=== PATIENT | female | born 1965 | race Caucasian/White ===

== ENCOUNTER 2016-08-08 10:08 | Inpatient (IN) | payer OTHER ==
[~2016-08-08] VITALS: Ht 175.2 cm; Wt 88.7 kg
[2016-08-08] VITALS (8 sets, daily range): BP systolic 122–153; BP diastolic 62–73
--- NOTE | ~2016-08-08 | CON ---
[place], [place] REPORT OF CONSULTATION NAME: GUILLERMO BURGOS UNIT #: [id number] ROOM: 526 DOCTOR: KIAH MCINTOSH MD BIRTHDATE: [birth year] DOS: 08/08/2016 HISTORY OF PRESENT ILLNESS: This is a 50-year-old -[place] woman with a history of coronary artery disease. She had coronary stents deployed in 2006 and 2007, Dr. Lobo did the procedure. First procedure was done following an acute coronary event. She has essential hypertension, hyperlipidemia, type 2 diabetes mellitus, chronic kidney disease stage 3, peripheral arterial disease and peripheral neuropathy, fibromyalgia, GERD and osteoarthritis. She has had gynecological procedures done, lithotripsy. She has never smoked cigarettes, does not use alcoholic beverages. Lives at home. She was feeling fine yesterday. In the middle of the night, she did not feel quite right. She had some pressure-like feeling. She woke around 5:30 this morning and by 8:00, she still had this heavy feeling in the chest with some sharp stabbing feeling as well. Deep breaths did not make any difference to this feeling, it did not radiate to the neck, arm or into the back. She was mildly short of breath. She did have mild diaphoresis and some palpitations. She did not pass out. She took a couple of nitroglycerins with no relief and came to the Emergency Department and was admitted for further workup. Previously, she has not had any PND, orthopnea, or swelling of the legs. Her legs do not hurt when she walks. There has not been any exertional shortness of breath or chest pain recently. HOME MEDICATIONS: Include aspirin, atenolol, furosemide, gabapentin, Imdur 60 mg b.i.d., metformin 1 gram in the morning and 500 in the evening, sublingual nitroglycerin, ranitidine, and tramadol. PHYSICAL EXAMINATION: GENERAL: This reveals the patient who is slightly overweight, very pleasant, alert. She is very comfortable. There is no anemia, thyromegaly, finger clubbing. She is not jaundiced. VITAL SIGNS: Pulse is irregular at 64, blood pressure 125/62. NECK: Normal JVP. AJR is negative. There is no carotid bruit. HEART: There is no cardiomegaly. Cardiac auscultation reveals no murmurs or rubs. Good pedal pulses and no edema in lower extremities. RESPIRATORY: Clear to percussion and auscultation. There is no chest wall tenderness. ABDOMEN: Supple, nontender, no obvious organomegaly. LABORATORY DATA: An ECG showed normal sinus rhythm with a normal pattern. Troponin I level several hours after onset of symptom was also negative. IMPRESSION: This patient with known coronary artery disease and many risk factors for atherosclerosis had chest symptoms, chest pain along with little diaphoresis and shortness of breath and palpitations. These symptoms are of some concern; however, she is absolutely asymptomatic at this time. RECOMMENDATIONS: I have asked the patient to walk briskly in the hallway a few [place], [place] REPORT OF CONSULTATION NAME: GUILLERMO BURGOS UNIT #: [id number] ROOM: 526 DOCTOR: KIAH MCINTOSH MD BIRTHDATE: [birth year] times. If she rules out for an acute myocardial infarction and has no symptoms with moderate activity, I think it would be safe for her to be discharged and can follow up with Dr. Lobo within the next week or two. I thank you on behalf of Dr. Lobo. KIAH MCINTOSH MD CM:CONSTR:REPORT OF CONSULTATION 1916 08/09/16 0547 interface
[~2016-08-08 10:08] MED LIST: APAP/OXYCODONE1 TA2 PO; ASPIRIN81 M1 PO; ATENOLOL25 MG; ATIVAN1 MG PO; BACITRACIN500 U/G1 TP; BACTRIM DS 8001 TAB PO; CETIRIZINE10 MG PO; CIPRO500 MG PO; CIPROFLOXACIN500 MG PO; CLARITIN10 MG PO; CLEOCIN HCL300 MG PO; CLINDAMYCIN HC300 MG PO; CLINDAMYCIN300 MG PO; CUBICIN500 MG IV; Carafate1 GM PO; Carafate1 GM/10 ML PO; DARVOCET N 1001 TAB PO; DAYPRO600 M1 PO; DIABETA5 MG; DIFLUCAN100 MG PO; FISH OIL500 MG; FLEXERIL5 MG PO; GLIPIZIDE5 MG PO; GLUCOPHAGE1000 MG PO; GLUCOPHAGE500 M1 PO; GLUCOPHAGE500 MG; GOOD NEIGHBOR150 MG PO; HUMALOG100 U/ML SC; HYDROCODONE BIT1 T11 PO; IMDUR SA60 MG PO; LANTUS100 U/ML SC; LASIX20 MG PO; LIPITOR40 MG PO; LISINOPRIL2.5 MG PO; MEDROL DOSEPAK4 MG PO; METFORMIN500 MG PO; MOTRIN600 MG PO; MOTRIN800 MG PO; NAPROSYN500 MG PO; NEURONTIN100 MG; NEURONTIN100 MG PO; NEURONTIN300 MG PO; NEURONTIN600 MG PO; NEXIUM40 MG PO; NITROGLYCERIN0.4 MG SL; NORCO 325 MG-51 TAB PO; NYAMYC100000 U/G T; OMEPRAZOLE D/R20 MG PO; PREDNICOT10 MG PO; PREDNISONE20 MG PO; PREVACID SOLUTA30 MG PO; PRILOSEC40 M1 PO; PROVENTIL0.09 MG/A1 INH; ROBAXIN750 MG PO; SEPTRA DS 800 M1 TAB PO; SIMVASTATIN20 MG PO; SIMVASTATIN5 MG PO; TENORMIN25 M1 PO; TRAMADOL HCL50 MG PO; ULTRAM50 MG; VALIUM10 MG PO; VANCOCIN1000 MG/25 IV; VICO10300 PO; VICODIN 5-3001 EACH PO; VICODIN 5/500 505 MG PO; VICODIN 500 MG-1 TAB PO; VICODIN ES 7501 TAB PO; ZANTAC150 MG PO; ZITHROMAX Z PA250 MG PO; ZOCOR40 MG PO; ZOFRAN4 MG PO; ZOVIRAX800 MG PO; ZYVOX600 MG PO
[2016-08-08 10:42] LABS: BASO % 0.6 % (0.0-1.0); EOS # 0.1 10*3/uL (0.0-0.4); EOS % 2.6 % (1.0-4.0); HEMATOCRIT 34.3 % (37.0-47.0); HEMOGLOBIN 11.1 g/dl (12.0-16.0); LYMPH # 1.7 10*3/uL (1.3-4.4); LYMPH % 31.8 % (27.0-41.0); MEAN CELL VOLUME 95.5 fl (81.0-99.0); MEAN CORPUSCULAR HGB 30.9 pg (27.0-31.0); MEAN CORPUSCULAR HGB CONC 32.4 g/dl (33.0-37.0); MEAN PLATELET VOLUME 10.3 fl (9.6-12.3); MONO # 0.2 10*3/uL (0.1-1.0); MONO % 4.1 % (3.0-9.0); NEUT # 3.3 10*3/uL (2.3-7.9); NEUT % 60.7 % (47.0-73.0); PLATELET COUNT AUTOMATED 169 10*3/uL (130-400); RED BLOOD COUNT 3.59 10*6/uL (4.10-5.10); RED CELL DISTRI WIDTH 13.8 % (0-14.5); WHITE BLOOD COUNT 5.4 10*3/uL (4.8-10.8)
[2016-08-08 10:50] LABS: PROTHROMBIN TIME 10.3 SECONDS (9.0-12.4)
[2016-08-08 10:58] LABS: ALKALINE PHOSPHATASE 73 U/L (45-117); BILIRUBIN, TOTAL 0.4 mg/dl (0.2-1.0); BUN 12 mg/dl (7-24); CARBON DIOXIDE 26 mmol/L (21-32); CHLORIDE 108 mmol/L (98-107); EST GLOM FILT AFRICAN AMERICAN > 60 ml/min; GLUCOSE 122 mg/dL (65-99); MAGNESIUM 1.9 mg/dL (1.5-2.1); SGOT/AST 23 IU/L (3-35); SGPT/ALT 41 U/L (12-78); SODIUM 142 mmol/L (136-145); TOTAL PROTEIN 7.9 gm/dL (6.4-8.2); TROPONIN I < 0.015 ng/ml (<0.045)
[2016-08-08] MEDS ORDERED: ZANTAC 150150 MG PO (13:42)
[2016-08-08 18:14] LABS: CKMB 1.8 ng/ml (0.5-3.6); CPK 94 U/L (26-192)
[2016-08-08 18:15] LABS: TROPONIN I < 0.015 ng/ml (<0.045)
[2016-08-09] VITALS: BP 110/62
[2016-08-09 00:44] LABS: CKMB 1.8 ng/ml (0.5-3.6); CPK 91 U/L (26-192)
[2016-08-09 00:45] LABS: TROPONIN I < 0.015 ng/ml (<0.045)
[2016-08-09 05:52] LABS: CKMB 1.7 ng/ml (0.5-3.6); CPK 89 U/L (26-192); TROPONIN I < 0.015 ng/ml (<0.045)
[2016-08-09 05:57] LABS: BASO % 0.5 % (0.0-1.0); EOS # 0.2 10*3/uL (0.0-0.4); EOS % 3.4 % (1.0-4.0); HEMATOCRIT 31.7 % (37.0-47.0); HEMOGLOBIN 10.3 g/dl (12.0-16.0); LYMPH # 2.4 10*3/uL (1.3-4.4); LYMPH % 42.8 % (27.0-41.0); MEAN CELL VOLUME 95.5 fl (81.0-99.0); MEAN CORPUSCULAR HGB CONC 32.5 g/dl (33.0-37.0); MEAN PLATELET VOLUME 10.1 fl (9.6-12.3); MONO # 0.3 10*3/uL (0.1-1.0); MONO % 5.1 % (3.0-9.0); NEUT # 2.6 10*3/uL (2.3-7.9); PLATELET COUNT AUTOMATED 179 10*3/uL (130-400); RED BLOOD COUNT 3.32 10*6/uL (4.10-5.10); RED CELL DISTRI WIDTH 13.7 % (0-14.5); WHITE BLOOD COUNT 5.5 10*3/uL (4.8-10.8)
[2016-08-09 06:04] LABS: HEMOGLOBIN A1c 6.3 % (4.8-5.6)
[2016-08-09 06:15] LABS: PROTHROMBIN TIME 10.6 SECONDS (9.0-12.4)
[2016-08-09 06:28] LABS: CHLORIDE 108 mmol/L (98-107); POTASSIUM 3.9 mmol/L (3.5-5.1); SODIUM 143 mmol/L (136-145)
[2016-08-09 06:38] LABS: ALBUMIN 3.7 gm/dl (3.1-4.5); ALKALINE PHOSPHATASE 57 U/L (45-117); BILIRUBIN, TOTAL 0.4 mg/dl (0.2-1.0); BUN 15 mg/dl (7-24); CARBON DIOXIDE 26 mmol/L (21-32); CHOLESTEROL 159 mg/dL (<200); EST GLOM FILT AFRICAN AMERICAN > 60 ml/min; GLUCOSE 74 mg/dL (65-99); HDL CHOLESTEROL 63 mg/dl (40-60); LDL CHOLESTEROL 66 mg/dL (9-159); MAGNESIUM 2.2 mg/dL (1.5-2.1); PHOSPHOROUS 3.4 mg/dL (2.5-4.9); SGOT/AST 15 IU/L (3-35); SGPT/ALT 36 U/L (12-78); THYROID STIM HORMONE (HS) 0.925 uIU/ml (0.358-4.75); TOTAL PROTEIN 7.5 gm/dL (6.4-8.2); TRIGLYCERIDES 149 mg/dl (<150); VLDL CHOLESTEROL 30 mg/dL (6-40)
[2016-08-09 06:54] LABS: FOLIC ACID 12.91 ng/mL (>5.38); VITAMIN D, 25-HYDROXY 10.3 ng/mL (30-100)
[2016-08-09 08:00] VITALS: BP 98/66
== END 2016-08-09 11:21 | disposition home or self-care (01) | DRG 206 ==
LOC: ED 10:08 → EDHOLD 11:51 → 5E 11:51 → EDHOLD 12:31 → 5E 13:17
PROVIDERS: Emergency Medicine; Internal Medicine
DX: M94.0 Chondrocostal junction syndrome [Tietze] (principal); E11.22 Type 2 diabetes mellitus with diabetic chronic kidney disease; E11.42 Type 2 diabetes mellitus with diabetic polyneuropathy; E11.65 Type 2 diabetes mellitus with hyperglycemia; N18.3 Chronic kidney disease, stage 3 (moderate); K21.9 Gastro-esophageal reflux disease without esophagitis; I25.119 Atherosclerotic heart disease of native coronary artery with unspecified angina pectoris; E11.51 Type 2 diabetes mellitus with diabetic peripheral angiopathy without gangrene; I12.9 Hypertensive chronic kidney disease with stage 1 through stage 4 chronic kidney disease, or unspecified chronic kidney disease; M79.7 Fibromyalgia; Z95.5 Presence of coronary angioplasty implant and graft; Z88.1 Allergy status to other antibiotic agents; Z88.0 Allergy status to penicillin; Z88.8 Allergy status to other drugs, medicaments and biological substances; Z79.899 Other long term (current) drug therapy; Z98.51 Tubal ligation status; Z82.49 Family history of ischemic heart disease and other diseases of the circulatory system; Z80.8 Family history of malignant neoplasm of other organs or systems; Z79.82 Long term (current) use of aspirin; Z79.84 Long term (current) use of oral hypoglycemic drugs

== ENCOUNTER 2016-10-05 05:32 | Emergency (ER) | payer OTHER ==
[~2016-10-05] VITALS: Ht 175.2 cm; Wt 88.5 kg
--- NOTE | ~2016-10-05 | EKG ---
[place], [place] ELECTROCARDIOGRAM REPORT NAME: GUILLERMO BURGOS UNIT #: [id number] ROOM: DOCTOR: KIRT DONAHUE MD BIRTHDATE: [birth year] DOS: 10/05/2016 TIME: 5:40:09 Normal sinus rhythm with PACs, normal intervals, nonspecific ST-T changes. KIRT DONAHUE MD CM:EKGRPT:ELECTROCARDIOGRAM REPORT [id number] 1631 KIRT DONAHUE MD
[~2016-10-05 05:32] MED LIST changes: +ZANTAC 150150 MG PO
[2016-10-05] MEDS ORDERED: BACTROBAN OINT0.9 GM T (05:44)
[2016-10-05] MEDS ORDERED: SEPTRA DS 800 M1 TAB PO (05:44)
[2016-10-05 05:50] LABS: BASO % 0.4 % (0.0-1.0); EOS # 0.2 10*3/uL (0.0-0.4); EOS % 2.2 % (1.0-4.0); HEMATOCRIT 33.2 % (37.0-47.0); HEMOGLOBIN 10.5 g/dl (12.0-16.0); LYMPH # 1.7 10*3/uL (1.3-4.4); LYMPH % 24.3 % (27.0-41.0); MEAN CELL VOLUME 96.5 fl (81.0-99.0); MEAN CORPUSCULAR HGB 30.5 pg (27.0-31.0); MEAN CORPUSCULAR HGB CONC 31.6 g/dl (33.0-37.0); MEAN PLATELET VOLUME 10.2 fl (9.6-12.3); MONO # 0.3 10*3/uL (0.1-1.0); MONO % 3.9 % (3.0-9.0); NEUT # 4.8 10*3/uL (2.3-7.9); NEUT % 69.1 % (47.0-73.0); PLATELET COUNT AUTOMATED 204 10*3/uL (130-400); RED BLOOD COUNT 3.44 10*6/uL (4.10-5.10); RED CELL DISTRI WIDTH 13.2 % (0-14.5); WHITE BLOOD COUNT 6.9 10*3/uL (4.8-10.8)
[2016-10-05 06:04] LABS: PROTHROMBIN TIME 10.6 SECONDS (9.0-12.4)
[2016-10-05 06:08] LABS: ALBUMIN 3.9 gm/dl (3.1-4.5); ALKALINE PHOSPHATASE 81 U/L (45-117); BILIRUBIN, TOTAL 0.2 mg/dl (0.2-1.0); BUN 15 mg/dl (7-24); CARBON DIOXIDE 26 mmol/L (21-32); CHLORIDE 107 mmol/L (98-107); EST GLOM FILT AFRICAN AMERICAN 48 ml/min; GLUCOSE 157 mg/dL (65-99); SGOT/AST 28 IU/L (3-35); SGPT/ALT 34 U/L (12-78); SODIUM 141 mmol/L (136-145); TOTAL PROTEIN 8.3 gm/dL (6.4-8.2)
[2016-10-05 06:11] LABS: TROPONIN I < 0.015 ng/ml (<0.045)
[2016-10-05 06:45] VITALS: BP 109/53
== END 2016-10-05 08:13 | disposition short-term general hospital (02) ==
LOC: ED 05:32
PROVIDERS: Emergency Medicine
DX: R07.89 Other chest pain (principal); R51 Headache; R11.0 Nausea; R06.02 Shortness of breath; I25.10 Atherosclerotic heart disease of native coronary artery without angina pectoris; I12.9 Hypertensive chronic kidney disease with stage 1 through stage 4 chronic kidney disease, or unspecified chronic kidney disease; N18.3 Chronic kidney disease, stage 3 (moderate); K21.9 Gastro-esophageal reflux disease without esophagitis; M19.90 Unspecified osteoarthritis, unspecified site; G62.9 Polyneuropathy, unspecified; E11.9 Type 2 diabetes mellitus without complications; M86.8X7 Other osteomyelitis, ankle and foot; Z79.4 Long term (current) use of insulin; Z88.1 Allergy status to other antibiotic agents; Z88.0 Allergy status to penicillin; Z88.8 Allergy status to other drugs, medicaments and biological substances; Z79.899 Other long term (current) drug therapy; Z79.82 Long term (current) use of aspirin

== ENCOUNTER 2017-02-16 04:48 | Inpatient (IN) | payer OTHER ==
[~2017-02-16] VITALS: Ht 175.3 cm; Wt 85.8 kg
[2017-02-16] VITALS (42 sets, daily range): BP systolic 96–159; BP diastolic 49–91
--- NOTE | ~2017-02-16 | CON ---
[place], [place] REPORT OF CONSULTATION NAME: GUILLERMO BURGOS UNIT #: [id number] ROOM: [place] [address] DOCTOR: KIRT DONAHUE MD BIRTHDATE: [birth year] DOS: 02/16/2017 HISTORY OF PRESENT ILLNESS: The patient is very well known to me with a known history of significant coronary artery disease. The patient has a catheterization in October showed 100% blockage of the posterior descending branch of the RCA, anterior descending artery about 50% stenosis. The patient had 2 stents in 2006 and 2007, came in with severe chest discomfort started on a nitro drip and ruled out for myocardial infarction. No acute EKG change suggestion of myocardial ischemia. The patient insisted to have chest discomfort, and today, she feels somewhat better. I was called to see the patient yesterday had discussed with Dr. Wilson because of her persistent pain already moans severe coronary artery disease. The patient has intermittent pain radiating to the left arm, suggestion of unstable angina, resting angina. We will set her up for heart catheterization. The patient is already on maximum medication. She does have some shortness of breath, was diaphoretic. As mentioned, no acute EKG changes, myocardial injury or infarction. PAST MEDICAL HISTORY: Coronary artery disease, hypertension, hyperlipidemia, known coronary artery disease, peripheral arterial disease, neuropathy. PAST SURGICAL HISTORY: D and C, coronary artery disease, stent placement, lithotripsy cystectomy, tubal ligation. SOCIAL HISTORY: Consumes alcohol occasionally. Denies any drug abuse or tobacco abuse. FAMILY HISTORY: Positive for coronary artery disease. ALLERGIES: BACTRIM, VANCOMYCIN, IODINE, OLMESARTAN AND PENICILLIN. HOME MEDICATIONS: Aspirin, carvedilol, Lasix, isosorbide, insulin, metformin, nitroglycerin, and ranitidine. REVIEW OF SYSTEMS: CONSTITUTIONAL: ____. HEENT: Unremarkable. CARDIOVASCULAR: As reported in HPI. GASTROINTESTINAL: No nausea, no vomiting. GENITOURINARY: No dysuria, hematuria. NEUROLOGIC: No syncope. PHYSICAL EXAMINATION: VITAL SIGNS: Blood pressure is 120/60. HEENT: Unremarkable. NECK: Supple, no JVD. LUNGS: Clear. HEART: Sounds are regular. ABDOMEN: Soft, nontender. NEUROLOGICAL: Stable. [place], [place] REPORT OF CONSULTATION NAME: GUILLERMO BURGOS UNIT #: [id number] ROOM: [place] [address] DOCTOR: ROWAN ALEMAN,KIRT BIRTHDATE: [birth year] LABORATORY DATA: Electrolytes are normal. Liver functions normal. Hemoglobin and hematocrit within normal limits. Cardiac enzymes have been negative. EKG sinus rhythm. No acute ST elevation or depression. IMPRESSION: The patient with known severe coronary artery disease, stent placement placed by me in 2006 and also in 2007, repeat heart catheterization in October showed 100% occluded posterior descending branch of the right coronary artery and moderate disease of the left anterior descending artery with recurrent resting angina, already on maximize medical therapy, class 3 to class 4 angina intermittently because of known recently, continue the beta-blockers, TERENCE inhibitors, lipid-lowering agents, aspirin and we will schedule her for heart catheterization in the morning. Discussed with the patient in detail. The patient does understand the risks and the benefits. She does not want to go anywhere except go to at [place] and I will set it up ____. KIRT DONAHUE MD CM:CONSTR:REPORT OF CONSULTATION 0746 02/18/17 0252 interface
--- NOTE | ~2017-02-16 | CON ---
[place], [place] REPORT OF CONSULTATION NAME: GUILLERMO BURGOS UNIT #: [id number] ROOM: [place] [address] DOCTOR: AKIL QIU MD BIRTHDATE: [birth year] DOS: 02/16/2017 REASON FOR CONSULTATION: Chest pain. HISTORY OF PRESENT ILLNESS: The patient is a 51-year-old woman who has had coronary artery disease documented since her mid 40s. She is typically followed by Dr. Lobo who has done several catheterizations on her in the past. She had angioplasties done in 2006, at which time a stent was placed in her circumflex. She also reportedly had a stent placed in 2007, but the location is not currently available. Her most recent catheterization on 10/08/2069 showed a 50% in-stent stenosis in the circumflex. The LAD and left main were patent. There was a total chronic occlusion of the right coronary artery with distal collateral fill. The patient was managed medically. Ejection fraction at the time of that catheterization was normal at 55%. The patient was well until this morning. Around 4:00 a.m., she was awake when she began to notice a new pain in her shoulders and back. She states that the pain was associated with diaphoresis and nausea. She also notes that she has been quite fatigued lately. She became concerned about this constellation of symptoms and therefore came to the Emergency Room. Carvedilol and nitroglycerin did not seem to give her any relief. Her electrocardiogram did not show any acute ST-T changes. In the hospital, she has been given narcotic pain medications along with intravenous nitroglycerin and her symptoms have improved, but have persisted. At this time, her symptoms have been present for about 12 hours. Her troponin levels have all been normal. PAST MEDICAL HISTORY: Includes the followin. Essential hypertension. 2. Hyperlipidemia. 3. Type 2 diabetes mellitus. 4. Chronic renal insufficiency, graded at stage III. 5. Peripheral arterial disease. 6. Gastroesophageal reflux disease. 7. Degenerative joint disease. 8. Fibromyalgia. 9. Peripheral neuropathy. 10. History of coronary artery disease, status post stents to the circumflex in 2006 and repeat stent placement in 2007 (vessel unknown). 11. Catheterization on 10/08/2016 showed a 50% left circumflex in-stent stenosis with good flow. The left main and LAD were patent. The right coronary artery had a total chronic occlusion with collateral fill. It was felt that she should be treated medically. MEDICATIONS: At the time of admission included aspirin 81 mg daily, carvedilol 3.125 mg b.i.d., the patient takes a half tablet b.i.d., furosemide 20 mg daily as needed, gabapentin 600 mg t.i.d., isosorbide 60 mg b.i.d., lorazepam 0.5 mg daily p.r.n., metformin 500 mg daily at 4:00 p.m. with 1000 mg daily in the morning, ranitidine 150 mg b.i.d., tramadol 50 mg t.i.d., Lantus insulin 45 units at bedtime, nitroglycerin sublingually p.r.n., and Bactroban ointment applied to the right third toe twice a day. [place], [place] REPORT OF CONSULTATION NAME: GUILLERMO BURGOS UNIT #: [id number] ROOM: [place] [address] DOCTOR: AKIL QIU MD BIRTHDATE: [birth year] ALLERGIES: She lists allergies to IODINE including CONTRAST AGENTS, SULFA DRUGS, TRIMETHOPRIM, VANCOMYCIN, TAPE, OLMESARTAN and PENICILLIN. REVIEW OF SYSTEMS: The patient denies diplopia or loss of vision. She denies focal weakness. She denies lightheadedness or syncope. She has felt hot and breathless. She has been diaphoretic. She has been nauseous. She denies vomiting, hemoptysis or hematemesis. She denies any obvious skin rashes. She denies any bleeding from her bowels or bladder. She denies hot or cold intolerance and denies polydipsia or polyuria. She denies any peripheral edema. Remainder of the review of systems is negative except as noted above. FAMILY HISTORY: Negative for early coronary artery disease. SOCIAL HISTORY: The patient does not smoke or consume significant amounts of alcohol. PHYSICAL EXAMINATION: GENERAL: The patient is a well-nourished white female who is awake, alert and oriented. VITAL SIGNS: Pulse is 66 and regular, blood pressure is 130/70 in both arms. She is afebrile. She weighs 85.8 kg and has a body mass index of 27.9. HEENT: Normocephalic, atraumatic. Extraocular muscles are intact. Sclerae are clear. Pupils equal, round and react to light. The oral mucosa is moist. Tongue is midline. NECK: Supple. She has no jugular distention. Carotids are full. I heard no bruits. She had no neck or supraclavicular masses. No thyromegaly. LUNGS: Respirations are unlabored. CHEST: Clear to auscultation and percussion. She has no presacral edema or chest wall tenderness. HEART: Has a regular rhythm. She has a fourth heart sound, but no third heart sound or murmur. The PMI is not displaced. There is no precordial heave, lift or thrill. ABDOMEN: Soft and normally active without masses, organomegaly or bruits. EXTREMITIES: Showed no clubbing, cyanosis or edema. Peripheral pulses are easily palpated in the feet bilaterally. LABORATORY DATA: I reviewed her electrocardiograms and did show sinus rhythm with nonspecific lateral ST segment changes, but no definite ST elevation or depression. Serial troponin levels have been normal x 3. Hemoglobin is 10.7, white count 6300 and platelet count 175,000. Sodium 136, potassium 3.9, BUN 13, creatinine 1.42 with estimated GFR 39. Hemoglobin A1c is 7.3. IMPRESSION: Atypical chest pain. The patient has several risk factors for coronary artery disease and does have a history of coronary artery disease; however, despite prolonged pain, she does not have any objective findings to suggest unstable angina or an acute coronary syndrome. PLAN: For now I think that we should continue to observe her and follow serial cardiac biomarkers. We will also follow serial EKGs. If she does develop acute [place], [place] REPORT OF CONSULTATION NAME: GUILLERMO BURGOS UNIT #: [id number] ROOM: [place] [address] DOCTOR: AKIL QIU MD BIRTHDATE: [birth year] changes or an elevation in troponin, she probably should be transferred to a tertiary center for repeat catheterization. Given her DYE allergy, she will need to be pretreated to prevent anaphylaxis. We will follow her until such time that Dr. Mann can resume his care of the patient. AKIL QIU MD CM:CONSTR:REPORT OF CONSULTATION 1723 02/16/17 1758 interface
[~2017-02-16 04:48] MED LIST changes: +BACTROBAN OINT0.9 GM T
[2017-02-16 05:10] LABS: BASO % 0.6 % (0.0-1.0); EOS # 0.2 10*3/uL (0.0-0.4); EOS % 3.3 % (1.0-4.0); HEMATOCRIT 32.5 % (37.0-47.0); HEMOGLOBIN 10.7 g/dl (12.0-16.0); LYMPH # 2.6 10*3/uL (1.3-4.4); LYMPH % 40.2 % (27.0-41.0); MEAN CELL VOLUME 94.5 fl (81.0-99.0); MEAN CORPUSCULAR HGB 31.1 pg (27.0-31.0); MEAN CORPUSCULAR HGB CONC 32.9 g/dl (33.0-37.0); MEAN PLATELET VOLUME 9.8 fl (9.6-12.3); MONO # 0.3 10*3/uL (0.1-1.0); MONO % 4.9 % (3.0-9.0); NEUT # 3.2 10*3/uL (2.3-7.9); NEUT % 50.7 % (47.0-73.0); PLATELET COUNT AUTOMATED 175 10*3/uL (130-400); RED BLOOD COUNT 3.44 10*6/uL (4.10-5.10); WHITE BLOOD COUNT 6.3 10*3/uL (4.8-10.8)
[2017-02-16 05:26] LABS: ALBUMIN 3.7 gm/dl (3.1-4.5); ALKALINE PHOSPHATASE 114 U/L (45-117); BUN 13 mg/dl (7-24); CHLORIDE 102 mmol/L (98-107); CREATININE 1.42 mg/dL (0.55-1.02); POTASSIUM 3.9 mmol/L (3.5-5.1); SGOT/AST 16 IU/L (3-35); SGPT/ALT 36 U/L (12-78); SODIUM 136 mmol/L (136-145)
[2017-02-16 05:28] LABS: TROPONIN I < 0.015 ng/ml (<0.045)
--- NOTE | 2017-02-16 06:15 | NUR ---
A 51, admitted to [facility], under the services of MCKAYLA Bowden DO with a diagnosis of CHEST PAIN WITH HIGH RISK FOR CARDIAC ETIOLOGY. Chief complaint is CHEST PAIN. Patient arrived via stretcher from ER. Monitor applied. Initial assessment completed. Vital signs taken and recorded. MCKAYLA BOWDEN DO notified of admission to the unit. Orders received. See assessment for past medical history, medications and allergies. Patient and/or family oriented to unit. [facility] visitation policy reviewed. Clothing/patient valuable form completed. YFN ASH
[2017-02-16] MEDS ORDERED: ATIVAN0.5 MG PO (06:50)
[2017-02-16] MEDS ORDERED: COREG3.125 MG PO (06:52)
--- NOTE | 2017-02-16 07:14 | NUR ---
MED REC WAS JUST COMPLETED BY ADMITTING NURSE.
--- NOTE | 2017-02-16 07:30 | NUR ---
Shift chart check completed. RESTING IN BED WITH NTG DRIP AT 10MCG VIA ASYMPTOMATIC SITE
--- NOTE | 2017-02-16 07:59 | NUR ---
SPOKE WITH DR DONAHUE - HEART CATH IN SEPTEMBER SO GET RECORDS ON CHART. DR DONAHUE SPOKE WITH DR ESPARZA
--- NOTE | 2017-02-16 10:05 | NUR ---
SLEEPING AFTER MEDICATED WITH ULTRAM THEN GI COCTAIL & EATING. NTG DRIP REMAINS AT 10mcg
--- NOTE | 2017-02-16 11:05 | NUR ---
GUILLERMO BURGOS [id number] Please refer to the physician's history and physical for past medical history, comorbid conditions, and allergies. Diagnosis: CHEST PAIN WITH HIGH RISK FOR CARIAC ETIOLOGY Jacob Score: 22,LOW OR NO RISK WOUND DESCRIPTIONS: Location of the wound: left 2 second toe Type of wound: unstagable Thickness: Full Size: 0.5cm x 0.5cm x <0.1cm Tunneling: none Undermining: none Sinus Tract: none Presence of Exudate: Amount: None Color: Brown Odor: None Periwound Skin Appearance: Wound edges: callus Pain (associated with wound): patient denied pain at time of assessment How does patient state this happened? Patient states she had been wearing boots and noticed it. Patient stated she follows the [facility] and has an appointment with them March 07. Patient states at her last appointment at the [facility] debridement was performed on this toe. PAtient stated she has been using Bacitracin to the area and covering with 2x2s, howie and wearing a post op shoe as perscribed by the wound care center in [place]. Patient would like to see podiatry while inpatient. Location of the wound: left 5th toe outer aspect Type of wound: unstagable Thickness: Full Size: 0.5cm x 0.5cm x <0.1cm Tunneling: none Undermining: none Sinus Tract: none Presence of Exudate: Amount: None Color: Brown Odor: None Periwound Skin Appearance: Wound edges: callus Pain (associated with wound): patient denied at time of assessment How does patient state this happened? Patient stated this area has been there. Surface the patient is resting on: Position Pro SKIN PREVENTION RECOMMENDATION: 1. Pressure redistribution support surface as appropriate 2. Elevate heels 3. Remove boots/TEDS every shift and reapply 4. Head of bed 30 degrees as tolerated 5. Assess nutrition and hydration 6. Manage moisture 7. Avoid the use of containment devices while in bed 8. Use absorptive products on surfaces limit layers of linens on bed 9. Turn and reposition every 1-2 hours in bed and every 1 hour in chair as tolerated 10. Weight shifts every 15 minutes while up in chair 11. Offloading with pillows or device to keep heels elevated off bed 12. Monitor skin at least every shift 13. Inspect under medical devices twice a day WOUND TREATMENT RECOMMENDATIONS: Consult podiatry
--- NOTE | 2017-02-16 11:16 | NUR ---
PATIENT TALKING OIN THE PHONE - PER THE PATIENT PAIN IS 5/10. NTG DRIP INCREASED TO 20mcg TO SEE IF ANY CHANGES. DR ROJAS HERE AND SPEAKING WITH DR DONAHUE.
--- NOTE | 2017-02-16 11:38 | NUR ---
MORPHINE GIVEN FOR C/O CHEST PAIN - 09/05. NTG DRIP AT 20mcg. OCCASIONALLY RUBS HER CHEST BUT NO SOB/N/V/DIAPHORESIS. NO RADIATION.
--- NOTE | 2017-02-16 11:54 | NUR ---
DR DONAHUE CALLED BACK AFTER SPEAKING WITH DR ROJAS TO SEE IF THE PATIENT HAD BEEN C/O OF PAIN HE HAD REQUESTED TO BE CALLED IF ANY CHANGES OR INCREASE IN PAIN. TOLD NO SHE HAD NOT, HAD DOZED OFF BUT AFTER AWAKENED & ASKED SAID PAIN WAS 5/10. HE IS STILL WILLING TO TRANSFER TO [facility] IF PATIENT DECIDES. CALL WITH ANY CHANGES & HE WILL STILL SEE HER TOMORROW. DR QIU CALLED AND UPDATED ON CONSULT - VS & TROPONIN - X3 REVIEWED. NO FIRTHER ORDERS. MAINTAIN NTG DRIP & PAIN CONTROL WITH NARCOTIC NEEDED.
--- NOTE | 2017-02-16 13:00 | NUR ---
LATE ENTRY - DR DONAHUE CALLED BACK & CHECKED ON THE PATIENT. HE SAID THAT HE WOULD BE HERE TOMORROW AM AROUND 0630. REQUESTED CALLED IF THE PATIENT'S CONDITION CHANGED OR CHANGED HER MIND ABOUT BEING TRANSFERRED TO [facility]
--- NOTE | 2017-02-16 13:32 | NUR ---
PAIN IN LOWER BACK FROM FIBROMYAGIA PER PT. NORCO GIVEN . OXYGEN VIA NC2L PLACED ON FOR CONTINUED MIDSTERNAL PRESSURE 09/05. NO RADIATION OR SOB AT PRESENT. EARLIER ON ADMISSION PAIN WAS DOWN RIGHT ARM. NTG DRIP REMAINS AT 20mcg.
--- NOTE | 2017-02-16 13:57 | NUR ---
RETING AFTER NORCO - EYES CLOSED - NC2L ON. COLOR PALE
--- NOTE | 2017-02-16 14:16 | NUR ---
PER PT PAIN/PRESSURE IN CHEST GONE SINCE OXYGEN APPLIED. LEFT LOWER BACK PAIN BETTER SINCE NORCO BUT STILL THERE 1-06/08. FAMILY NOW AT BEDSIDE - NTG DRIP REMAINS AT 20mcg. NSR ON MONITOR. COLOR SLIGHTLY IMPROVED.
--- NOTE | 2017-02-16 15:18 | NUR ---
PAIN IN CHEST DESCRIBED HEAVINESS WITH MINIMAL RADIATION TO LEFT & BTW SHOULDER BLADES. NTG DRIP INCREASED TO 30mcg & O2 INCREASED TO 3L - HUMIDIFICATION APPLIED.
--- NOTE | 2017-02-16 15:26 | NUR ---
MORPHINE GIVEN FOR INCREASE IN CHEST PAIN & C/O HEADACHE. C/O MILD NAUSEA W/ MILD DIZZINESS - MEDICATED WITH ZOFRAN. STAT EKG ORDERED.
--- NOTE | 2017-02-16 15:40 | NUR ---
PAIN NOW 3/10 DESCRIBED HEAVINESS TO MIDSTERNAL, NO FURTHER RADIATING TO LEFT. MID SCAPULAR PAIN IMPROVED NOW MINIMAL 1/10 WITH DECREASE IN NAUSEA. O2 @ 3L. NTG DRIP REMAIN AT 30mcg
--- NOTE | 2017-02-16 15:54 | NUR ---
PAIN REMAINS HEAVINESS 3/10 MIDSTERNAL WITH NO RADIATION BUT 3/10 BTW SHOULDER BLADES. NAUSEA VERY MINIMAL - O2 @ 3L W/ NTG DRIP @ 30mcg
--- NOTE | 2017-02-16 16:07 | NUR ---
RESTING WITH EYES CLOSED.
--- NOTE | 2017-02-16 16:23 | NUR ---
NTG DRIP DECREASED TO 20mcg/min.
--- NOTE | 2017-02-16 16:51 | NUR ---
DR FLORES HERE
--- NOTE | 2017-02-16 17:26 | NUR ---
PT HAS BAD HEADACHE - NTG TURNED OFF TO SEE IF THAT HELPS PER PT REQUEST AFTER DR QIU HERE AND NOT SURE IT IS CARDIAC IN NATURE. TYLENOL GIVEN.
--- NOTE | 2017-02-16 18:04 | NUR ---
HEADACHE BETTER SINCE NITRO DRIP TURNED OFF. DR QIU WAS HERE WHEN THE LAST TROPONIN CAME BACK NEGATIVE. BACK SORE BUT THIS IS CHRONIC PER PT
--- NOTE | 2017-02-16 20:17 | NUR ---
1944 MEDICATED WITH NORCO 1 PO FOR C/O'S LOW BACK PAIN. RATES A "5". WILL MONITOR. HEP LOCK INTACT. PULSE OX 97% ON RA. RESPIRATIONS EASY. NO DISTRESS NOTED.
--- NOTE | 2017-02-16 21:23 | NUR ---
EARLIER NORCO EFFECTIVE. ATIVAN 0.5MG PO GIVEN PER REQUEST FOR SLEEP. WILL MONITOR, C/O INTERMITTENT SHARP PAIN DOWN RIGHT ARM IN TO FINGERS. THE PAIN COMES AND GOES.
--- NOTE | 2017-02-16 22:02 | NUR ---
EARLIER MEDS EFFECTIVE. RESTING IN BED WITH EYES CLOSED. APPEARS TO BE SLEEPING.
[2017-02-17] VITALS: BP 106/69
--- NOTE | 2017-02-17 01:21 | NUR ---
0120 MORPHINE 2MG IV FOR C/O'S PAIN R SIDE OF NECK, R ARM AND R LEG. DENIES CHEST PAIN OR DISCOMFORT. RATES PAIN A "7". WILL MONITOR.
--- NOTE | 2017-02-17 01:34 | NUR ---
EARLIER PAIN MED EFFECTIVE. RESTING IN BED WITH EYES CLOSED.
[2017-02-17 04:00] VITALS: BP 115/63
--- NOTE | 2017-02-17 04:22 | NUR ---
RESTING IN BED WITH EYES CLOSED. APPEARS TO BE SLEEPING.
[2017-02-17 04:44] LABS: BASO % 0.4 % (0.0-1.0); EOS # 0.2 10*3/uL (0.0-0.4); HEMATOCRIT 28.7 % (37.0-47.0); HEMOGLOBIN 9.3 g/dl (12.0-16.0); LYMPH # 2.2 10*3/uL (1.3-4.4); MEAN CELL VOLUME 94.4 fl (81.0-99.0); MEAN CORPUSCULAR HGB 30.6 pg (27.0-31.0); MEAN CORPUSCULAR HGB CONC 32.4 g/dl (33.0-37.0); MEAN PLATELET VOLUME 10.1 fl (9.6-12.3); MONO # 0.3 10*3/uL (0.1-1.0); MONO % 5.3 % (3.0-9.0); NEUT # 2.6 10*3/uL (2.3-7.9); NEUT % 48.9 % (47.0-73.0); PLATELET COUNT AUTOMATED 154 10*3/uL (130-400); RED BLOOD COUNT 3.04 10*6/uL (4.10-5.10); WHITE BLOOD COUNT 5.3 10*3/uL (4.8-10.8)
[2017-02-17 05:01] LABS: BUN 15 mg/dl (7-24); CHLORIDE 103 mmol/L (98-107); CHOLESTEROL 169 mg/dL (<200); CREATININE 1.16 mg/dL (0.55-1.02); HDL CHOLESTEROL 49 mg/dl (40-60); LDL CHOLESTEROL 94 mg/dL (9-159); MAGNESIUM 1.9 mg/dL (1.5-2.1); PHOSPHOROUS 4.3 mg/dL (2.5-4.9); POTASSIUM 4.5 mmol/L (3.5-5.1); SODIUM 138 mmol/L (136-145); TRIGLYCERIDES 128 mg/dl (<150); VLDL CHOLESTEROL 26 mg/dL (6-40)
[2017-02-17 05:02] LABS: TROPONIN I < 0.015 ng/ml (<0.045)
--- NOTE | 2017-02-17 06:10 | NUR ---
0525 NORCO 1 PO GIVEN FOR C/O'S BACK PAIN. RATES PAIN A "7". WILL MONITOR. 0610 EARLIER PAIN MED EFFECTIVE. RESTING IN BED WITH EYES CLOSED. NO DISTRESS NOTED. CONDITION GUARDED.
--- NOTE | 2017-02-17 07:26 | NUR ---
Shift chart check completed.24 HR chart check completed.
--- NOTE | 2017-02-17 07:39 | NUR ---
DR DONAHUE IN TO SEE PATIENT. PT [facility].
[2017-02-17 08:00] VITALS: BP 132/80
--- NOTE | 2017-02-17 08:21 | NUR ---
ON ASSESSMENT PATIENT RESTING QUIETLY, VERY TALKATIVE. NO VOICED COMPLAINTS OF PAIN AT THIS TIME. LUNGS CLEAR.
--- NOTE | 2017-02-17 09:24 | NUR ---
LORTAB FOR PAIN IN BACK/ARM "10/06.
--- NOTE | 2017-02-17 11:15 | NUR ---
ATIVAN PO FOR C/O ANXIETY "ABOUT HEART CATH".
[2017-02-17 12:00] VITALS: BP 121/67; BP 151/61
--- NOTE | 2017-02-17 12:01 | NUR ---
LYING ON HER SIDE, APPEARS TO BE ASLEEP AT PRESENT. NO DYSRHYTHMIAS. EARLIER MEDS APPARENTLY EFFECTIVE.
--- NOTE | 2017-02-17 14:46 | NUR ---
FAMILY AT BEDSIDE. DAUGHTER SAID PT HAVING PAIN. BP 136/80. NO DYSRHYTHMIAS. LORTAB FOR C/O BACK/ARM PAIN. SHE HAS BEEN ANXIOUS ALL DAY TO SEE HER GRANDCHILDREN AND I HAD TOLD HER THAT I WOULD TAKE HER TO THE LOBBY TO SEE THEM. I HAVE TOLD HER NOW THAT IF SHE'S HAVING ANY PAIN THAT SHE WILL HAVE TO STAY IN THE [facility] AND NOT BE TAKEN TO THE LOBBY. SHE SAID SHE "UNDERTANDS".
[2017-02-17 16:00] VITALS: BP 113/56
--- NOTE | 2017-02-17 16:27 | NUR ---
CLAIMS SHE'S FEELING "BETTER" SINCE THE VICODIN WAS GIVEN.
[2017-02-17 20:00] VITALS: BP 109/65
--- NOTE | 2017-02-17 20:33 | NUR ---
1930 RESTING IN BED TALKING ON THE PHONE. NO C/O'S VOICED AT PRESENT. HEP LOCK INTACT 2009 MEDICATED WITH NORCO PO FOR C/O'S PAIN R ARM. RATES PAIN A "6". WILL MONITOR. NO DISTRESS NOTED. MALA LEONARD CALLED FOR BED. STATES THAT THEY WILL NOT KNOW UNTIL AFTER 0600 TOMORROW. TOLD TO CALL [employer]ING [employer]ING SUPERVISOR THEN. AMBULANCE INSTITUTIONAL RESEARCH COORDINATOR.
--- NOTE | 2017-02-17 21:30 | NUR ---
EARLIER NORCO SL EFFECTIVE.
--- NOTE | 2017-02-17 22:21 | NUR ---
RESTING IN BED WITH EYES CLOSED. APPEARS TO BE SLEEPING.
[2017-02-18] VITALS: BP 120/60
--- NOTE | 2017-02-18 00:21 | NUR ---
EARLIER RESTORIL GIVEN AT 2315 EFFECTIVE. RESTING IN BED WITH EYES CLOSED.
[2017-02-18 04:00] VITALS: BP 96/50
--- NOTE | 2017-02-18 04:14 | NUR ---
0330 NORCO PO WITH SMALL SIP OF H20, FOR PAIN R SHOULDER. WILL MONITOR. NPO FOR HEART CATH IN AM 0410 EARLIER PAIN MED EFFECTIVE. RESTING IN BED WITH EYES CLOSED.
--- NOTE | 2017-02-18 06:25 | NUR ---
0600 [facility] CALLED - REPORT GIVEN. AMBULANCE PRENATAL NURSE CALLED TO PICK PT UP. 0615. WOUND PHOTOS TAKEN LEFT FOOT AND AREAS REDRESSED WITH BACTROBAN/KERLIX 0625 [facility] HERE FOR TRANSPORT. REPORT GIVEN. PT REMAINS WIHTOUT C/O' CHEST PAIN. PROPER PAPERS SIGNED AND SENT WITH PT. CONDITION GUARDED.
== END 2017-02-18 06:42 | disposition short-term general hospital (02) | DRG 302 ==
LOC: ED 04:48 → EDHOLD 05:34 → ICCU 05:47
PROVIDERS: Emergency Medicine Emergency Medical Services; Internal Medicine; ADMIT Internal Medicine
DX: I25.110 Atherosclerotic heart disease of native coronary artery with unstable angina pectoris (principal); N17.0 Acute kidney failure with tubular necrosis; R07.89 Other chest pain; E11.65 Type 2 diabetes mellitus with hyperglycemia; N18.3 Chronic kidney disease, stage 3 (moderate); I12.9 Hypertensive chronic kidney disease with stage 1 through stage 4 chronic kidney disease, or unspecified chronic kidney disease; K21.9 Gastro-esophageal reflux disease without esophagitis; M19.90 Unspecified osteoarthritis, unspecified site; E11.51 Type 2 diabetes mellitus with diabetic peripheral angiopathy without gangrene; E11.22 Type 2 diabetes mellitus with diabetic chronic kidney disease; E78.5 Hyperlipidemia, unspecified; E11.40 Type 2 diabetes mellitus with diabetic neuropathy, unspecified; D64.9 Anemia, unspecified; Z88.1 Allergy status to other antibiotic agents; Z91.041 Radiographic dye allergy status; Z88.0 Allergy status to penicillin; Z91.018 Allergy to other foods; Z88.8 Allergy status to other drugs, medicaments and biological substances; Z79.82 Long term (current) use of aspirin; Z79.84 Long term (current) use of oral hypoglycemic drugs; Z79.4 Long term (current) use of insulin; Z95.5 Presence of coronary angioplasty implant and graft; Z79.899 Other long term (current) drug therapy; Z98.51 Tubal ligation status; Z72.89 Other problems related to lifestyle; Z82.49 Family history of ischemic heart disease and other diseases of the circulatory system; Z80.8 Family history of malignant neoplasm of other organs or systems; Z82.3 Family history of stroke; Z83.3 Family history of diabetes mellitus

== ENCOUNTER 2017-07-07 18:27 | Emergency (ER) | payer OTHER ==
[~2017-07-07] VITALS: Wt 77.1 kg
[~2017-07-07 18:27] MED LIST changes: +ATIVAN0.5 MG PO; +COREG3.125 MG PO
[2017-07-07] MEDS ORDERED: NOVOLOG MI100 UNIT/1 SQ (19:27)
[2017-07-07 19:28] LABS: BASO % 0.3 % (0.0-1.0); EOS # 0.4 10*3/uL (0.0-0.4); EOS % 3.7 % (1.0-4.0); HEMATOCRIT 26.5 % (37.0-47.0); HEMOGLOBIN 8.3 g/dl (12.0-16.0); LYMPH # 1.9 10*3/uL (1.3-4.4); MEAN CORPUSCULAR HGB 28.8 pg (27.0-31.0); MEAN CORPUSCULAR HGB CONC 31.3 g/dl (33.0-37.0); MEAN PLATELET VOLUME 9.1 fl (9.6-12.3); MONO # 0.8 10*3/uL (0.1-1.0); MONO % 6.9 % (3.0-9.0); NEUT # 7.9 10*3/uL (2.3-7.9); NEUT % 71.7 % (47.0-73.0); PLATELET COUNT AUTOMATED 278 10*3/uL (130-400); RED BLOOD COUNT 2.88 10*6/uL (4.10-5.10); RED CELL DISTRI WIDTH 15.5 % (0-14.5)
[2017-07-07 19:43] LABS: ACT PARTIAL THROMBO TIME 34.8 SECONDS (20.8-31.5); INTERNATIONAL NORM RATIO 1.1 (2.0-3.5)
[2017-07-07 19:46] LABS: ALBUMIN 2.4 gm/dl (3.1-4.5); ALKALINE PHOSPHATASE 252 U/L (45-117); BUN 27 mg/dl (7-24); CHLORIDE 96 mmol/L (98-107); CREATININE 1.18 mg/dL (0.55-1.02); POTASSIUM 4.4 mmol/L (3.5-5.1); SGOT/AST 16 IU/L (3-35); SGPT/ALT 14 U/L (12-78); SODIUM 132 mmol/L (136-145)
[2017-07-07 19:47] LABS: TROPONIN I < 0.015 ng/ml (<0.045)
[2017-07-08 09:53] VITALS: BP 92/53
== END 2017-07-08 10:24 | disposition short-term general hospital (02) ==
LOC: ED 18:27
PROVIDERS: Emergency Medicine
DX: R07.89 Other chest pain (principal); I12.9 Hypertensive chronic kidney disease with stage 1 through stage 4 chronic kidney disease, or unspecified chronic kidney disease; E11.22 Type 2 diabetes mellitus with diabetic chronic kidney disease; N18.3 Chronic kidney disease, stage 3 (moderate); I25.10 Atherosclerotic heart disease of native coronary artery without angina pectoris; M79.7 Fibromyalgia; M19.90 Unspecified osteoarthritis, unspecified site; G62.9 Polyneuropathy, unspecified; K21.9 Gastro-esophageal reflux disease without esophagitis; Z98.51 Tubal ligation status; Z90.89 Acquired absence of other organs; Z98.890 Other specified postprocedural states; Z79.899 Other long term (current) drug therapy; Z79.82 Long term (current) use of aspirin; Z79.4 Long term (current) use of insulin; Z88.1 Allergy status to other antibiotic agents; Z88.8 Allergy status to other drugs, medicaments and biological substances; Z88.0 Allergy status to penicillin; Z95.1 Presence of aortocoronary bypass graft

== ENCOUNTER 2017-07-12 13:46 | Emergency (ER) | payer OTHER ==
[~2017-07-12] VITALS: Ht 176.5 cm; Wt 75.3 kg
[~2017-07-12 13:46] MED LIST changes: +NOVOLOG MI100 UNIT/1 SQ
[2017-07-12] MEDS ORDERED: ATORVASTATIN CA10 M1 PO (14:06)
[2017-07-12] MEDS ORDERED: ESCITALOPRAM OX10 MG PO (14:06)
[2017-07-12] MEDS ORDERED: OXYCODONE HCL10 M1 PO (14:06)
[2017-07-12] MEDS ORDERED: [UNRECOGNIZED DRUG - CODE] MC (14:07)
[2017-07-12] MEDS ORDERED: CYCLOBENZAPRINE10 MG PO (14:08)
[2017-07-12] MEDS ORDERED: NOVOLOG FL100 UNIT/1 SQ (14:08)
[2017-07-12 14:09] LABS: BASO # 0.1 10*3/uL (0.0-0.1); BASO % 0.3 % (0.0-1.0); EOS # 0.1 10*3/uL (0.0-0.4); EOS % 0.8 % (1.0-4.0); HEMATOCRIT 26.6 % (37.0-47.0); HEMOGLOBIN 8.1 g/dl (12.0-16.0); LYMPH # 2.8 10*3/uL (1.3-4.4); LYMPH % 18.2 % (27.0-41.0); MEAN CORPUSCULAR HGB 28.6 pg (27.0-31.0); MEAN CORPUSCULAR HGB CONC 30.5 g/dl (33.0-37.0); MEAN PLATELET VOLUME 9.5 fl (9.6-12.3); MONO % 6.5 % (3.0-9.0); NEUT # 11.2 10*3/uL (2.3-7.9); NEUT % 73.5 % (47.0-73.0); PLATELET COUNT AUTOMATED 313 10*3/uL (130-400); RED BLOOD COUNT 2.83 10*6/uL (4.10-5.10); RED CELL DISTRI WIDTH 15.2 % (0-14.5); WHITE BLOOD COUNT 15.2 10*3/uL (4.8-10.8)
[2017-07-12] MEDS ORDERED: POTASSIUM CHLO20 ME4 PO (14:09)
[2017-07-12] MEDS ORDERED: FEROSUL325 MG PO (14:09)
[2017-07-12] MEDS ORDERED: DOC-Q-LACE100 MG PO (14:10)
[2017-07-12 14:27] LABS: ALBUMIN 2.3 gm/dl (3.1-4.5); ALKALINE PHOSPHATASE 305 U/L (45-117); BUN 19 mg/dl (7-24); CHLORIDE 97 mmol/L (98-107); CREATININE 1.15 mg/dL (0.55-1.02); POTASSIUM 4.4 mmol/L (3.5-5.1); SGOT/AST 28 IU/L (3-35); SGPT/ALT 21 U/L (12-78); SODIUM 132 mmol/L (136-145); TOTAL PROTEIN 8.1 gm/dL (6.4-8.2)
[2017-07-12 14:29] LABS: TROPONIN I < 0.015 ng/ml (<0.045)
[2017-07-12 14:49] LABS: ACT PARTIAL THROMBO TIME 32.1 SECONDS (20.8-31.5); INTERNATIONAL NORM RATIO 1.1 (2.0-3.5)
[2017-07-13 05:57] LABS: BILIRUBIN NEGATIVE (NEGATIVE); BLOOD NEGATIVE (NEGATIVE); CLARITY SL CLOUDY (CLEAR); COLOR YELLOW (YELLOW); GLUCOSE NEGATIVE (NEGATIVE); KETONE NEGATIVE (NEGATIVE); LEUKO ESTERASE TRACE (NEGATIVE); NITRITE NEGATIVE (NEGATIVE); SPECIFIC GRAVITY 1.015 (1.005-1.030); UROBILINOGEN 0.2 E.U./dl (0.2-1.0)
[2017-07-13 06:08] LABS: BACTERIA 1+; EPITHELIAL CELLS 16-20; YEAST 1+
[2017-07-13 17:36] VITALS: BP 140/75
== END 2017-07-13 17:45 | disposition short-term general hospital (02) ==
LOC: ED 13:46
PROVIDERS: Nurse Practitioner Family
DX: R07.9 Chest pain, unspecified (principal); M86.8X8 Other osteomyelitis, other site; Z88.1 Allergy status to other antibiotic agents; Z88.0 Allergy status to penicillin; Z88.8 Allergy status to other drugs, medicaments and biological substances; Z79.899 Other long term (current) drug therapy; Z79.82 Long term (current) use of aspirin

== ENCOUNTER 2017-08-16 13:01 | Inpatient (IN) | payer OTHER ==
[~2017-08-16] VITALS: Ht 172.7 cm; Wt 76.3 kg
[2017-08-16] VITALS (16 sets, daily range): BP systolic 99–122; BP diastolic 31–68
--- NOTE | ~2017-08-16 | CON ---
[place], [place] REPORT OF CONSULTATION NAME: GUILLERMO BURGOS UNIT #: [id number] ROOM: 521 DOCTOR: ELMA MELENDZE MD BIRTHDATE: [birth year] DOS: 08/19/2017 HISTORY OF PRESENT ILLNESS: A 51-year-old patient who has presented with multiple medical problems, among which has profound anemia, hemoglobin of 6, hematocrit 21, mixed micro and macrocytic indices, platelets of 238. INR of 1.1 with a history of chronic decubitus ulcers and chronic diseases and status post multi transfusion, improvement of the latest H and H to 8.5 and 27. PAST MEDICAL HISTORY: Status post coronary artery disease, CABG, fibromyalgia, gastroesophageal reflux, osteomyelitis of the sternum history, peripheral neuropathy, essential hypertension, diabetes mellitus, chronic renal disease. PAST SURGICAL HISTORY: Status post D and C, cystoscopy, tubal ligation, coronary artery disease, CABG. SOCIAL HISTORY: Nonsmoker, social alcohol consumer. FAMILY HISTORY: Noncontributory. ALLERGIES: BACTRIM, IODINE, ____ AND PENICILLIN. MEDICATIONS: List has been reviewed. The patient has been on iron supplementation and ranitidine as well as others. REVIEW OF SYSTEMS: HEENT: Denies double vision, blurry vision. RESPIRATORY: Denies acute shortness of breath; however, chronically short of breath. CARDIOVASCULAR: Denies chest pain. DIGESTIVE SYSTEM: Anemia profound with epigastric nonspecific distress. No gross bleeding. PHYSICAL EXAMINATION: VITAL SIGNS: Stable. HEENT: Head normocephalic, nontraumatic. Mouth and buccal mucosa benign, edentulous. NECK: Supple, no thyromegaly, no cervical lymphadenopathy. CHEST: Symmetric anatomy, equal expansion. No wheeze, no rhonchi. EXTREMITIES: Multiple scratch salinas on the lower extremity, particularly and with small wounds. 1+ bilateral edema. Coccyx area, there is a large 5 x 5 deep decubitus ulcer which is dressed. NEUROLOGIC: Alert and oriented. LABORATORY DATA: Labs reviewed, records reviewed. On records reviewed. Her BUN and creatinine has been 16 and 1.04, GFR greater than 60. Electrolytes balanced. B12 and folate are within normal limit. IMPRESSION: Profound anemia, history of protein-calorie malnutrition, coronary artery disease, reflux history, diabetes history, hypertension, chronic renal insufficiency; all has been recognized patient. [place], [place] REPORT OF CONSULTATION NAME: GUILLERMO BURGOS UNIT #: [id number] ROOM: 521 DOCTOR: AL ALEMAN,ELMA BIRTHDATE: [birth year] PLAN AND DISCUSSION: We are going to proceed with the EGD and colonoscopy. Source of anemia is under investigation. She is status post transfusion. ELMA MELENDEZ MD CM:CONSTR:REPORT OF CONSULTATION 1817 08/20/17 1908 interface
--- NOTE | ~2017-08-16 | O ---
[place], [place] OPERATIVE NOTE NAME: GUILLERMO BURGOS UNIT #: [id number] ROOM: 521 DOCTOR: ELMA MELENDEZ MD BIRTHDATE: [birth year] DOS: 08/19/2017 HISTORY OF PRESENT ILLNESS: This is a 51-year-old patient who presented with a chief complaint of anemia, status post multi transfusion. PROCEDURE: Today's procedure part of investigation is panendoscopy and colonoscopy. PREMEDICATION: Versed and Diprivan. SCOPE: Olympus forward-viewing gastroscope Q10 video. REPORT: After putting the patient in left lateral position and application of lubricant to the scope, the scope was introduced. Thereafter, under direct visualization, advanced through the length of esophagus without difficulty. Gastric pouch was entered. Evidence of mild gastritis seen. Duodenal bulb, second and third part within normal limits. No evidence of bleeding seen. The patient extubated after antral biopsy for H. pylori. IMPRESSION AND PLAN: Mild gastritis, status post biopsy. This is not the source of blood loss. As we have investigated. Therefore, we are going to proceed with colonoscopy. The patient has presented with chief complaint of anemia, status post transfusion endoscopic assessment of upper GI tract has not been yielding any etiology for anemia. PROCEDURE: Today's procedure part of investigation is colonoscopy. PREMEDICATION: Versed and Diprivan. SCOPE: Olympus folding colonoscope 10L video. REPORT: After putting the patient in left lateral position and application of lubricant to the scope was introduced. Thereafter, under direct visualization, advanced through the length of colon without difficulty. Base of the cecum explored, photographed. Appendiceal orifice was identified. Air was suctioned out. The patient was extubated, tolerated procedure well. IMPRESSION: Normal colonoscopic examination. PLAN AND DISCUSSION: Gastrointestinal tract is not contributory to acute causes of GI bleed. Therefore, chronic diseases of multifactorial blood loss issues, has to be concerned particularly chronic blood loss through the decubitus ulcers. [place], [place] OPERATIVE NOTE NAME: GUILLERMO BURGOS UNIT #: [id number] ROOM: 521 DOCTOR: ELMA MELENDEZ MD BIRTHDATE: [birth year] ELMA MELENDEZ MD CM:OPRECORD:OPERATIVE NOTE 181 17 ELMA MELENDEZ MD 08/20/171916 interface
[~2017-08-16 13:01] MED LIST changes: +ATORVASTATIN CA10 M1 PO; +CYCLOBENZAPRINE10 MG PO; +DOC-Q-LACE100 MG PO; +ESCITALOPRAM OX10 MG PO; +FEROSUL325 MG PO; +LANTUS SOL100 UNIT/1 SQ; +NOVOLOG FL100 UNIT/1 SQ; +OXYCODONE HCL10 M1 PO; +POTASSIUM CHLO20 ME4 PO; +[UNRECOGNIZED DRUG - CODE] MC
[2017-08-16 15:43] LABS: BASO % 0.2 % (0.0-1.0); EOS # 0.4 10*3/uL (0.0-0.4); EOS % 4.3 % (1.0-4.0); HEMATOCRIT 21.1 % (37.0-47.0); HEMOGLOBIN 6.2 g/dl (12.0-16.0); LYMPH # 1.5 10*3/uL (1.3-4.4); LYMPH % 17.9 % (27.0-41.0); MEAN CELL VOLUME 99.5 fl (81.0-99.0); MEAN CORPUSCULAR HGB 29.2 pg (27.0-31.0); MEAN CORPUSCULAR HGB CONC 29.4 g/dl (33.0-37.0); MEAN PLATELET VOLUME 9.4 fl (9.6-12.3); MONO # 0.4 10*3/uL (0.1-1.0); MONO % 4.7 % (3.0-9.0); NEUT # 6.1 10*3/uL (2.3-7.9); NEUT % 72.7 % (47.0-73.0); PLATELET COUNT AUTOMATED 238 10*3/uL (130-400); RED BLOOD COUNT 2.12 10*6/uL (4.10-5.10); RED CELL DISTRI WIDTH 15.3 % (0-14.5); WHITE BLOOD COUNT 8.4 10*3/uL (4.8-10.8)
[2017-08-16 15:52] LABS: ACT PARTIAL THROMBO TIME 31.9 SECONDS (20.8-31.5); INTERNATIONAL NORM RATIO 1.1 (2.0-3.5)
[2017-08-16 16:08] LABS: ALBUMIN 2.3 gm/dl (3.1-4.5); CREATININE 1.27 mg/dL (0.55-1.02); POTASSIUM 4.9 mmol/L (3.5-5.1); TOTAL PROTEIN 7.3 gm/dL (6.4-8.2)
[2017-08-16] MEDS ORDERED: CARDIZEM120 MG PO (16:58)
[2017-08-16] MEDS ORDERED: LOPRESSOR25 MG PO (16:59)
[2017-08-16] MEDS ORDERED: CIPRO500 MG PO (17:00)
[2017-08-17] VITALS: BP 120/65
[2017-08-17 07:40] LABS: BASO % 0.4 % (0.0-1.0); EOS # 0.4 10*3/uL (0.0-0.4); LYMPH # 1.9 10*3/uL (1.3-4.4); LYMPH % 24.9 % (27.0-41.0); MEAN CORPUSCULAR HGB CONC 30.7 g/dl (33.0-37.0); MEAN PLATELET VOLUME 9.3 fl (9.6-12.3); MONO # 0.5 10*3/uL (0.1-1.0); MONO % 6.2 % (3.0-9.0); NEUT # 4.8 10*3/uL (2.3-7.9); NEUT % 63.2 % (47.0-73.0); PLATELET COUNT AUTOMATED 258 10*3/uL (130-400); RED BLOOD COUNT 2.93 10*6/uL (4.10-5.10); RED CELL DISTRI WIDTH 17.8 % (0-14.5); RETICULOCYTE % 2.48 % (0.50-2.50); WHITE BLOOD COUNT 7.6 10*3/uL (4.8-10.8)
[2017-08-17 07:43] LABS: HEMATOCRIT 27.7 % (37.0-47.0); HEMOGLOBIN 8.5 g/dl (12.0-16.0); MEAN CELL VOLUME 94.5 fl (81.0-99.0)
[2017-08-17 08:00] VITALS: BP 102/61; BP 114/68
[2017-08-17 08:03] LABS: BUN 16 mg/dl (7-24); CHLORIDE 100 mmol/L (98-107); CHOLESTEROL 103 mg/dL (<200); CREATININE 1.04 mg/dL (0.55-1.02); FREE T4 1.07 ng/dl (0.76-1.46); HDL CHOLESTEROL 42 mg/dl (40-60); IRON 43 ug/dL (50-170); LDL CHOLESTEROL 39 mg/dL (9-159); PHOSPHOROUS 4.3 mg/dL (2.5-4.9); POTASSIUM 4.4 mmol/L (3.5-5.1); SODIUM 137 mmol/L (136-145); TOTAL IRON BINDING CAPACITY 255 ug/dl (250-450); TRIGLYCERIDES 109 mg/dl (<150); VLDL CHOLESTEROL 22 mg/dL (6-40)
[2017-08-17 09:40] LABS: FERRITIN 465.4 ng/mL (10.0-291.0)
[2017-08-17 12:00] VITALS: BP 90/50
[2017-08-17 14:00] VITALS: BP 98/56
[2017-08-17 16:00] VITALS: BP 110/60
[2017-08-17 20:00] VITALS: BP 106/60
[2017-08-18] VITALS: BP 107/48
[2017-08-18 07:49] LABS: BASO % 0.4 % (0.0-1.0); EOS # 0.4 10*3/uL (0.0-0.4); EOS % 5.5 % (1.0-4.0); HEMATOCRIT 25.9 % (37.0-47.0); HEMOGLOBIN 7.8 g/dl (12.0-16.0); LYMPH # 1.8 10*3/uL (1.3-4.4); LYMPH % 26.4 % (27.0-41.0); MEAN CELL VOLUME 94.5 fl (81.0-99.0); MEAN CORPUSCULAR HGB 28.5 pg (27.0-31.0); MEAN CORPUSCULAR HGB CONC 30.1 g/dl (33.0-37.0); MEAN PLATELET VOLUME 9.4 fl (9.6-12.3); MONO # 0.5 10*3/uL (0.1-1.0); MONO % 7.3 % (3.0-9.0); NEUT # 4.1 10*3/uL (2.3-7.9); NEUT % 60.1 % (47.0-73.0); PLATELET COUNT AUTOMATED 246 10*3/uL (130-400); RED BLOOD COUNT 2.74 10*6/uL (4.10-5.10); RED CELL DISTRI WIDTH 17.6 % (0-14.5); WHITE BLOOD COUNT 6.8 10*3/uL (4.8-10.8)
[2017-08-18 08:00] VITALS: BP 127/57
[2017-08-18 08:20] LABS: ALBUMIN 2.4 gm/dl (3.1-4.5); CHLORIDE 99 mmol/L (98-107); POTASSIUM 4.5 mmol/L (3.5-5.1); SODIUM 135 mmol/L (136-145)
[2017-08-18 08:27] LABS: ALKALINE PHOSPHATASE 166 U/L (45-117); BUN 13 mg/dl (7-24); CREATININE 0.97 mg/dL (0.55-1.02); SGOT/AST 13 IU/L (3-35); SGPT/ALT 12 U/L (12-78); TOTAL PROTEIN 7.3 gm/dL (6.4-8.2)
[2017-08-18 12:00] VITALS: BP 113/62
[2017-08-18 14:12] LABS: HEMATOCRIT 27.2 % (37.0-47.0); HEMOGLOBIN 8.5 g/dl (12.0-16.0)
[2017-08-18 16:00] VITALS: BP 105/56
[2017-08-18] MEDS ORDERED: FEROSUL325 MG PO (16:16)
[2017-08-18 20:00] VITALS: BP 116/61
[2017-08-19] VITALS (8 sets, daily range): BP systolic 106–143; BP diastolic 54–76
[2017-08-20] VITALS: BP 134/64
[2017-08-20 06:19] LABS: HEMATOCRIT 29.4 % (37.0-47.0); HEMOGLOBIN 8.8 g/dl (12.0-16.0)
[2017-08-20 08:00] VITALS: BP 91/52
[2017-08-20] MEDS ORDERED: PROTONIX40 MG PO (10:30)
[2017-08-20 12:00] VITALS: BP 98/60
== END 2017-08-20 12:22 | disposition home health service (06) | DRG 314 ==
LOC: ED 13:01 → EDHOLD 14:53 → 5E 14:53
PROVIDERS: Emergency Medicine; Internal Medicine; Internal Medicine Gastroenterology; Student in an Organized Health Care Education/Training Program
PROC: 30233N1 Transfusion of Nonautologous Red Blood Cells into Peripheral Vein, Percutaneous Approach (ICD-10-PCS; 2017-08-16)
PROC: 0DB78ZX Excision of Stomach, Pylorus, Via Natural or Artificial Opening Endoscopic, Diagnostic (ICD-10-PCS; principal; 2017-08-19)
PROC: 0DJD8ZZ Inspection of Lower Intestinal Tract, Via Natural or Artificial Opening Endoscopic (ICD-10-PCS; 2017-08-19)
DX: I95.9 Hypotension, unspecified (principal); E43 Unspecified severe protein-calorie malnutrition; L89.324 Pressure ulcer of left buttock, stage 4; E11.22 Type 2 diabetes mellitus with diabetic chronic kidney disease; M86.9 Osteomyelitis, unspecified; S21.109A Unspecified open wound of unspecified front wall of thorax without penetration into thoracic cavity, initial encounter; E11.42 Type 2 diabetes mellitus with diabetic polyneuropathy; N18.3 Chronic kidney disease, stage 3 (moderate); I25.10 Atherosclerotic heart disease of native coronary artery without angina pectoris; K21.9 Gastro-esophageal reflux disease without esophagitis; I12.9 Hypertensive chronic kidney disease with stage 1 through stage 4 chronic kidney disease, or unspecified chronic kidney disease; E11.65 Type 2 diabetes mellitus with hyperglycemia; D64.9 Anemia, unspecified; K29.70 Gastritis, unspecified, without bleeding; M79.7 Fibromyalgia; X58.XXXA Exposure to other specified factors, initial encounter; M19.90 Unspecified osteoarthritis, unspecified site; E11.51 Type 2 diabetes mellitus with diabetic peripheral angiopathy without gangrene; Z95.5 Presence of coronary angioplasty implant and graft; Z98.51 Tubal ligation status; Z82.49 Family history of ischemic heart disease and other diseases of the circulatory system; Z88.2 Allergy status to sulfonamides; Z88.0 Allergy status to penicillin; Z95.1 Presence of aortocoronary bypass graft; Z80.8 Family history of malignant neoplasm of other organs or systems; Z88.8 Allergy status to other drugs, medicaments and biological substances; Z88.1 Allergy status to other antibiotic agents; Z91.041 Radiographic dye allergy status; Z91.040 Latex allergy status; Z79.899 Other long term (current) drug therapy; Z79.4 Long term (current) use of insulin; Z83.3 Family history of diabetes mellitus; Z82.3 Family history of stroke; Y92.89 Other specified places as the place of occurrence of the external cause; Y93.89 Activity, other specified; Y99.8 Other external cause status; Z68.25 Body mass index [BMI] 25.0-25.9, adult

== ENCOUNTER → 2017-08-26 | Outpatient (CLI) | payer OTHER ==
[~2017-08-26] MED LIST changes: +ASPIRIN ADULT L81 M1 PO; +BACTRIM 400-801 EACH PO; +CARDIZEM120 MG PO; +CLOPIDOGREL75 MG PO; +FERROUSAL325 MG PO; +LOPRESSOR25 MG PO; +Nizoral 2%15 GM T; +PROTONIX40 MG PO
== END | disposition home or self-care (01) ==
LOC: WOUNDCARE 01:57
DX: T81.89XA Other complications of procedures, not elsewhere classified, initial encounter (principal); E11.622 Type 2 diabetes mellitus with other skin ulcer; L89.324 Pressure ulcer of left buttock, stage 4; L98.411 Non-pressure chronic ulcer of buttock limited to breakdown of skin; E11.69 Type 2 diabetes mellitus with other specified complication; M46.20 Osteomyelitis of vertebra, site unspecified; E11.51 Type 2 diabetes mellitus with diabetic peripheral angiopathy without gangrene; E11.40 Type 2 diabetes mellitus with diabetic neuropathy, unspecified; E11.22 Type 2 diabetes mellitus with diabetic chronic kidney disease; I12.9 Hypertensive chronic kidney disease with stage 1 through stage 4 chronic kidney disease, or unspecified chronic kidney disease; N18.3 Chronic kidney disease, stage 3 (moderate); I25.10 Atherosclerotic heart disease of native coronary artery without angina pectoris; K21.9 Gastro-esophageal reflux disease without esophagitis; M19.90 Unspecified osteoarthritis, unspecified site; Y83.8 Other surgical procedures as the cause of abnormal reaction of the patient, or of later complication, without mention of misadventure at the time of the procedure

== ENCOUNTER 2017-08-30 14:41 | Inpatient (IN) | payer OTHER ==
[~2017-08-30] VITALS: Ht 175.2 cm; Wt 75.0 kg
--- NOTE | ~2017-08-30 | CON ---
[place], [place] REPORT OF CONSULTATION NAME: GUILLERMO BURGOS UNIT #: [id number] ROOM: 529 DOCTOR: KIRT DONAHUE MD BIRTHDATE: [birth year] DOS: 09/06/2017 HISTORY OF PRESENT ILLNESS: The patient is very well known to me with a history of severe coronary artery bypass surgery. The patient had an echocardiogram done by me showed an excellent ejection fraction. 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 The patient had a open heart surgery. Cardiac status appears to be stable. She is having some wound infection being followed by the [facility]. The patient denies any chest discomfort. The substernal chest wounds are healing quite well. As mentioned, she had an echocardiogram that showed good ejection fraction. She does have some incisional pain, hemodynamically stable. PAST MEDICAL HISTORY: Severe coronary artery, hypertension, hyperlipidemia, diabetes mellitus, Lucia-Niraj syndrome bypass surgery. MEDICATIONS: She is on the following meds which includes Bumex, insulin, metoprolol, ferrous sulfate, Lovenox, Plavix, aspirin, and insulin. REVIEW OF SYSTEMS: CONSTITUTIONAL: Does complain of some incisional pain and no obvious chest pain. RESPIRATORY: Does have some shortness of breath. Complains of tiredness. GASTROINTESTINAL: No nausea, no vomiting. No GI issues. GENITOURINARY: No issues. Hemodynamically stable. PHYSICAL EXAMINATION: VITAL SIGNS: Blood pressure 110/70. She is in sinus rhythm. HEENT: Unremarkable. NECK: Supple, no JVD. LUNGS: Diminished air entry. HEART: Sounds are regular. ABDOMEN: Soft and nontender. Substernal chest wounds are healing well. LABORATORY DATA: Hemoglobin 8.3, hematocrit 27.3. Electrolytes: Sodium 133 and creatinine is 1. EKG is normal. IMPRESSION: Known history of bypass surgery, hypertension, hyperlipidemia, Lucia-Niraj syndrome, and sternal wound infection. RECOMMENDATIONS: Continue the present care as per ID. Continue the beta blockers as ordered. Continue the postop care and we will follow her up upon discharge. [place], [place] REPORT OF CONSULTATION NAME: GUILLERMO BURGSO UNIT #: [id number] ROOM: 529 DOCTOR: KIRT DONAHUE MD BIRTHDATE: [birth year] KIRT DONAHUE MD CM:CONSTR:REPORT OF CONSULTATION 1039 09/06/17 1109 interface
[~2017-08-30 14:41] MED LIST changes: -ASPIRIN ADULT L81 M1 PO; -BACTRIM 400-801 EACH PO; -CLOPIDOGREL75 MG PO; -FERROUSAL325 MG PO; -Nizoral 2%15 GM T
[2017-08-30 14:46] VITALS: BP 96/39
[2017-08-30 14:51] VITALS: BP 98/60
[2017-08-30 18:10] VITALS: BP 121/63
[2017-08-30 18:17] LABS: BASO % 0.5 % (0.0-1.0); EOS # 0.3 10*3/uL (0.0-0.4); EOS % 3.1 % (1.0-4.0); HEMATOCRIT 28.3 % (37.0-47.0); HEMOGLOBIN 8.7 g/dl (12.0-16.0); LYMPH % 22.7 % (27.0-41.0); MEAN CELL VOLUME 94.3 fl (81.0-99.0); MEAN CORPUSCULAR HGB CONC 30.7 g/dl (33.0-37.0); MEAN PLATELET VOLUME 9.4 fl (9.6-12.3); MONO # 0.5 10*3/uL (0.1-1.0); MONO % 5.4 % (3.0-9.0); PLATELET COUNT AUTOMATED 239 10*3/uL (130-400); RED CELL DISTRI WIDTH 15.2 % (0-14.5); WHITE BLOOD COUNT 8.8 10*3/uL (4.8-10.8)
[2017-08-30 18:25] LABS: ACT PARTIAL THROMBO TIME 27.6 SECONDS (20.8-31.5)
[2017-08-30 18:35] LABS: ALBUMIN 2.9 gm/dl (3.1-4.5); ALKALINE PHOSPHATASE 211 U/L (45-117); BUN 14 mg/dl (7-24); CHLORIDE 96 mmol/L (98-107); SGOT/AST 24 IU/L (3-35); SODIUM 136 mmol/L (136-145); TOTAL PROTEIN 8.1 gm/dL (6.4-8.2)
[2017-08-30 18:46] LABS: SGPT/ALT 30 U/L (12-78)
[2017-08-30 18:52] LABS: TROPONIN I < 0.015 ng/ml (<0.045)
[2017-08-30 20:00] VITALS: BP 102/57
[2017-08-30 20:45] VITALS: BP 106/52
[2017-08-30] MEDS ORDERED: ASPIRIN ADULT L81 M1 PO (22:17)
[2017-08-30] MEDS ORDERED: NITROGLYCERIN0.4 MG SL (22:19)
[2017-08-30] MEDS ORDERED: CLOPIDOGREL75 MG PO (22:19)
[2017-08-30] MEDS ORDERED: FERROUSAL325 MG PO (22:21)
[2017-08-30] MEDS ORDERED: CYCLOBENZAPRINE10 MG PO (22:22)
[2017-08-30] MEDS ORDERED: BACTRIM 400-801 EACH PO (22:28)
[2017-08-30] MEDS ORDERED: OXYCODONE HCL10 M1 PO (22:36)
[2017-08-30 23:50] VITALS: BP 112/82
[2017-08-31] VITALS (10 sets, daily range): BP systolic 98–128; BP diastolic 55–72
[2017-08-31 04:57] LABS: BILIRUBIN NEGATIVE (NEGATIVE); BLOOD TRACE-LYSED (NEGATIVE); CLARITY CLEAR (CLEAR); COLOR YELLOW (YELLOW); GLUCOSE NEGATIVE (NEGATIVE); KETONE NEGATIVE (NEGATIVE); LEUKO ESTERASE 1+ (NEGATIVE); NITRITE NEGATIVE (NEGATIVE); SPECIFIC GRAVITY <= 1.005 (1.005-1.030); UROBILINOGEN 0.2 E.U./dl (0.2-1.0)
[2017-08-31 05:09] LABS: BACTERIA TRACE
[2017-08-31 05:58] LABS: BUN 13 mg/dl (7-24); CHLORIDE 100 mmol/L (98-107); CREATININE 0.94 mg/dL (0.55-1.02); PHOSPHOROUS 4.6 mg/dL (2.5-4.9); POTASSIUM 3.8 mmol/L (3.5-5.1); SODIUM 139 mmol/L (136-145)
[2017-08-31 06:10] LABS: BASO # 0.1 10*3/uL (0.0-0.1); BASO % 0.7 % (0.0-1.0); EOS # 0.3 10*3/uL (0.0-0.4); EOS % 4.9 % (1.0-4.0); HEMATOCRIT 28.8 % (37.0-47.0); HEMOGLOBIN 8.6 g/dl (12.0-16.0); LYMPH # 1.8 10*3/uL (1.3-4.4); LYMPH % 26.2 % (27.0-41.0); MEAN CELL VOLUME 94.4 fl (81.0-99.0); MEAN CORPUSCULAR HGB 28.2 pg (27.0-31.0); MEAN CORPUSCULAR HGB CONC 29.9 g/dl (33.0-37.0); MEAN PLATELET VOLUME 9.9 fl (9.6-12.3); MONO # 0.5 10*3/uL (0.1-1.0); NEUT # 4.2 10*3/uL (2.3-7.9); NEUT % 60.9 % (47.0-73.0); PLATELET COUNT AUTOMATED 191 10*3/uL (130-400); RED BLOOD COUNT 3.05 10*6/uL (4.10-5.10); RED CELL DISTRI WIDTH 15.7 % (0-14.5); WHITE BLOOD COUNT 6.9 10*3/uL (4.8-10.8)
[2017-09-01] VITALS: BP 111/57
[2017-09-01 08:00] VITALS: BP 103/57
[2017-09-01 08:06] LABS: BASO % 0.5 % (0.0-1.0); EOS # 0.5 10*3/uL (0.0-0.4); EOS % 5.6 % (1.0-4.0); HEMATOCRIT 28.8 % (37.0-47.0); HEMOGLOBIN 8.9 g/dl (12.0-16.0); LYMPH # 1.7 10*3/uL (1.3-4.4); LYMPH % 19.9 % (27.0-41.0); MEAN CELL VOLUME 93.8 fl (81.0-99.0); MEAN CORPUSCULAR HGB CONC 30.9 g/dl (33.0-37.0); MEAN PLATELET VOLUME 9.8 fl (9.6-12.3); MONO # 0.6 10*3/uL (0.1-1.0); MONO % 6.8 % (3.0-9.0); NEUT # 5.6 10*3/uL (2.3-7.9); PLATELET COUNT AUTOMATED 218 10*3/uL (130-400); RED BLOOD COUNT 3.07 10*6/uL (4.10-5.10); RED CELL DISTRI WIDTH 15.6 % (0-14.5); WHITE BLOOD COUNT 8.3 10*3/uL (4.8-10.8)
[2017-09-01 08:30] LABS: ALBUMIN 2.7 gm/dl (3.1-4.5); ALKALINE PHOSPHATASE 217 U/L (45-117); BUN 18 mg/dl (7-24); CHLORIDE 97 mmol/L (98-107); CREATININE 0.93 mg/dL (0.55-1.02); POTASSIUM 4.2 mmol/L (3.5-5.1); SGOT/AST 20 IU/L (3-35); SGPT/ALT 25 U/L (12-78); SODIUM 136 mmol/L (136-145); TOTAL PROTEIN 7.7 gm/dL (6.4-8.2)
[2017-09-01 12:00] VITALS: BP 103/58
[2017-09-01 16:00] VITALS: BP 93/49
[2017-09-01 20:00] VITALS: BP 102/66
[2017-09-02] VITALS: BP 105/58
[2017-09-02 07:17] LABS: BASO % 0.4 % (0.0-1.0); EOS # 0.4 10*3/uL (0.0-0.4); EOS % 5.1 % (1.0-4.0); HEMOGLOBIN 8.5 g/dl (12.0-16.0); LYMPH # 1.6 10*3/uL (1.3-4.4); LYMPH % 19.4 % (27.0-41.0); MEAN CELL VOLUME 95.2 fl (81.0-99.0); MEAN CORPUSCULAR HGB 28.9 pg (27.0-31.0); MEAN CORPUSCULAR HGB CONC 30.4 g/dl (33.0-37.0); MEAN PLATELET VOLUME 9.5 fl (9.6-12.3); MONO # 0.6 10*3/uL (0.1-1.0); MONO % 7.7 % (3.0-9.0); NEUT # 5.3 10*3/uL (2.3-7.9); PLATELET COUNT AUTOMATED 209 10*3/uL (130-400); RED BLOOD COUNT 2.94 10*6/uL (4.10-5.10); RED CELL DISTRI WIDTH 15.5 % (0-14.5)
[2017-09-02 08:00] VITALS: BP 112/58
[2017-09-02 12:00] VITALS: BP 107/59
[2017-09-02 16:00] VITALS: BP 103/58
[2017-09-02 20:00] VITALS: BP 98/54
[2017-09-03] VITALS: BP 103/58
[2017-09-03 06:30] LABS: BASO % 0.4 % (0.0-1.0); EOS # 0.3 10*3/uL (0.0-0.4); EOS % 4.1 % (1.0-4.0); HEMATOCRIT 28.9 % (37.0-47.0); HEMOGLOBIN 8.7 g/dl (12.0-16.0); LYMPH # 1.7 10*3/uL (1.3-4.4); LYMPH % 21.5 % (27.0-41.0); MEAN CELL VOLUME 94.8 fl (81.0-99.0); MEAN CORPUSCULAR HGB 28.5 pg (27.0-31.0); MEAN CORPUSCULAR HGB CONC 30.1 g/dl (33.0-37.0); MEAN PLATELET VOLUME 9.7 fl (9.6-12.3); MONO # 0.6 10*3/uL (0.1-1.0); MONO % 7.1 % (3.0-9.0); NEUT # 5.3 10*3/uL (2.3-7.9); NEUT % 66.5 % (47.0-73.0); PLATELET COUNT AUTOMATED 211 10*3/uL (130-400); RED BLOOD COUNT 3.05 10*6/uL (4.10-5.10); RED CELL DISTRI WIDTH 15.4 % (0-14.5)
[2017-09-03 07:07] LABS: ALBUMIN 3.2 gm/dl (3.1-4.5); ALKALINE PHOSPHATASE 201 U/L (45-117); BUN 21 mg/dl (7-24); CHLORIDE 94 mmol/L (98-107); CREATININE 1.02 mg/dL (0.55-1.02); PHOSPHOROUS 4.1 mg/dL (2.5-4.9); SGOT/AST 12 IU/L (3-35); SGPT/ALT 18 U/L (12-78); SODIUM 136 mmol/L (136-145); TOTAL PROTEIN 8.2 gm/dL (6.4-8.2)
[2017-09-03 08:00] VITALS: BP 104/50
[2017-09-03 12:00] VITALS: BP 110/52
[2017-09-03 16:00] VITALS: BP 93/54
[2017-09-03 20:37] VITALS: BP 83/42
[2017-09-04] VITALS: BP 100/56
[2017-09-04 06:29] LABS: BUN 23 mg/dl (7-24); CHLORIDE 96 mmol/L (98-107); CREATININE 0.95 mg/dL (0.55-1.02); POTASSIUM 4.3 mmol/L (3.5-5.1); SODIUM 134 mmol/L (136-145)
[2017-09-04 06:31] LABS: BASO % 0.3 % (0.0-1.0); EOS # 0.4 10*3/uL (0.0-0.4); EOS % 4.5 % (1.0-4.0); HEMATOCRIT 25.7 % (37.0-47.0); LYMPH # 1.7 10*3/uL (1.3-4.4); LYMPH % 21.6 % (27.0-41.0); MEAN CELL VOLUME 94.1 fl (81.0-99.0); MEAN CORPUSCULAR HGB 29.3 pg (27.0-31.0); MEAN CORPUSCULAR HGB CONC 31.1 g/dl (33.0-37.0); MEAN PLATELET VOLUME 9.9 fl (9.6-12.3); MONO # 0.6 10*3/uL (0.1-1.0); MONO % 7.1 % (3.0-9.0); NEUT # 5.2 10*3/uL (2.3-7.9); NEUT % 66.2 % (47.0-73.0); PLATELET COUNT AUTOMATED 196 10*3/uL (130-400); RED BLOOD COUNT 2.73 10*6/uL (4.10-5.10); RED CELL DISTRI WIDTH 15.4 % (0-14.5); WHITE BLOOD COUNT 7.8 10*3/uL (4.8-10.8)
[2017-09-04 08:00] VITALS: BP 96/48
[2017-09-04 12:00] VITALS: BP 100/50
[2017-09-04 16:00] VITALS: BP 91/37
[2017-09-04 16:30] VITALS: BP 96/62
[2017-09-04 20:00] VITALS: BP 109/51
[2017-09-05] VITALS: BP 98/47
[2017-09-05 06:23] LABS: BASO % 0.4 % (0.0-1.0); EOS # 0.3 10*3/uL (0.0-0.4); EOS % 3.6 % (1.0-4.0); HEMATOCRIT 26.2 % (37.0-47.0); LYMPH # 1.9 10*3/uL (1.3-4.4); LYMPH % 25.3 % (27.0-41.0); MEAN CELL VOLUME 94.6 fl (81.0-99.0); MEAN CORPUSCULAR HGB 28.9 pg (27.0-31.0); MEAN CORPUSCULAR HGB CONC 30.5 g/dl (33.0-37.0); MEAN PLATELET VOLUME 9.5 fl (9.6-12.3); MONO # 0.6 10*3/uL (0.1-1.0); MONO % 7.3 % (3.0-9.0); NEUT # 4.7 10*3/uL (2.3-7.9); PLATELET COUNT AUTOMATED 192 10*3/uL (130-400); RED BLOOD COUNT 2.77 10*6/uL (4.10-5.10); RED CELL DISTRI WIDTH 15.1 % (0-14.5); WHITE BLOOD COUNT 7.5 10*3/uL (4.8-10.8)
[2017-09-05 06:36] LABS: BUN 26 mg/dl (7-24); CHLORIDE 94 mmol/L (98-107); POTASSIUM 4.2 mmol/L (3.5-5.1); SODIUM 135 mmol/L (136-145)
[2017-09-05 08:00] VITALS: BP 100/64
[2017-09-05 12:00] VITALS: BP 109/64
[2017-09-05 16:00] VITALS: BP 123/71
[2017-09-05 20:00] VITALS: BP 105/52
[2017-09-05 22:00] VITALS: BP 128/68
[2017-09-06] VITALS: BP 125/43
[2017-09-06 06:46] LABS: BASO % 0.4 % (0.0-1.0); EOS # 0.3 10*3/uL (0.0-0.4); EOS % 3.4 % (1.0-4.0); HEMATOCRIT 27.6 % (37.0-47.0); HEMOGLOBIN 8.3 g/dl (12.0-16.0); LYMPH # 1.9 10*3/uL (1.3-4.4); LYMPH % 22.8 % (27.0-41.0); MEAN CELL VOLUME 93.6 fl (81.0-99.0); MEAN CORPUSCULAR HGB 28.1 pg (27.0-31.0); MEAN CORPUSCULAR HGB CONC 30.1 g/dl (33.0-37.0); MEAN PLATELET VOLUME 9.8 fl (9.6-12.3); MONO # 0.6 10*3/uL (0.1-1.0); MONO % 7.6 % (3.0-9.0); NEUT # 5.5 10*3/uL (2.3-7.9); NEUT % 65.4 % (47.0-73.0); PLATELET COUNT AUTOMATED 217 10*3/uL (130-400); RED BLOOD COUNT 2.95 10*6/uL (4.10-5.10); RED CELL DISTRI WIDTH 15.1 % (0-14.5); WHITE BLOOD COUNT 8.5 10*3/uL (4.8-10.8)
[2017-09-06 06:53] LABS: BUN 30 mg/dl (7-24); CHLORIDE 90 mmol/L (98-107); CREATININE 1.08 mg/dL (0.55-1.02); POTASSIUM 4.3 mmol/L (3.5-5.1); SODIUM 133 mmol/L (136-145)
[2017-09-06 08:00] VITALS: BP 122/58
[2017-09-06 12:00] VITALS: BP 140/67
[2017-09-06] MEDS ORDERED: Nizoral 2%15 GM T (13:51)
== END 2017-09-06 15:31 | disposition home health service (06) | DRG 811 ==
LOC: ED 14:41 → EDHOLD 18:52 → 5E 18:52
PROVIDERS: Family Medicine; Internal Medicine; Student in an Organized Health Care Education/Training Program
PROC: 30233N1 Transfusion of Nonautologous Red Blood Cells into Peripheral Vein, Percutaneous Approach (ICD-10-PCS; principal; 2017-08-30)
PROC: 02HV33Z Insertion of Infusion Device into Superior Vena Cava, Percutaneous Approach (ICD-10-PCS; 2017-08-30)
DX: D64.9 Anemia, unspecified (principal); L89.324 Pressure ulcer of left buttock, stage 4; E43 Unspecified severe protein-calorie malnutrition; L51.1 Stevens-Johnson syndrome; L89.154 Pressure ulcer of sacral region, stage 4; I95.9 Hypotension, unspecified; E11.42 Type 2 diabetes mellitus with diabetic polyneuropathy; E87.8 Other disorders of electrolyte and fluid balance, not elsewhere classified; E11.51 Type 2 diabetes mellitus with diabetic peripheral angiopathy without gangrene; E44.0 Moderate protein-calorie malnutrition; R21 Rash and other nonspecific skin eruption; I25.10 Atherosclerotic heart disease of native coronary artery without angina pectoris; M79.7 Fibromyalgia; K21.9 Gastro-esophageal reflux disease without esophagitis; M19.90 Unspecified osteoarthritis, unspecified site; R74.8 Abnormal levels of other serum enzymes; E11.65 Type 2 diabetes mellitus with hyperglycemia; D72.810 Lymphocytopenia; N18.3 Chronic kidney disease, stage 3 (moderate); I12.9 Hypertensive chronic kidney disease with stage 1 through stage 4 chronic kidney disease, or unspecified chronic kidney disease; E78.5 Hyperlipidemia, unspecified; Z95.5 Presence of coronary angioplasty implant and graft; Z98.51 Tubal ligation status; Z90.721 Acquired absence of ovaries, unilateral; Z90.6 Acquired absence of other parts of urinary tract; Z79.4 Long term (current) use of insulin; Z82.49 Family history of ischemic heart disease and other diseases of the circulatory system; Z80.8 Family history of malignant neoplasm of other organs or systems; Z88.0 Allergy status to penicillin; Z88.2 Allergy status to sulfonamides; Z88.8 Allergy status to other drugs, medicaments and biological substances; Z91.041 Radiographic dye allergy status; Z95.1 Presence of aortocoronary bypass graft; Z86.73 Personal history of transient ischemic attack (TIA), and cerebral infarction without residual deficits; Z79.899 Other long term (current) drug therapy; Z79.82 Long term (current) use of aspirin; Z68.24 Body mass index [BMI] 24.0-24.9, adult; I87.2 Venous insufficiency (chronic) (peripheral)

== ENCOUNTER → 2017-09-09 | Outpatient (CLI) | payer OTHER ==
[~2017-09-09] MED LIST changes: +ASPIRIN ADULT L81 M1 PO; +BACTRIM 400-801 EACH PO; +CLOPIDOGREL75 MG PO; +FERROUSAL325 MG PO; +Nizoral 2%15 GM T
== END | disposition home or self-care (01) ==
LOC: WOUNDCARE 01:42
DX: T81.89XA Other complications of procedures, not elsewhere classified, initial encounter (principal); L89.324 Pressure ulcer of left buttock, stage 4; E11.622 Type 2 diabetes mellitus with other skin ulcer; L98.411 Non-pressure chronic ulcer of buttock limited to breakdown of skin; E11.40 Type 2 diabetes mellitus with diabetic neuropathy, unspecified; E11.22 Type 2 diabetes mellitus with diabetic chronic kidney disease; I13.10 Hypertensive heart and chronic kidney disease without heart failure, with stage 1 through stage 4 chronic kidney disease, or unspecified chronic kidney disease; N18.3 Chronic kidney disease, stage 3 (moderate); E11.69 Type 2 diabetes mellitus with other specified complication; M86.8X7 Other osteomyelitis, ankle and foot; I73.9 Peripheral vascular disease, unspecified; I25.10 Atherosclerotic heart disease of native coronary artery without angina pectoris; K21.9 Gastro-esophageal reflux disease without esophagitis; M19.90 Unspecified osteoarthritis, unspecified site; Y83.8 Other surgical procedures as the cause of abnormal reaction of the patient, or of later complication, without mention of misadventure at the time of the procedure; E11.51 Type 2 diabetes mellitus with diabetic peripheral angiopathy without gangrene

== ENCOUNTER → 2017-09-16 | Outpatient (CLI) | payer OTHER | END | disposition home or self-care (01) | LOC: WOUNDCARE 01:35 | DX: E11.622 Type 2 diabetes mellitus with other skin ulcer (principal); L89.324 Pressure ulcer of left buttock, stage 4; L98.411 Non-pressure chronic ulcer of buttock limited to breakdown of skin; E11.51 Type 2 diabetes mellitus with diabetic peripheral angiopathy without gangrene; E11.40 Type 2 diabetes mellitus with diabetic neuropathy, unspecified; E11.22 Type 2 diabetes mellitus with diabetic chronic kidney disease; I12.9 Hypertensive chronic kidney disease with stage 1 through stage 4 chronic kidney disease, or unspecified chronic kidney disease; N18.3 Chronic kidney disease, stage 3 (moderate); E11.69 Type 2 diabetes mellitus with other specified complication; M86.8X7 Other osteomyelitis, ankle and foot; M46.20 Osteomyelitis of vertebra, site unspecified; I25.10 Atherosclerotic heart disease of native coronary artery without angina pectoris; K21.9 Gastro-esophageal reflux disease without esophagitis; M19.90 Unspecified osteoarthritis, unspecified site ==

== ENCOUNTER → 2017-09-24 | Outpatient (CLI) | payer OTHER | END | disposition home or self-care (01) | LOC: WOUNDCARE 04:34 | DX: E11.622 Type 2 diabetes mellitus with other skin ulcer (principal); L89.324 Pressure ulcer of left buttock, stage 4; L98.411 Non-pressure chronic ulcer of buttock limited to breakdown of skin; E11.40 Type 2 diabetes mellitus with diabetic neuropathy, unspecified; E11.51 Type 2 diabetes mellitus with diabetic peripheral angiopathy without gangrene; I25.10 Atherosclerotic heart disease of native coronary artery without angina pectoris; E11.22 Type 2 diabetes mellitus with diabetic chronic kidney disease; I12.9 Hypertensive chronic kidney disease with stage 1 through stage 4 chronic kidney disease, or unspecified chronic kidney disease; N18.3 Chronic kidney disease, stage 3 (moderate); K21.9 Gastro-esophageal reflux disease without esophagitis; M19.90 Unspecified osteoarthritis, unspecified site; E11.69 Type 2 diabetes mellitus with other specified complication; M46.24 Osteomyelitis of vertebra, thoracic region; M86.8X7 Other osteomyelitis, ankle and foot; E11.42 Type 2 diabetes mellitus with diabetic polyneuropathy ==

== ENCOUNTER → 2017-09-30 | Outpatient (CLI) | payer OTHER | END | disposition home or self-care (01) | LOC: WOUNDCARE 04:07 | DX: E11.622 Type 2 diabetes mellitus with other skin ulcer (principal); L89.324 Pressure ulcer of left buttock, stage 4; L98.411 Non-pressure chronic ulcer of buttock limited to breakdown of skin; E11.40 Type 2 diabetes mellitus with diabetic neuropathy, unspecified; E11.51 Type 2 diabetes mellitus with diabetic peripheral angiopathy without gangrene; I25.10 Atherosclerotic heart disease of native coronary artery without angina pectoris; K21.9 Gastro-esophageal reflux disease without esophagitis; M19.90 Unspecified osteoarthritis, unspecified site; E11.42 Type 2 diabetes mellitus with diabetic polyneuropathy; E11.22 Type 2 diabetes mellitus with diabetic chronic kidney disease; I12.9 Hypertensive chronic kidney disease with stage 1 through stage 4 chronic kidney disease, or unspecified chronic kidney disease; N18.3 Chronic kidney disease, stage 3 (moderate); E11.69 Type 2 diabetes mellitus with other specified complication; M46.24 Osteomyelitis of vertebra, thoracic region; M86.8X7 Other osteomyelitis, ankle and foot ==

== ENCOUNTER → 2017-10-07 | Outpatient (CLI) | payer OTHER | END | disposition home or self-care (01) | LOC: WOUNDCARE 02:24 | DX: E11.622 Type 2 diabetes mellitus with other skin ulcer (principal); L98.411 Non-pressure chronic ulcer of buttock limited to breakdown of skin; L89.324 Pressure ulcer of left buttock, stage 4; E11.51 Type 2 diabetes mellitus with diabetic peripheral angiopathy without gangrene; I25.10 Atherosclerotic heart disease of native coronary artery without angina pectoris; K21.9 Gastro-esophageal reflux disease without esophagitis; M19.90 Unspecified osteoarthritis, unspecified site; E11.22 Type 2 diabetes mellitus with diabetic chronic kidney disease; I12.9 Hypertensive chronic kidney disease with stage 1 through stage 4 chronic kidney disease, or unspecified chronic kidney disease; N18.3 Chronic kidney disease, stage 3 (moderate); E11.42 Type 2 diabetes mellitus with diabetic polyneuropathy; E11.69 Type 2 diabetes mellitus with other specified complication; M46.24 Osteomyelitis of vertebra, thoracic region; M86.8X7 Other osteomyelitis, ankle and foot ==

== ENCOUNTER → 2017-10-14 | Outpatient (CLI) | payer OTHER | END | disposition home or self-care (01) | LOC: WOUNDCARE 05:00 | DX: E11.622 Type 2 diabetes mellitus with other skin ulcer (principal); L89.324 Pressure ulcer of left buttock, stage 4; L98.411 Non-pressure chronic ulcer of buttock limited to breakdown of skin; E11.22 Type 2 diabetes mellitus with diabetic chronic kidney disease; I12.9 Hypertensive chronic kidney disease with stage 1 through stage 4 chronic kidney disease, or unspecified chronic kidney disease; N18.3 Chronic kidney disease, stage 3 (moderate); M19.90 Unspecified osteoarthritis, unspecified site; E11.69 Type 2 diabetes mellitus with other specified complication; M86.8X7 Other osteomyelitis, ankle and foot; M46.20 Osteomyelitis of vertebra, site unspecified; E11.40 Type 2 diabetes mellitus with diabetic neuropathy, unspecified; E11.51 Type 2 diabetes mellitus with diabetic peripheral angiopathy without gangrene; I25.10 Atherosclerotic heart disease of native coronary artery without angina pectoris; K21.9 Gastro-esophageal reflux disease without esophagitis ==

== ENCOUNTER 2017-10-15 10:15 | Emergency (ER) | payer OTHER ==
[~2017-10-15] VITALS: Ht 175.2 cm; Wt 74.4 kg
[2017-10-15 10:45] LABS: BASO % 0.6 % (0.0-1.0); EOS # 0.3 10*3/uL (0.0-0.4); EOS % 4.1 % (1.0-4.0); HEMATOCRIT 28.2 % (37.0-47.0); HEMOGLOBIN 8.6 g/dl (12.0-16.0); LYMPH # 1.6 10*3/uL (1.3-4.4); LYMPH % 23.4 % (27.0-41.0); MEAN CORPUSCULAR HGB 28.7 pg (27.0-31.0); MEAN CORPUSCULAR HGB CONC 30.5 g/dl (33.0-37.0); MEAN PLATELET VOLUME 9.7 fl (9.6-12.3); MONO # 0.3 10*3/uL (0.1-1.0); MONO % 4.9 % (3.0-9.0); NEUT # 4.7 10*3/uL (2.3-7.9); NEUT % 66.9 % (47.0-73.0); PLATELET COUNT AUTOMATED 193 10*3/uL (130-400); RED CELL DISTRI WIDTH 15.1 % (0-14.5)
[2017-10-15 10:54] LABS: ACT PARTIAL THROMBO TIME 27.6 SECONDS (20.8-31.5)
[2017-10-15 11:01] LABS: ALBUMIN 3.4 gm/dl (3.1-4.5); BUN 18 mg/dl (7-24); CHLORIDE 102 mmol/L (98-107); CREATININE 1.09 mg/dL (0.55-1.02); POTASSIUM 4.1 mmol/L (3.5-5.1); SGOT/AST 8 IU/L (3-35); SGPT/ALT 13 U/L (12-78); SODIUM 138 mmol/L (136-145); TOTAL PROTEIN 8.2 gm/dL (6.4-8.2)
[2017-10-15 11:02] LABS: ALKALINE PHOSPHATASE 153 U/L (45-117); TROPONIN I < 0.015 ng/ml (<0.045)
[2017-10-15 11:39] LABS: BILIRUBIN NEGATIVE (NEGATIVE); BLOOD 2+ (NEGATIVE); CLARITY CLOUDY (CLEAR); COLOR YELLOW (YELLOW); GLUCOSE NEGATIVE (NEGATIVE); KETONE NEGATIVE (NEGATIVE); LEUKO ESTERASE 3+ (NEGATIVE); NITRITE POSITIVE (NEGATIVE); SPECIFIC GRAVITY <= 1.005 (1.005-1.030); UROBILINOGEN 0.2 E.U./dl (0.2-1.0)
[2017-10-15 11:48] LABS: BACTERIA 2+; WBC TNTC wbc/hpf (0-5)
[2017-10-15 16:39] VITALS: BP 110/66
== END 2017-10-15 17:30 | disposition short-term general hospital (02) ==
LOC: ED 10:15
PROVIDERS: Emergency Medicine
DX: T81.4XXA Infection following a procedure, initial encounter (principal); R22.2 Localized swelling, mass and lump, trunk; E11.22 Type 2 diabetes mellitus with diabetic chronic kidney disease; I12.9 Hypertensive chronic kidney disease with stage 1 through stage 4 chronic kidney disease, or unspecified chronic kidney disease; N18.3 Chronic kidney disease, stage 3 (moderate); I25.10 Atherosclerotic heart disease of native coronary artery without angina pectoris; M79.7 Fibromyalgia; E78.00 Pure hypercholesterolemia, unspecified; Z88.2 Allergy status to sulfonamides; Z88.1 Allergy status to other antibiotic agents; Z91.041 Radiographic dye allergy status; Z88.8 Allergy status to other drugs, medicaments and biological substances; Z79.4 Long term (current) use of insulin; Z79.82 Long term (current) use of aspirin; Z98.51 Tubal ligation status

== ENCOUNTER → 2017-11-04 | Outpatient (CLI) | payer OTHER ==
[~2017-11-04] MED LIST changes: +BENADRYL ALLERG25 M5 PO; +CYCLOBENZAPRIN7.5 M2 PO; +TEFLARO400 MG IV; +VITAMIN D-32000 UNIT PO
== END ==
LOC: WOUNDCARE 04:07
DX: E11.622 Type 2 diabetes mellitus with other skin ulcer (principal); L98.411 Non-pressure chronic ulcer of buttock limited to breakdown of skin; L89.324 Pressure ulcer of left buttock, stage 4; E11.40 Type 2 diabetes mellitus with diabetic neuropathy, unspecified; E11.51 Type 2 diabetes mellitus with diabetic peripheral angiopathy without gangrene; I25.10 Atherosclerotic heart disease of native coronary artery without angina pectoris; K21.9 Gastro-esophageal reflux disease without esophagitis; M19.90 Unspecified osteoarthritis, unspecified site; E11.42 Type 2 diabetes mellitus with diabetic polyneuropathy; E11.22 Type 2 diabetes mellitus with diabetic chronic kidney disease; I12.9 Hypertensive chronic kidney disease with stage 1 through stage 4 chronic kidney disease, or unspecified chronic kidney disease; N18.3 Chronic kidney disease, stage 3 (moderate); E11.69 Type 2 diabetes mellitus with other specified complication; M86.8X7 Other osteomyelitis, ankle and foot; M46.24 Osteomyelitis of vertebra, thoracic region

== ENCOUNTER → 2017-11-18 | Outpatient (CLI) | payer OTHER | END | disposition home or self-care (01) | LOC: WOUNDCARE 11:49 | DX: E11.622 Type 2 diabetes mellitus with other skin ulcer (principal); L89.324 Pressure ulcer of left buttock, stage 4; L98.411 Non-pressure chronic ulcer of buttock limited to breakdown of skin; S21.109D Unspecified open wound of unspecified front wall of thorax without penetration into thoracic cavity, subsequent encounter; E11.40 Type 2 diabetes mellitus with diabetic neuropathy, unspecified; E11.51 Type 2 diabetes mellitus with diabetic peripheral angiopathy without gangrene; E11.22 Type 2 diabetes mellitus with diabetic chronic kidney disease; I12.9 Hypertensive chronic kidney disease with stage 1 through stage 4 chronic kidney disease, or unspecified chronic kidney disease; N18.3 Chronic kidney disease, stage 3 (moderate); E11.69 Type 2 diabetes mellitus with other specified complication; M46.20 Osteomyelitis of vertebra, site unspecified; M86.8X7 Other osteomyelitis, ankle and foot; I25.10 Atherosclerotic heart disease of native coronary artery without angina pectoris; K21.9 Gastro-esophageal reflux disease without esophagitis; M19.90 Unspecified osteoarthritis, unspecified site; X58.XXXD Exposure to other specified factors, subsequent encounter ==

== ENCOUNTER 2017-12-01 16:43 | Inpatient (IN) | payer OTHER ==
[~2017-12-01] VITALS: Ht 175.2 cm; Wt 77.1 kg
[~2017-12-01 16:43] MED LIST changes: -BENADRYL ALLERG25 M5 PO; -CYCLOBENZAPRIN7.5 M2 PO; -TEFLARO400 MG IV; -VITAMIN D-32000 UNIT PO
[2017-12-01 16:50] VITALS: BP 112/41
[2017-12-01 17:57] LABS: BASO % 0.4 % (0.0-1.0); EOS # 0.5 10*3/uL (0.0-0.4); EOS % 10.1 % (1.0-4.0); HEMATOCRIT 28.6 % (37.0-47.0); HEMOGLOBIN 8.9 g/dl (12.0-16.0); LYMPH # 1.7 10*3/uL (1.3-4.4); LYMPH % 32.2 % (27.0-41.0); MEAN CELL VOLUME 97.9 fl (81.0-99.0); MEAN CORPUSCULAR HGB 30.5 pg (27.0-31.0); MEAN CORPUSCULAR HGB CONC 31.1 g/dl (33.0-37.0); MEAN PLATELET VOLUME 10.5 fl (9.6-12.3); MONO # 0.4 10*3/uL (0.1-1.0); MONO % 7.2 % (3.0-9.0); NEUT # 2.6 10*3/uL (2.3-7.9); NEUT % 49.9 % (47.0-73.0); PLATELET COUNT AUTOMATED 147 10*3/uL (130-400); RED BLOOD COUNT 2.92 10*6/uL (4.10-5.10); RED CELL DISTRI WIDTH 16.1 % (0-14.5); WHITE BLOOD COUNT 5.2 10*3/uL (4.8-10.8)
[2017-12-01 18:07] LABS: ACT PARTIAL THROMBO TIME 28.7 SECONDS (20.8-31.5)
[2017-12-01 18:12] LABS: CREATININE 1.59 mg/dL (0.55-1.02); POTASSIUM 5.2 mmol/L (3.5-5.1); TOTAL PROTEIN 7.6 gm/dL (6.4-8.2)
[2017-12-01] MEDS ORDERED: TEFLARO400 MG IV (18:46)
[2017-12-01 20:00] VITALS: BP 127/62
[2017-12-01 20:18] VITALS: BP 127/62
[2017-12-01] MEDS ORDERED: CYCLOBENZAPRIN7.5 M2 PO (20:38)
[2017-12-01] MEDS ORDERED: BENADRYL ALLERG25 M5 PO (20:39)
[2017-12-01 21:05] LABS: BILIRUBIN NEGATIVE (NEGATIVE); BLOOD NEGATIVE (NEGATIVE); CLARITY CLEAR (CLEAR); COLOR YELLOW (YELLOW); GLUCOSE NEGATIVE (NEGATIVE); KETONE NEGATIVE (NEGATIVE); LEUKO ESTERASE NEGATIVE (NEGATIVE); NITRITE NEGATIVE (NEGATIVE); UROBILINOGEN 0.2 E.U./dl (0.2-1.0)
[2017-12-01 21:22] LABS: BACTERIA TRACE; HYALINE CAST 0-2; WBC 0-2 wbc/hpf (0-5)
[2017-12-02] VITALS (8 sets, daily range): BP systolic 72–136; BP diastolic 40–64
[2017-12-02 07:07] LABS: BASO % 0.4 % (0.0-1.0); EOS # 0.4 10*3/uL (0.0-0.4); EOS % 8.2 % (1.0-4.0); HEMATOCRIT 27.7 % (37.0-47.0); HEMOGLOBIN 8.6 g/dl (12.0-16.0); LYMPH # 1.6 10*3/uL (1.3-4.4); LYMPH % 30.4 % (27.0-41.0); MEAN CELL VOLUME 98.2 fl (81.0-99.0); MEAN CORPUSCULAR HGB 30.5 pg (27.0-31.0); MEAN PLATELET VOLUME 10.6 fl (9.6-12.3); MONO # 0.4 10*3/uL (0.1-1.0); MONO % 7.5 % (3.0-9.0); NEUT # 2.8 10*3/uL (2.3-7.9); NEUT % 53.5 % (47.0-73.0); PLATELET COUNT AUTOMATED 128 10*3/uL (130-400); RED BLOOD COUNT 2.82 10*6/uL (4.10-5.10); RED CELL DISTRI WIDTH 15.9 % (0-14.5); WHITE BLOOD COUNT 5.2 10*3/uL (4.8-10.8)
[2017-12-02 07:27] LABS: ACT PARTIAL THROMBO TIME 28.9 SECONDS (20.8-31.5); ALBUMIN 2.8 gm/dl (3.1-4.5); ALKALINE PHOSPHATASE 519 U/L (45-117); BUN 17 mg/dl (7-24); CHLORIDE 104 mmol/L (98-107); CHOLESTEROL 138 mg/dL (<200); CREATININE 1.12 mg/dL (0.55-1.02); FREE T4 0.87 ng/dl (0.76-1.46); HDL CHOLESTEROL 52 mg/dl (40-60); LDL CHOLESTEROL 74 mg/dL (9-159); PHOSPHOROUS 4.4 mg/dL (2.5-4.9); SGOT/AST 69 IU/L (3-35); SGPT/ALT 116 U/L (12-78); SODIUM 138 mmol/L (136-145); TOTAL PROTEIN 7.3 gm/dL (6.4-8.2); TRIGLYCERIDES 62 mg/dl (<150); VLDL CHOLESTEROL 12 mg/dL (6-40)
[2017-12-02 08:11] LABS: VITAMIN D, 25-HYDROXY 18.1 ng/mL (30-100)
[2017-12-03] VITALS: BP 131/71
[2017-12-03 07:06] LABS: BASO % 0.7 % (0.0-1.0); EOS # 0.4 10*3/uL (0.0-0.4); EOS % 8.4 % (1.0-4.0); HEMATOCRIT 27.5 % (37.0-47.0); HEMOGLOBIN 8.4 g/dl (12.0-16.0); LYMPH # 1.5 10*3/uL (1.3-4.4); MEAN CELL VOLUME 99.6 fl (81.0-99.0); MEAN CORPUSCULAR HGB 30.4 pg (27.0-31.0); MEAN CORPUSCULAR HGB CONC 30.5 g/dl (33.0-37.0); MEAN PLATELET VOLUME 10.8 fl (9.6-12.3); MONO # 0.3 10*3/uL (0.1-1.0); MONO % 6.6 % (3.0-9.0); NEUT # 2.1 10*3/uL (2.3-7.9); NEUT % 50.1 % (47.0-73.0); PLATELET COUNT AUTOMATED 140 10*3/uL (130-400); RED BLOOD COUNT 2.76 10*6/uL (4.10-5.10); WHITE BLOOD COUNT 4.3 10*3/uL (4.8-10.8)
[2017-12-03 07:08] LABS: ALKALINE PHOSPHATASE 561 U/L (45-117); BUN 15 mg/dl (7-24); CHLORIDE 105 mmol/L (98-107); CREATININE 1.03 mg/dL (0.55-1.02); POTASSIUM 4.6 mmol/L (3.5-5.1); SGOT/AST 87 IU/L (3-35); SGPT/ALT 109 U/L (12-78); SODIUM 139 mmol/L (136-145); TOTAL PROTEIN 7.4 gm/dL (6.4-8.2)
[2017-12-03 07:57] VITALS: BP 106/68
[2017-12-03 08:00] VITALS: BP 106/68; BP 126/60
[2017-12-03] MEDS ORDERED: VITAMIN D-32000 UNIT PO (09:55)
== END 2017-12-03 13:41 | disposition home or self-care (01) | DRG 682 ==
LOC: ED 16:43 → EDHOLD 18:46 → 4E 18:46
PROVIDERS: Emergency Medicine; Family Medicine; Registered Nurse
DX: N17.0 Acute kidney failure with tubular necrosis (principal); E43 Unspecified severe protein-calorie malnutrition; L89.154 Pressure ulcer of sacral region, stage 4; E11.22 Type 2 diabetes mellitus with diabetic chronic kidney disease; L89.324 Pressure ulcer of left buttock, stage 4; M86.8X8 Other osteomyelitis, other site; E11.65 Type 2 diabetes mellitus with hyperglycemia; D64.9 Anemia, unspecified; R74.0 Nonspecific elevation of levels of transaminase and lactic acid dehydrogenase [LDH]; M79.7 Fibromyalgia; E78.00 Pure hypercholesterolemia, unspecified; M19.90 Unspecified osteoarthritis, unspecified site; I12.9 Hypertensive chronic kidney disease with stage 1 through stage 4 chronic kidney disease, or unspecified chronic kidney disease; E11.51 Type 2 diabetes mellitus with diabetic peripheral angiopathy without gangrene; E11.42 Type 2 diabetes mellitus with diabetic polyneuropathy; E11.69 Type 2 diabetes mellitus with other specified complication; I25.10 Atherosclerotic heart disease of native coronary artery without angina pectoris; T50.995A Adverse effect of other drugs, medicaments and biological substances, initial encounter; R74.8 Abnormal levels of other serum enzymes; N18.3 Chronic kidney disease, stage 3 (moderate); K21.9 Gastro-esophageal reflux disease without esophagitis; Z95.1 Presence of aortocoronary bypass graft; Z88.1 Allergy status to other antibiotic agents; Z88.0 Allergy status to penicillin; Z88.8 Allergy status to other drugs, medicaments and biological substances; Z91.041 Radiographic dye allergy status; Z79.4 Long term (current) use of insulin; Z79.899 Other long term (current) drug therapy; Z95.5 Presence of coronary angioplasty implant and graft; Z98.51 Tubal ligation status; Z82.49 Family history of ischemic heart disease and other diseases of the circulatory system; Z83.3 Family history of diabetes mellitus; Z80.8 Family history of malignant neoplasm of other organs or systems; Z82.3 Family history of stroke; Y92.89 Other specified places as the place of occurrence of the external cause; Z68.25 Body mass index [BMI] 25.0-25.9, adult

== ENCOUNTER → 2017-12-27 | Outpatient (CLI) | payer OTHER ==
[~2017-12-27] MED LIST changes: +BENADRYL ALLERG25 M5 PO; +CYCLOBENZAPRIN7.5 M2 PO; +TEFLARO400 MG IV; +VITAMIN D-32000 UNIT PO
== END | disposition home or self-care (01) ==
LOC: WOUNDCARE 04:13
DX: E11.622 Type 2 diabetes mellitus with other skin ulcer (principal); L89.324 Pressure ulcer of left buttock, stage 4; L98.411 Non-pressure chronic ulcer of buttock limited to breakdown of skin; E11.42 Type 2 diabetes mellitus with diabetic polyneuropathy; E11.51 Type 2 diabetes mellitus with diabetic peripheral angiopathy without gangrene; E11.22 Type 2 diabetes mellitus with diabetic chronic kidney disease; I12.9 Hypertensive chronic kidney disease with stage 1 through stage 4 chronic kidney disease, or unspecified chronic kidney disease; N18.3 Chronic kidney disease, stage 3 (moderate); E11.69 Type 2 diabetes mellitus with other specified complication; M86.8X7 Other osteomyelitis, ankle and foot; M86.8X8 Other osteomyelitis, other site; I25.10 Atherosclerotic heart disease of native coronary artery without angina pectoris; K21.9 Gastro-esophageal reflux disease without esophagitis; M19.90 Unspecified osteoarthritis, unspecified site; Z95.5 Presence of coronary angioplasty implant and graft; Z79.4 Long term (current) use of insulin

== ENCOUNTER → 2018-01-03 | Outpatient (CLI) | payer OTHER | END | disposition home or self-care (01) | LOC: WOUNDCARE 03:53 | DX: E11.622 Type 2 diabetes mellitus with other skin ulcer (principal); L89.324 Pressure ulcer of left buttock, stage 4; L98.411 Non-pressure chronic ulcer of buttock limited to breakdown of skin; E11.51 Type 2 diabetes mellitus with diabetic peripheral angiopathy without gangrene; I25.10 Atherosclerotic heart disease of native coronary artery without angina pectoris; E11.22 Type 2 diabetes mellitus with diabetic chronic kidney disease; I12.9 Hypertensive chronic kidney disease with stage 1 through stage 4 chronic kidney disease, or unspecified chronic kidney disease; N18.3 Chronic kidney disease, stage 3 (moderate); K21.9 Gastro-esophageal reflux disease without esophagitis; M19.90 Unspecified osteoarthritis, unspecified site; E11.69 Type 2 diabetes mellitus with other specified complication; M86.8X7 Other osteomyelitis, ankle and foot; M86.8X8 Other osteomyelitis, other site; E11.42 Type 2 diabetes mellitus with diabetic polyneuropathy ==

== ENCOUNTER → 2018-01-17 | Outpatient (CLI) | payer OTHER | END | disposition home or self-care (01) | LOC: WOUNDCARE 15:12 | DX: E11.622 Type 2 diabetes mellitus with other skin ulcer (principal); L89.324 Pressure ulcer of left buttock, stage 4; L98.411 Non-pressure chronic ulcer of buttock limited to breakdown of skin; E11.51 Type 2 diabetes mellitus with diabetic peripheral angiopathy without gangrene; E11.69 Type 2 diabetes mellitus with other specified complication; M86.8X7 Other osteomyelitis, ankle and foot; M86.8X8 Other osteomyelitis, other site; I25.10 Atherosclerotic heart disease of native coronary artery without angina pectoris; E11.22 Type 2 diabetes mellitus with diabetic chronic kidney disease; I13.10 Hypertensive heart and chronic kidney disease without heart failure, with stage 1 through stage 4 chronic kidney disease, or unspecified chronic kidney disease; N18.3 Chronic kidney disease, stage 3 (moderate); K21.9 Gastro-esophageal reflux disease without esophagitis; M19.90 Unspecified osteoarthritis, unspecified site; E11.42 Type 2 diabetes mellitus with diabetic polyneuropathy ==

== ENCOUNTER → 2018-01-24 | Outpatient (CLI) | payer OTHER | END | disposition home or self-care (01) | LOC: WOUNDCARE 04:33 | DX: E11.622 Type 2 diabetes mellitus with other skin ulcer (principal); L89.324 Pressure ulcer of left buttock, stage 4; L98.411 Non-pressure chronic ulcer of buttock limited to breakdown of skin; E11.40 Type 2 diabetes mellitus with diabetic neuropathy, unspecified; E11.51 Type 2 diabetes mellitus with diabetic peripheral angiopathy without gangrene; I25.10 Atherosclerotic heart disease of native coronary artery without angina pectoris; E11.22 Type 2 diabetes mellitus with diabetic chronic kidney disease; I12.9 Hypertensive chronic kidney disease with stage 1 through stage 4 chronic kidney disease, or unspecified chronic kidney disease; N18.3 Chronic kidney disease, stage 3 (moderate); K21.9 Gastro-esophageal reflux disease without esophagitis; M19.90 Unspecified osteoarthritis, unspecified site; E11.69 Type 2 diabetes mellitus with other specified complication; M86.8X7 Other osteomyelitis, ankle and foot; M86.8X8 Other osteomyelitis, other site; E11.42 Type 2 diabetes mellitus with diabetic polyneuropathy ==

== ENCOUNTER → 2018-01-31 | Outpatient (CLI) | payer OTHER | END | disposition home or self-care (01) | LOC: WOUNDCARE 01:56 | DX: E11.622 Type 2 diabetes mellitus with other skin ulcer (principal); L89.324 Pressure ulcer of left buttock, stage 4; L98.411 Non-pressure chronic ulcer of buttock limited to breakdown of skin; E11.51 Type 2 diabetes mellitus with diabetic peripheral angiopathy without gangrene; E11.40 Type 2 diabetes mellitus with diabetic neuropathy, unspecified; E11.69 Type 2 diabetes mellitus with other specified complication; M86.8X7 Other osteomyelitis, ankle and foot; M86.8X8 Other osteomyelitis, other site; E11.22 Type 2 diabetes mellitus with diabetic chronic kidney disease; I12.9 Hypertensive chronic kidney disease with stage 1 through stage 4 chronic kidney disease, or unspecified chronic kidney disease; N18.3 Chronic kidney disease, stage 3 (moderate); K21.9 Gastro-esophageal reflux disease without esophagitis; I25.10 Atherosclerotic heart disease of native coronary artery without angina pectoris; M19.90 Unspecified osteoarthritis, unspecified site ==

== ENCOUNTER 2018-11-02 17:43 | Inpatient (IN) | payer SELFPAY ==
[~2018-11-02] VITALS: Ht 175.2 cm; Wt 94.5 kg
--- NOTE | ~2018-11-02 | PR ---
[place], [place] PROGRESS NOTE NAME: [facility]URGOS [id number] UNIT #: [id number] ROOM: 516 DOCTOR: KIRT DONAHUE MD BIRTHDATE: [birth year] DOS: 11/04/2018 SUBJECTIVE: The patient examined. I had a long discussion with the patient, Dr. Gupta saw the patient for me yesterday and did a stress test. She had a mild inferolateral ischemia. He called it low risk with preserved systolic function, apparently which I did not know patient had a heart catheterization done last year at [facility], grafts were patent, complicated by the right groin abscess. The patient had multiple problems, had Lucia-Niraj syndrome post open heart surgery. Right now, her pain is more in the right upper quadrant. She denies any chest discomfort. PHYSICAL EXAMINATION: VITAL SIGNS: Blood pressure is stable, blood pressure is 110/70. NECK: Supple, no JVD. LUNGS: Diminished breath sounds. HEART: Sounds are regular. NEUROLOGIC: Stable. LABORATORY DATA: Shows hemoglobin 10.9, hematocrit 34. Electrolytes are within normal limits except for creatinine is 1.5. INR is normal. IMPRESSION AND PLAN: The patient with known coronary artery, hypertension, hyperlipidemia with more of an atypical right-sided chest pain with mildly abnormal stress test, which was reported as low risk with preserved systolic function. I would maximize the medicines first because of the problems that she had, add isosorbide to the current regimen, very small dose of beta blockers like metoprolol XL 25 mg daily as needed and monitor the pressure, keep the systolic above 100 and increase activity. I will follow her up as an outpatient. If she continues to be symptomatic, we will do the repeat cardiac catheterization. Discussed with the patient in detail. KIRT DONAHUE MD CM:PNSESAR 1106 KIRT DONAHUE MD 11/11/18 0820 interface
--- NOTE | ~2018-11-02 | CON ---
[place], [place] REPORT OF CONSULTATION NAME: GUILLERMO BURGOS UNIT #: [id number] ROOM: 516 DOCTOR: KIAH MCINTOSH MD BIRTHDATE: [birth year] DOS: 11/03/2018 HISTORY OF PRESENT ILLNESS: This is a 53-year-old -Congol[place] woman with a history of coronary artery disease. She had a 3-vessel coronary artery bypass graft surgery in 2017 in [facility]. 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 She had a sternal wound infection, which eventually healed, but left a scar. She has never had a stroke, heart failure, any rhythm disorder of the heart or cancer or COPD. She does not smoke nor does she drink alcoholic beverages. HOME MEDICATIONS: Include bumetanide, aspirin 81 mg daily, clopidogrel 75 mg daily, ferrous sulfate 325 mg daily, furosemide 40 mg q.a.m., cholecalciferol 2000 units daily, cyclobenzaprine 10 mg t.i.d., Benadryl 25 mg 2 tablets q. 4 hours p.r.n., Lexapro 10 mg daily, gabapentin 800 mg t.i.d., oxycodone 10 mg q. 6 hours p.r.n., Protonix 40 mg daily, ranitidine 150 mg b.i.d., temazepam 50 mg at bedtime p.r.n. She is on insulin aspart and glargine. PHYSICAL EXAMINATION: GENERAL: This reveals a patient who is mildly overweight. She is very pleasant, alert, oriented. Complexion is fine. Temperature is normal. There is no thyromegaly or finger clubbing. She is not cyanotic or jaundiced. VITAL SIGNS: Pulse is 72 and regular, blood pressure 104/76. NECK: JVP is normal. AJR is negative. There is no carotid bruit. HEART: There is no cardiomegaly, no murmurs are present. EXTREMITIES: Good pedal pulses and she has mild edema, but it is nonpitting probably because of skin condition. RESPIRATORY: She is not tachypneic to auscultation with good breath sounds bilaterally. No rub or adventitious sound. Her right lower lateral rib region is fairly tender and no epigastric tenderness present. ABDOMEN: Nontender. Bowel sounds are normal. DIAGNOSTIC STUDIES: ECG showed normal sinus rhythm with left atrial abnormality, low voltage in precordial leads. No serial changes on ECG. Troponin I level was less than 0.015 x 2. IMPRESSION: This patient with known coronary artery disease, status post coronary artery bypass graft, has acute retrosternal chest pain. She is ruled out for acute myocardial infarction. She tells me that she has some retrosternal chest discomfort with moderate physical activity. Therefore, a Lexiscan Cardiolite study was scheduled, which is very appropriate and will be performed. I thank you on behalf of Dr. Donahue for this consult. [place], [place] REPORT OF CONSULTATION NAME: GUILLERMO BURGOS UNIT #: [id number] ROOM: 516 DOCTOR: KIAH MCINTOSH MD BIRTHDATE: [birth year] KIAH MCINTOSH MD CM:CONSTR:REPORT OF CONSULTATION 1046 11/04/18 0556 interface KIRT DONAHUE MD
--- NOTE | ~2018-11-02 | EKG ---
[place], [place] ELECTROCARDIOGRAM REPORT NAME: GUILLERMO BURGOS UNIT #: [id number] ROOM: 516 DOCTOR: THERESA DRAFT REPORT BIRTHDATE: [birth year] [facility] Test Date: 2018-11-02 Test Time: 21:33:07 Pat Name: GUILLERMO BURGOS Department: Room: 516 Gender: F Operations Inspector: : 1965 Requested By: NAWAF ZAMORA Order Number: [id number] Reading MD: Jose Lobo MD Measurements Intervals [place] Rate: 73 P: 22 [place]: 153 QRS: 0 QRSD: 98 T: 64 QT: 377 QTc: 416 Interpretive Statements Sinus rhythm Probable left atrial enlargement RSR' in V1 or V2, probably normal variant Compared to ECG 10/13/2018 13:25:59 Right ventricular hypertrophy no longer present Electronically Signed On 11-03-2018 9:52:30 PDT by Jose Lobo MD CM:EKGRPT:ELECTROCARDIOGRAM REPORT [id number] NAWAF CARDENAS DRAFT REPORT NAWAF ZAMORA M.D.
--- NOTE | ~2018-11-02 | ST ---
[place], [place] EXERCISE STRESS TEST REPORT NAME: GUILLERMO BURGOS UNIT #: [id number] ROOM: 516 DOCTOR: KIAH MCINTOSH MD BIRTHDATE: [birth year] DOS: 11/03/2018 [facility] CARDIOLITE STUDY REASON FOR STUDY: The patient with coronary artery disease, status post coronary artery bypass graft and presented with retrosternal chest pain and ruled out for acute myocardial infarction. PROCEDURE: Regadenoson was infused over a period of 10 seconds and 40 seconds later, technetium 99 sestamibi was injected intravenously. She came a little short of breath, but had no worsening of chest pain. Resting ECG demonstrated normal sinus rhythm at 81 beats per minute and low voltage in limb leads and left atrial enlargement. Following infusion of regadenoson, no changes were identified and there were no dysrhythmias. CONCLUSION: 1. The patient tolerated regadenoson infusion satisfactorily. 2. No clinical or electrocardiographic evidence of ischemia. 3. Nuclear report will be rendered separately. KIAH MCINTOSH MD CM:STRESS:EXERCISE STRESS TEST REPORT [id number] 1605 KIRT MCINTOSH MD
--- NOTE | ~2018-11-02 | EKG ---
[place], [place] ELECTROCARDIOGRAM REPORT NAME: GUILLERMO BURGOS UNIT #: [id number] ROOM: 516 DOCTOR: THERESA DRAFT REPORT BIRTHDATE: [birth year] [facility] Test Date: 2018-11-02 Test Time: 23:39:08 Pat Name: GUILLERMO BURGOS Department: Room: 516 Gender: F Ward Supervisor: LEONEL : 1965 Requested By: NAWAF ZAMORA Order Number: [id number] Reading MD: Jose Lobo MD Measurements Intervals [place] Rate: 70 P: 55 [place]: 145 QRS: 2 QRSD: 90 T: 67 QT: 416 QTc: 449 Interpretive Statements Sinus rhythm Probable left atrial enlargement RSR' in V1 or V2, probably normal variant Compared to ECG 10/13/2018 13:25:59 Right ventricular hypertrophy no longer present Electronically Signed On 11-03-2018 9:52:36 PDT by Jose Lobo MD CM:EKGRPT:ELECTROCARDIOGRAM REPORT [id number] NAWAF CARDENAS DRAFT REPORT NAWAF ZAMORA M.D.
--- NOTE | ~2018-11-02 | EKG ---
[place], [place] ELECTROCARDIOGRAM REPORT NAME: GUILLERMO BURGOS UNIT #: [id number] ROOM: 516 DOCTOR: THERESA DRAFT REPORT BIRTHDATE: [birth year] [facility] Test Date: 2018-11-02 Test Time: 17:46:54 Pat Name: GUILLERMO BURGOS Department: Room: 516 Gender: F Rn Discharge: : 1965 Requested By: NAWAF ZAMORA Order Number: [id number] Reading MD: Jose Lobo MD Measurements Intervals [employer] Rate: 84 P: 136 [place]: 130 QRS: -26 QRSD: 94 T: 150 QT: 391 QTc: 463 Interpretive Statements Sinus or ectopic atrial rhythm Probable left atrial enlargement Inferior infarct, old Lateral leads are also involved Compared to ECG 10/13/2018 13:25:59 Ectopic atrial rhythm now present Myocardial infarct finding now present Sinus rhythm no longer present Right ventricular hypertrophy no longer present Electronically Signed On 11-03-2018 9:52:11 PDT by Jose Lobo MD CM:EKGRPT:ELECTROCARDIOGRAM REPORT [id number] NAWAF CARDENAS DRAFT REPORT NAWAF ZAMORA M.D.
[~2018-11-02 17:43] MED LIST changes: +AZITHROMYCIN500 M2 PO; +Humalog SQ; +LANTUS SOL100 UNIT/1 SC; +NOVOLOG FL100 UNIT/2 SQ; +PANTOPRAZOLE SO40 MG PO
[2018-11-02 17:50] VITALS: BP 92/46
[2018-11-02 18:01] LABS: BASO % 0.4 % (0.0-1.0); EOS # 0.4 10*3/uL (0.0-0.4); EOS % 5.8 % (1.0-4.0); HEMATOCRIT 32.9 % (37.0-47.0); HEMOGLOBIN 10.6 g/dl (12.0-16.0); LYMPH # 2.3 10*3/uL (1.3-4.4); LYMPH % 30.3 % (27.0-41.0); MEAN CELL VOLUME 99.4 fl (81.0-99.0); MEAN CORPUSCULAR HGB CONC 32.2 g/dl (33.0-37.0); MEAN PLATELET VOLUME 9.7 fl (9.6-12.3); MONO # 0.5 10*3/uL (0.1-1.0); MONO % 5.9 % (3.0-9.0); NEUT # 4.4 10*3/uL (2.3-7.9); NEUT % 57.3 % (47.0-73.0); PLATELET COUNT AUTOMATED 183 10*3/uL (130-400); RED BLOOD COUNT 3.31 10*6/uL (4.10-5.10); RED CELL DISTRI WIDTH 13.1 % (0-14.5); WHITE BLOOD COUNT 7.6 10*3/uL (4.8-10.8)
[2018-11-02 18:12] LABS: ACT PARTIAL THROMBO TIME 27.4 SECONDS (20.0-32.1); INTERNATIONAL NORM RATIO 0.9 (2.0-3.5)
[2018-11-02 18:14] VITALS: BP 98/46
[2018-11-02 18:16] LABS: ALBUMIN 3.6 gm/dl (3.1-4.5); ALKALINE PHOSPHATASE 201 U/L (45-117); BUN 25 mg/dl (7-24); CHLORIDE 99 mmol/L (98-107); CREATININE 1.79 mg/dL (0.55-1.02); POTASSIUM 4.7 mmol/L (3.5-5.1); SGOT/AST 28 IU/L (3-35); SGPT/ALT 35 U/L (12-78); SODIUM 134 mmol/L (136-145); TOTAL PROTEIN 8.1 gm/dL (6.4-8.2)
[2018-11-02 18:17] LABS: TROPONIN I < 0.015 ng/ml (<0.045)
[2018-11-02 19:27] VITALS: BP 101/56
[2018-11-02 19:27] LABS: BILIRUBIN NEGATIVE (NEGATIVE); BLOOD NEGATIVE (NEGATIVE); CLARITY CLEAR (CLEAR); COLOR YELLOW (YELLOW); GLUCOSE TRACE (NEGATIVE); KETONE NEGATIVE (NEGATIVE); LEUKO ESTERASE NEGATIVE (NEGATIVE); NITRITE NEGATIVE (NEGATIVE); PH 5.5 (5.0-9.0); SPECIFIC GRAVITY >= 1.030 (1.005-1.030); UROBILINOGEN 0.2 E.U./dl (0.2-1.0)
[2018-11-02 19:35] LABS: BACTERIA 2+; CALCIUM OXALATE CRYSTALS TRACE; RBC 0-2 rbc/hpf (0-2)
[2018-11-02 21:29] VITALS: BP 94/54
--- NOTE | 2018-11-02 21:29 | NUR ---
A 53, admitted to 5E, under the services of EILEEN Mariano DO with a diagnosis of CHEST PAIN. Chief complaint is CHEST PAIN. Patient arrived via stretcher from ER. Monitor applied. Initial assessment completed. Vital signs taken and recorded. EILEEN MARIANO DO notified of admission to the unit. Orders received. See assessment for past medical history, medications and allergies. Patient and/or family oriented to unit 5E. visitation policy reviewed. Clothing/patient valuable form completed. KARMEN MELARA A
--- NOTE | 2018-11-02 22:00 | NUR ---
AWARE OF MED REC BEING UP TO DATE VIA LIST PROVIDED BY PATIENT. ALSO REQUESTING WOUND CARE ORDERS. HE WOULD LIKE WOUND CARE NURSE RECOMMENDATIONS.
[2018-11-02] MEDS ORDERED: RESTORIL15 MG PO (22:07)
[2018-11-02] MEDS ORDERED: LASIX40 MG PO (22:08)
[2018-11-02] MEDS ORDERED: LEXAPRO10 MG PO (22:10)
[2018-11-02] MEDS ORDERED: CYCLOBENZAPRINE10 MG PO (22:13)
[2018-11-02] MEDS ORDERED: LANTUS SOL100 UNIT/1 SQ (22:22)
[2018-11-03] VITALS: BP 111/64
[2018-11-03 06:23] LABS: BASO % 0.4 % (0.0-1.0); EOS # 0.4 10*3/uL (0.0-0.4); EOS % 6.6 % (1.0-4.0); HEMOGLOBIN 10.9 g/dl (12.0-16.0); LYMPH # 1.8 10*3/uL (1.3-4.4); LYMPH % 33.2 % (27.0-41.0); MEAN CELL VOLUME 99.1 fl (81.0-99.0); MEAN CORPUSCULAR HGB 31.8 pg (27.0-31.0); MEAN CORPUSCULAR HGB CONC 32.1 g/dl (33.0-37.0); MEAN PLATELET VOLUME 9.7 fl (9.6-12.3); MONO # 0.3 10*3/uL (0.1-1.0); MONO % 6.5 % (3.0-9.0); NEUT # 2.8 10*3/uL (2.3-7.9); NEUT % 52.9 % (47.0-73.0); PLATELET COUNT AUTOMATED 172 10*3/uL (130-400); RED BLOOD COUNT 3.43 10*6/uL (4.10-5.10); RED CELL DISTRI WIDTH 12.9 % (0-14.5); WHITE BLOOD COUNT 5.3 10*3/uL (4.8-10.8)
[2018-11-03 06:37] LABS: CREATININE 1.53 mg/dL (0.55-1.02); POTASSIUM 4.3 mmol/L (3.5-5.1)
[2018-11-03 06:41] LABS: PHOSPHOROUS 4.5 mg/dL (2.5-4.9)
[2018-11-03 06:48] LABS: THYROID STIM HORMONE (HS) 1.2 uIU/ml (0.358-4.75)
--- NOTE | 2018-11-03 07:20 | NUR ---
MESSAGE LEFT WITH ANSWER SERVICE, AWAITING CALL BACK.
--- NOTE | 2018-11-03 07:26 | NUR ---
SPOKE WITH DR. DONAHUE REGARDING CONSULT. INFORMED HIM THAT STRESS WAS SCHEDULED THIS MORNING, HR IS UNABLE TO DO IT THIS MORNING. INSTRUCTED TO CALL DR. MCINTOSH AND SEE IF HE COULD DO IT. CALL PLACED TO DR. MCINTOSH IN REQUEST TO DR. DONAHUE, HE STATED HE WILL BE HERE AROUND 1000 AM TO DO STRESS TEST.
[2018-11-03 08:35] LABS: VITAMIN D, 25-HYDROXY 20.6 ng/mL (30-100)
--- NOTE | 2018-11-03 09:00 | NUR ---
GUILLERMO BURGOS [id number] Please refer to the physician's history and physical for past medical history, comorbid conditions, and allergies. Diagnosis: CHEST PAIN Jacob Score: 22,LOW OR NO RISK WOUND DESCRIPTIONS: Wound Number: 1 Location of the wound: COCCYX Type of wound: STAGE 4 Thickness: Full Size: 1.5cm X 0.9cm X 0.5cm Tunneling: NONE Undermining: NONE Sinus Tract: NONE Presence of Exudate: Serous Amount: Light Color: Red Odor: None Periwound Skin Appearance: Macerated Wound edges: APPROXIMATED Pain (associated with wound): DENIED AT TIME OF ASSESSMENT How does patient state this happened? PATIENT STATES THIS WOUND HAS BEEN THERE SINCE FEBRUARY 2017. RED RASH NOTED TO SKIN. 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 Surface the patient is resting on: Isoflex SKIN PREVENTION RECOMMENDATION: 1. Pressure redistribution support surface as appropriate 2. Elevate heels 3. Remove boots/TEDS every shift and reapply 4. Head of bed 30 degrees as tolerated 5. Assess nutrition and hydration 6. Manage moisture 7. Avoid the use of containment devices while in bed 8. Use absorptive products on surfaces limit layers of linens on bed 9. Turn and reposition every 1-2 hours in bed and every 1 hour in chair as tolerated 10. Weight shifts every 15 minutes while up in chair 11. Offloading with pillows or device to keep heels elevated off bed 12. Monitor skin at least every shift 13. Inspect under medical devices twice a day WOUND TREATMENT RECOMMENDATIONS: DRESSING CHANGE TO COCCYX WOUND: CLEANSE WITH NSS APPLY SUREPREP ALLOW TO DRY AND APPLY A WET TO DRY DRESSING DAILY. NYAMYC POWDER 1,000 UNITS TWICE A DAY TO AFFECTED AREAS. WHEEL CHAIR CUSHION WHEN OUT OF BED.
--- NOTE | 2018-11-03 09:43 | NUR ---
Dr. Harris notified of wound care recommendations.
--- NOTE | 2018-11-03 10:40 | NUR ---
INFORMED SIGNED CONSENT OBTAINED FOR LEXISCAN STRESS TEST WITH DR MCINTOSH. RESTING EKG NSR HR 81 BP 104/62. PULSE OX 90% LUNGS CLEAR. PT COMPLETED ONE MINUTE OF A LEXISCAN PROTOCOL WITH PT RECEIVING LEXISCAN 0.4MG IV OVER 10 SEC[address] NO [address]RYTHMIAS OR ST CHANGES NOTED. LAST RECOVERY HR OF 86 BP 98/58. PT IN STABLE CONDITION, AWAITING NUCLEAR IMAGES.
--- NOTE | 2018-11-03 11:46 | NUR ---
PT RETURNED FORM STRESS TEST WITH C/O RIGHT SIDED ABDOMINAL PAIN. PT RATES PAIN 8/10. MEDICATED WITH MORPHINE.
[2018-11-03 14:00] VITALS: BP 122/60
--- NOTE | 2018-11-03 14:10 | NUR ---
PT MEDICATED WITH PRN OXYCODONE FOR C/O RIGHT SIDED ABDOMINAL PAIN. WILL REACCESS.
--- NOTE | 2018-11-03 14:14 | NUR ---
Adhesive Bonding Machine Operator in to talk to patient. Patient states lives at HOME with . There are 2 steps in the home. Physician: ELTON MIKE Pharmacy: [facility] health services: NONE Patient's level of ADLs: MODERATE ASSIST Patient has working utilities: YES DME: [facility] Follow-up physician's appointment after d/c: WILL BE MADE BY HOSPITALIST NURSE DIRECTOR ON DISCHARGE Does patient want to access PORTAL?: NO Discharge plan PT STATES SHE LIVES AT HOME WITH HER . HER PLANS ARE TO RETURN HOME ON DISCHARGE. STATES SHE WILL HAVE NO NEW NEEDS. WILL CONTINUE TO FOLLOW. WILL HAVE A RIDE HOME PER HER. . MATTHEW CANSECO
[2018-11-03 16:00] VITALS: BP 118/65
--- NOTE | 2018-11-03 17:30 | NUR ---
PT MEDICATED WITH PRN MORPHINE FOR C/O RIGHT SIDED ABDOMINAL PAIN. PT RATESPAIN 12/06. WILL REACCESS.
--- NOTE | 2018-11-03 17:47 | NUR ---
PRN MORPHINE EFFECTIVE PER PT.
--- NOTE | 2018-11-03 19:30 | NUR ---
WHILE OBTAINING VITALS, PATIENT REPORTS TO PA THAT SHE WOULD LIKE "SOMETHING FOR PAIN WHEN IT'S DUE." PATIENT RESTING IN RECLINER. NO ACUTE DISTRESS NOTED
--- NOTE | 2018-11-03 19:57 | NUR ---
24 HR chart check completed.
[2018-11-03 20:00] VITALS: BP 118/65
--- NOTE | 2018-11-03 20:00 | NUR ---
SITTING IN RECLINER WATCHING TV. RESPIRATIONS EASY. LUNGS DIMINISHED, CLEAR. PULSE OX 98% RA. +1 PITTING BLE EDEMA. OFFERED AND EDUCATED REGARDING TEDS, DECLINED. CALL LIGHT WITHIN REACH.
--- NOTE | 2018-11-03 20:47 | NUR ---
REQUESTED AND RECEIVED OXYCODONE PER PRN ORDER FOR COMPLAINTS OF RIGHT BREAST PAIN RADIATING INTO STERNUM RATING AN 8. CALL LIGHT WITHIN REACH. WILL MONITOR FOR EFFECTIVENESS
--- NOTE | 2018-11-03 22:00 | NUR ---
STATES EARLIER MEDS HELPING WITH PAIN. CALL LIGHT WITHIN REACH. NO FURTHER VOICED COMPLAINTS
[2018-11-04] VITALS: BP 113/63
--- NOTE | 2018-11-04 00:13 | NUR ---
REMAINS IN RECLINER WATCHING TV. RESPIRATIONS EASY. VSS. REQUESTED AND RECEIVED MORPHINE IV PER PRN ORDER FOR COMPLAINTS OF RIGHT BREAST PAIN RADIATING TO STERNUM RATING A 7. PATIENT JOKING WITH RN DURING COMPLAINT. CALL LIGHT WITHIN REACH. WILL MONITOR FOR EFFECTIVENESS
--- NOTE | 2018-11-04 01:00 | NUR ---
MEDS APPEAR EFFECTIVE. SLEEPING. RESPIRATIONS EASY. CALL LIGHT WITHIN REACH.
--- NOTE | 2018-11-04 03:53 | NUR ---
AWAKENS, CALLS OUT FOR ASSIST TO BATHROOM. ASSISTED TO BATHROOM AND RETURNED TO RECLINER. C/O PAIN TO RIGHT BREAST RADIATING INTO STERNUM RATING A 10. MEDICATED WITH OXYCODONE PER PRN ORDER. CALL LIGHT WITHIN REACH. WILL MONITOR FOR EFFECTIVENESS
--- NOTE | 2018-11-04 04:04 | NUR ---
Recommend follow up for wound care in outpatient setting patient refused at this time due to not having medical insurance.
--- NOTE | 2018-11-04 05:00 | NUR ---
EARLIER MEDS APPEAR EFFECTIVE. SLEEPING IN RECLINER WITH NO DISTRESS NOTED. RESPIRATIONS EASY. CALL LIGHT WITHIN REACH.
--- NOTE | 2018-11-04 06:50 | NUR ---
DR DONAHUE HERE TO SEE PATIENT AND DISCUSS PLAN OF CARE
--- NOTE | 2018-11-04 07:54 | NUR ---
Nursing screen received and chart review completed. Patient independent prior to admission at home with . No OT indicated at this time. If a decline in ADLs then refer to OT. Thank you. Carey Appiah OTR/L
[2018-11-04 08:00] VITALS: BP 130/60
--- NOTE | 2018-11-04 08:40 | NUR ---
C/O PAIN TO RIGHT SIDE OF 01/06. REQUESTED MS GIVEN AT THIS TIME. WILL CONT TO MONITOR.
--- NOTE | 2018-11-04 09:02 | NUR ---
ANSWERING SERVICE WAS NOTIFIED OF DR. MIRANDA CONSULT. RESPONSE OF NOTIFICATION WAS LEFT MESSAGE. GUILLERMO OSHEA
--- NOTE | 2018-11-04 09:40 | NUR ---
PT SLEEPING MS EFF.
--- NOTE | 2018-11-04 09:56 | NUR ---
Dr. Tyler notified of wound care recommendations.
[2018-11-04 12:00] VITALS: BP 94/56; BP 98/60
--- NOTE | 2018-11-04 12:20 | NUR ---
PT CONTINUES TO DENY HOME NEEDS ON DISCHARGE.
--- NOTE | 2018-11-04 12:30 | NUR ---
Nutritional Support Services Note: Recommend diet change from cardiac diet back to ADA 1800 calorie diet, with no salt packet on tray. This diet limits fats, and sodium rich foods and will better control her BG levels. Recommend Glucerna TID to promote wound healing. Provided her with diet copy of ADA 1800 calorie diet and provided education, going through and explaining the packet to her. She was able to pick out portion sizes and foods from each section given. She has a good understanding. I think she will try to adhere to diet as best she can once DC. Kenyon Joy[employer] C[employer] Student
--- NOTE | 2018-11-04 13:09 | NUR ---
C/O PAIN TO RIGHT SIDE OF 11/05. OXYCODONE REQUESTED AND GIVEN AT THIS TIME.WILL CONT TO MONITOR
[2018-11-04] MEDS ORDERED: TOPROL XL25 MG PO (13:54)
[2018-11-04] MEDS ORDERED: IMDUR SA30 MG PO (13:54)
--- NOTE | 2018-11-04 14:51 | NUR ---
PT DISCHARGED AT THIS TIME. IV REMOVED AND PRESSURE DRESSING APPLIED. VERBALIZED UNDERSTANDIND OF DISCHARGE INSTRUCTIONS
== END 2018-11-04 14:51 | disposition home or self-care (01) | DRG 205 ==
LOC: ED 17:43 → EDHOLD 20:44 → 5E 20:44
PROVIDERS: Emergency Medicine; Internal Medicine; ADMIT Internal Medicine
PROC: 4A02XM4 Measurement of Cardiac Total Activity, External Approach (ICD-10-PCS; principal; 2018-11-03)
PROC: 3E073KZ Introduction of Other Diagnostic Substance into Coronary Artery, Percutaneous Approach (ICD-10-PCS; principal; 2018-11-03)
PROC: 0HB6XZZ Excision of Back Skin, External Approach (ICD-10-PCS; 2018-11-04)
DX: M94.0 Chondrocostal junction syndrome [Tietze] (principal); L89.154 Pressure ulcer of sacral region, stage 4; I26.99 Other pulmonary embolism without acute cor pulmonale; E87.1 Hypo-osmolality and hyponatremia; L51.1 Stevens-Johnson syndrome; D64.9 Anemia, unspecified; E78.5 Hyperlipidemia, unspecified; E83.41 Hypermagnesemia; R82.71 Bacteriuria; E66.01 Morbid (severe) obesity due to excess calories; M15.9 Polyosteoarthritis, unspecified; M79.7 Fibromyalgia; I25.708 Atherosclerosis of coronary artery bypass graft(s), unspecified, with other forms of angina pectoris; I13.10 Hypertensive heart and chronic kidney disease without heart failure, with stage 1 through stage 4 chronic kidney disease, or unspecified chronic kidney disease; K21.9 Gastro-esophageal reflux disease without esophagitis; N18.3 Chronic kidney disease, stage 3 (moderate); E11.22 Type 2 diabetes mellitus with diabetic chronic kidney disease; E11.42 Type 2 diabetes mellitus with diabetic polyneuropathy; E11.51 Type 2 diabetes mellitus with diabetic peripheral angiopathy without gangrene; R59.0 Localized enlarged lymph nodes; Z79.4 Long term (current) use of insulin; Z95.1 Presence of aortocoronary bypass graft; Z88.2 Allergy status to sulfonamides; Z88.1 Allergy status to other antibiotic agents; Z91.09 Other allergy status, other than to drugs and biological substances; Z88.8 Allergy status to other drugs, medicaments and biological substances; Z87.01 Personal history of pneumonia (recurrent); Z90.49 Acquired absence of other specified parts of digestive tract; Z98.51 Tubal ligation status; Z95.5 Presence of coronary angioplasty implant and graft; Z82.49 Family history of ischemic heart disease and other diseases of the circulatory system; Z80.8 Family history of malignant neoplasm of other organs or systems; Z83.3 Family history of diabetes mellitus; Z82.3 Family history of stroke; Z79.899 Other long term (current) drug therapy; Z79.82 Long term (current) use of aspirin; Z79.02 Long term (current) use of antithrombotics/antiplatelets; Z68.30 Body mass index [BMI] 30.0-30.9, adult

== ENCOUNTER 2018-12-05 12:25 | Emergency (ER) | payer SELFPAY ==
[~2018-12-05] VITALS: Ht 177.8 cm; Wt 88.9 kg
[~2018-12-05 12:25] MED LIST changes: +IMDUR SA30 MG PO; +LASIX40 MG PO; +LEXAPRO10 MG PO; +RESTORIL15 MG PO; +TOPROL XL25 MG PO
[2018-12-05 12:28] VITALS: BP 132/78
[2018-12-05 13:17] LABS: BASO % 0.5 % (0.0-1.0); EOS # 0.2 10*3/uL (0.0-0.4); EOS % 3.8 % (1.0-4.0); HEMATOCRIT 35.5 % (37.0-47.0); HEMOGLOBIN 11.6 g/dl (12.0-16.0); LYMPH # 1.3 10*3/uL (1.3-4.4); LYMPH % 21.2 % (27.0-41.0); MEAN CORPUSCULAR HGB 31.7 pg (27.0-31.0); MEAN CORPUSCULAR HGB CONC 32.7 g/dl (33.0-37.0); MEAN PLATELET VOLUME 9.5 fl (9.6-12.3); MONO # 0.3 10*3/uL (0.1-1.0); MONO % 5.2 % (3.0-9.0); NEUT # 4.2 10*3/uL (2.3-7.9); PLATELET COUNT AUTOMATED 157 10*3/uL (130-400); RED BLOOD COUNT 3.66 10*6/uL (4.10-5.10); RED CELL DISTRI WIDTH 12.9 % (0-14.5); WHITE BLOOD COUNT 6.1 10*3/uL (4.8-10.8)
[2018-12-05 13:33] LABS: ALBUMIN 3.6 gm/dl (3.1-4.5); CREATININE 1.35 mg/dL (0.55-1.02); POTASSIUM 4.3 mmol/L (3.5-5.1); TOTAL PROTEIN 8.5 gm/dL (6.4-8.2)
[2018-12-05] MEDS ORDERED: ANTIBIOTIC28.4 GM T (14:20)
[2018-12-05] MEDS ORDERED: DOXYCYCLINE100 M3 PO (14:20)
== END 2018-12-05 14:24 | disposition home or self-care (01) ==
LOC: ED 12:25
PROVIDERS: Nurse Practitioner Family
DX: L03.032 Cellulitis of left toe (principal); L03.116 Cellulitis of left lower limb; I25.10 Atherosclerotic heart disease of native coronary artery without angina pectoris; I25.2 Old myocardial infarction; E11.9 Type 2 diabetes mellitus without complications; M86.8X7 Other osteomyelitis, ankle and foot; Z86.73 Personal history of transient ischemic attack (TIA), and cerebral infarction without residual deficits; Z88.2 Allergy status to sulfonamides; Z88.1 Allergy status to other antibiotic agents; Z91.041 Radiographic dye allergy status; Z88.8 Allergy status to other drugs, medicaments and biological substances; Z88.0 Allergy status to penicillin; Z79.899 Other long term (current) drug therapy; Z79.4 Long term (current) use of insulin; Z79.82 Long term (current) use of aspirin; Z90.49 Acquired absence of other specified parts of digestive tract

== ENCOUNTER 2019-03-16 09:59 | Inpatient (IN) | payer MEDICAID ==
[~2019-03-16] VITALS: Ht 175.2 cm; Wt 97.8 kg
[~2019-03-16 09:59] MED LIST changes: +ANTIBIOTIC28.4 GM T; +DOXYCYCLINE100 M3 PO
[2019-03-16 10:01] VITALS: BP 144/69
[2019-03-16 10:55] LABS: BASO % 0.5 % (0.0-1.0); EOS # 0.3 10*3/uL (0.0-0.4); EOS % 4.6 % (1.0-4.0); HEMATOCRIT 31.7 % (37.0-47.0); HEMOGLOBIN 9.9 g/dl (12.0-16.0); LYMPH # 1.9 10*3/uL (1.3-4.4); LYMPH % 29.7 % (27.0-41.0); MEAN CELL VOLUME 96.4 fl (81.0-99.0); MEAN CORPUSCULAR HGB 30.1 pg (27.0-31.0); MEAN CORPUSCULAR HGB CONC 31.2 g/dl (33.0-37.0); MEAN PLATELET VOLUME 9.4 fl (9.6-12.3); MONO # 0.3 10*3/uL (0.1-1.0); MONO % 4.7 % (3.0-9.0); NEUT # 3.8 10*3/uL (2.3-7.9); NEUT % 60.2 % (47.0-73.0); PLATELET COUNT AUTOMATED 208 10*3/uL (130-400); RED BLOOD COUNT 3.29 10*6/uL (4.10-5.10); RED CELL DISTRI WIDTH 13.1 % (0-14.5); WHITE BLOOD COUNT 6.3 10*3/uL (4.8-10.8)
[2019-03-16 11:05] LABS: ACT PARTIAL THROMBO TIME 27.2 SECONDS (20.0-32.1)
[2019-03-16 11:09] LABS: ALBUMIN 3.2 gm/dl (3.1-4.5); CREATININE 1.45 mg/dL (0.55-1.02); POTASSIUM 3.8 mmol/L (3.5-5.1); TOTAL PROTEIN 8.3 gm/dL (6.4-8.2)
[2019-03-16 11:48] VITALS: BP 123/61
[2019-03-16 12:00] VITALS: BP 135/60
--- NOTE | 2019-03-16 12:00 | NUR ---
A 53, admitted to 5E, under the services of MERCEDES Garcia DO with a diagnosis of ABCESS/CELLULITIS. Chief complaint is PAIN. Patient arrived via ambulatory from ER. Monitor applied. Initial assessment completed. Vital signs taken and recorded. MERCEDES GARCIA DO notified of admission to the unit. Orders received. See assessment for past medical history, medications and allergies. Patient and/or family oriented to unit. [address] [facility] visitation policy reviewed. Clothing/patient valuable form completed. VALENTINO ANAND
[2019-03-16] MEDS ORDERED: VITAMIN D31000 UNI1 PO (12:35)
[2019-03-16] MEDS ORDERED: NYAMYC15 GM T (12:36)
--- NOTE | 2019-03-16 14:08 | NUR ---
CONSULT CALLED TO DR. DEUTSCH'S ANSWERING SERVICE
--- NOTE | 2019-03-16 14:11 | NUR ---
CONSULT CALLED FOR NIRAV.
--- NOTE | 2019-03-16 14:11 | NUR ---
CONSULT CALLED TO [facility]OUND [facility]ARE [facility] FOR LAZARO MIRANDA.
[2019-03-16 16:00] VITALS: BP 138/66
--- NOTE | 2019-03-16 19:30 | NUR ---
24 HOUR CHART CHECK COMPLETED
[2019-03-16 20:00] VITALS: BP 136/63
--- NOTE | 2019-03-16 20:15 | NUR ---
PATIENT ASSESSMENT COMPLETED AT THIS TIME. PATIENT REQUESTING MEDICATION FOR PAIN 6/10 IN HER LEFT FOOT AT THIS TIME, DENIES ANY OTHER PAIN OR DISCOMFORT. CALL LIGHT WITHIN REACH. PATIENT UP IN RECLINER. WILL CONTINUE TO MONITOR.
--- NOTE | 2019-03-16 21:10 | NUR ---
PATIENT STATED THAT PAIN IS BETTER AND RATED IT AT A 5/10 AT THIS TIME.
[2019-03-17] VITALS: BP 152/63
--- NOTE | 2019-03-17 00:36 | NUR ---
PATIENT MEDICATED WITH MORPHINE AT THIS TIME FOR 10/10 PAIN IN HER LEFT FOOT.
--- NOTE | 2019-03-17 01:20 | NUR ---
PATIENT STATED THAT PAIN WAS BETTER NOW A 5/10 ON PAIN SCALE.
--- NOTE | 2019-03-17 04:00 | NUR ---
PATIENT MEDICATED FOR PAIN 12/06 AT THIS TIME, SEE EMAR.
--- NOTE | 2019-03-17 04:15 | NUR ---
PATIENT RESTING IN A POSITION OF COMFORT IN RECLINER AT THIS TIME, WATCHING TELEVISION. DENIES ANY NEEDS AT THIS TIME. STATED THAT PAIN HAS IMPROVED FROM AN 8/10 TO A 5/10 AFTER PAIN MEDICATION. CALL LIGHT WITHIN REACH WILL CONTINUE TO MONITOR.
[2019-03-17 06:41] LABS: BASO % 0.3 % (0.0-1.0); EOS # 0.2 10*3/uL (0.0-0.4); EOS % 4.2 % (1.0-4.0); HEMATOCRIT 30.7 % (37.0-47.0); HEMOGLOBIN 9.4 g/dl (12.0-16.0); LYMPH # 1.3 10*3/uL (1.3-4.4); LYMPH % 21.7 % (27.0-41.0); MEAN CELL VOLUME 97.5 fl (81.0-99.0); MEAN CORPUSCULAR HGB 29.8 pg (27.0-31.0); MEAN CORPUSCULAR HGB CONC 30.6 g/dl (33.0-37.0); MONO # 0.3 10*3/uL (0.1-1.0); MONO % 5.6 % (3.0-9.0); NEUT # 3.9 10*3/uL (2.3-7.9); NEUT % 67.9 % (47.0-73.0); PLATELET COUNT AUTOMATED 198 10*3/uL (130-400); RED BLOOD COUNT 3.15 10*6/uL (4.10-5.10); RED CELL DISTRI WIDTH 13.1 % (0-14.5); WHITE BLOOD COUNT 5.8 10*3/uL (4.8-10.8)
[2019-03-17 06:52] LABS: ALBUMIN 2.9 gm/dl (3.1-4.5); POTASSIUM 4.2 mmol/L (3.5-5.1)
[2019-03-17 06:58] LABS: CREATININE 1.28 mg/dL (0.55-1.02); FREE T4 1.07 ng/dl (0.76-1.46); PHOSPHOROUS 3.6 mg/dL (2.5-4.9); THYROID STIM HORMONE (HS) 1.93 uIU/ml (0.358-4.75); TOTAL PROTEIN 7.9 gm/dL (6.4-8.2)
[2019-03-17 07:01] LABS: ACT PARTIAL THROMBO TIME 28.5 SECONDS (20.0-32.1)
[2019-03-17 07:56] LABS: VITAMIN D, 25-HYDROXY 28.9 ng/mL (30-100)
[2019-03-17 08:00] VITALS: BP 118/60
--- NOTE | 2019-03-17 09:00 | NUR ---
Audio Visual Director in to talk to patient. Patient states lives at home with . There are few steps in the home. Physician: ana munoz [facility]acy: [facility] Home health services: none at present Patient's level of ADLs: INDEPENDENT Patient has working utilities: all working DME: none Follow-up physician's appointment after d/c: will be made by hospitalist nurse director upon discharge Does patient want to access PORTAL?: no Discharge plan discussed with patient, she lives at home with , she is independent in adls and will return home when medically stable, she states she will return home when medically stable. CARLOS BRITTON
--- NOTE | 2019-03-17 10:47 | NUR ---
GUILLERMO BURGOS [id number] Please refer to the physician's history and physical for past medical history, comorbid conditions, and allergies. Diagnosis: CELLULITIS AND ABSCESS OF FOOT Jacob Score: 20,LOW OR NO RISK WOUND DESCRIPTIONS: Wound Number: 1 Location of the wound: LEFT GREAT TOE, BOTTOM Thickness: Full Size: 1.4cm X 0.9cm X 0.4cm Tunneling: NONE Undermining: NONE Sinus Tract: NONE Presence of Exudate: Serous Amount: Light Color: Yellow, Red Odor: None Periwound Skin Appearance: Callus Wound edges: APPROXIMATED Pain (associated with wound): DENIED AT TIME OF ASSESSMENT How does patient state this happened? PATIENT STATES THIS HAS BEEN THERE FOR "MONTHS." If wound is on legs/feet or hands, capillary refill time, pulses, color temp, sensation: CAP REFILL < 3 SECONDS. Wound Number: 2 Location of the wound: LEFT 5TH TOE Thickness: Full Size: 1.3cm X 1.6cm X 0.4cm Tunneling: NONE Undermining: NONE Sinus Tract: NONE Presence of Exudate: Serous sanguineous Amount: Moderate Color: Yellow, Red, Mane Odor: None Periwound Skin Appearance: Erythema, Edema, Macerated Wound edges: APPROXIMATED Pain (associated with wound): TENDER TO TOUCH How does patient state this happened? PATIENT STATES THIS WOUND HAS BEEN THERE FOR "MONTHS." If wound is on legs/feet or hands, capillary refill time, pulses, color temp, sensation: CAPR REFILL < 3 SECONDS. Surface the patient is resting on: Position Pro SKIN PREVENTION RECOMMENDATION: 1. Pressure redistribution support surface as appropriate 2. Elevate heels 3. Remove boots/TEDS every shift and reapply 4. Head of bed 30 degrees as tolerated 5. Assess nutrition and hydration 6. Manage moisture 7. Avoid the use of containment devices while in bed 8. Use absorptive products on surfaces limit layers of linens on bed 9. Turn and reposition every 1-2 hours in bed and every 1 hour in chair as tolerated 10. Weight shifts every 15 minutes while up in chair 11. Offloading with pillows or device to keep heels elevated off bed 12. Monitor skin at least every shift 13. Inspect under medical devices twice a day WOUND TREATMENT RECOMMENDATIONS: PODIATRY TO DO SURGERY TODAY AT NOON PER DR. MORENO NOTE 03/16/19 AT 1641. AWAIT ORDERS FROM PODIATRY POST SURGERY.
[2019-03-17 12:00] VITALS: BP 128/65
[2019-03-17 16:00] VITALS: BP 123/74
[2019-03-17 20:00] VITALS: BP 108/57
--- NOTE | 2019-03-17 21:31 | NUR ---
OXYCODONE GIVEN PER ORDER FOR RIGHT SIDE RIB PAIN PER PT. "7-8" PATIENT STATES SHE HAS HAPPEN SOMETIMES.
--- NOTE | 2019-03-17 22:00 | NUR ---
BSG 171 PT. WILL BE NPO FOR THE NIGHT. BOTH INSULIN REFUSED BY PATIENT.
--- NOTE | 2019-03-17 22:30 | NUR ---
OXYCODONE HELPED WITH RIGHT SIDE PAIN PER PATIENT.
--- NOTE | 2019-03-17 23:17 | NUR ---
MORPHINE GIVEN PER ORDER FOR PAIN IN R RIB"6". SEE MAR.
[2019-03-18] VITALS (12 sets, daily range): BP systolic 98–136; BP diastolic 46–76
--- NOTE | 2019-03-18 00:09 | NUR ---
RESTORIL GIVEN PER ORDER FOR INSOMNIA. MORPHIN EFFECTIVE FOR PAIN PER PT.
--- NOTE | 2019-03-18 01:01 | NUR ---
24 HR chart check completed.
--- NOTE | 2019-03-18 04:18 | NUR ---
MORPHINE GIVEN PER ORDER FOR RIGHT SIDE RIB PAIN RATED "7" SEE MAR.
--- NOTE | 2019-03-18 05:15 | NUR ---
MORPHINE EFFECTIVE FOR PAIN PER PT.
[2019-03-18 06:29] LABS: CREATININE 1.46 mg/dL (0.55-1.02); POTASSIUM 4.2 mmol/L (3.5-5.1)
[2019-03-18 06:35] LABS: BASO % 0.4 % (0.0-1.0); EOS # 0.3 10*3/uL (0.0-0.4); EOS % 4.6 % (1.0-4.0); HEMATOCRIT 33.3 % (37.0-47.0); HEMOGLOBIN 10.2 g/dl (12.0-16.0); LYMPH % 28.6 % (27.0-41.0); MEAN CELL VOLUME 98.8 fl (81.0-99.0); MEAN CORPUSCULAR HGB 30.3 pg (27.0-31.0); MEAN CORPUSCULAR HGB CONC 30.6 g/dl (33.0-37.0); MEAN PLATELET VOLUME 9.6 fl (9.6-12.3); MONO # 0.4 10*3/uL (0.1-1.0); MONO % 6.2 % (3.0-9.0); NEUT # 4.1 10*3/uL (2.3-7.9); NEUT % 59.9 % (47.0-73.0); PLATELET COUNT AUTOMATED 194 10*3/uL (130-400); RED BLOOD COUNT 3.37 10*6/uL (4.10-5.10); RED CELL DISTRI WIDTH 13.3 % (0-14.5); WHITE BLOOD COUNT 6.9 10*3/uL (4.8-10.8)
--- NOTE | 2019-03-18 09:00 | NUR ---
case management visits with patient, discussed with her a discharged plan and if she could administer home iv antibiotics if the doctor ordered them, she stated she would be fine adminitering them, she and her son have administered them again, she also stated she would like to have [facility] to follow her at home, case management will follow
--- NOTE | 2019-03-18 14:12 | NUR ---
Per nursing patient recently returned from surgery to her room. Nurse reports that her blood pressure is very low and to wait on therapy at this time. OTR will attempt at a later date. Carey Appiah OTR/shakira
--- NOTE | 2019-03-18 14:53 | NUR ---
CURRICULUM DEVELOPMENT SPECIALIST received notice the patient will need 6 weeks IVAB along with needing a wound vac. Patient has [place] Medicaid therefore patient has to stay in [place]. [facility] is full at this time. CURRICULUM DEVELOPMENT SPECIALIST faxed referral to [facility] for review. -ANAIS Cadena
--- NOTE | 2019-03-18 16:58 | NUR ---
PT C/O LEFT FOOT PAIN AND REQUESTING MEDICATION. PER DR WASSERMAN CONTACT PODIATRY. I SPOKE TO DR MORENO AND REQUESTED IV TYLENOL PT IS VERY LETHARGIC POST I&D. ORDER FOR 1 TIME IV [id number] RECEIVED
--- NOTE | 2019-03-18 20:00 | NUR ---
PATIENT SLEEPING OFF AND ON AND DROWSY WHEN IS AWAKE. RESP. REG. LUNG SOUNDS CLEAR BUT DIMINISHED. WOUND VAC ON LEFT FOOT WITH DRESSING INTACT.
--- NOTE | 2019-03-18 23:41 | NUR ---
OXYCODONE GIVEN FOR PAIN OF LEFT TOE AND RIGHT SIDE PAIN RATED "6". SEE MAR.
--- NOTE | 2019-03-18 23:58 | NUR ---
RESTORIL GIVEN FOR INSOMNIA TO HELP PATIENT SLEEP. SEE MAR.
[2019-03-19] VITALS: BP 125/62
--- NOTE | 2019-03-19 00:58 | NUR ---
OXYCODONE HELPING PER PT AT THIS TIME.
--- NOTE | 2019-03-19 01:52 | NUR ---
PT. C/O PAIN RATED "7" RIGHT SIDE RIBS, ALSO PAIN LEFT FOOT RATED "4-5". MORPHINE TO BE GIVEN FOR PAIN.
--- NOTE | 2019-03-19 02:44 | NUR ---
24 HR chart check completed.
--- NOTE | 2019-03-19 02:50 | NUR ---
MORPHINE EFFECTIVE FOR PAIN REDUCTIONS PER PATIENT.
--- NOTE | 2019-03-19 06:09 | NUR ---
OXYCODONE GIVEN PER ORDER FOR RIGHT SIDE RIB PAIN RATED "7" LEFT FOOT RATE "4-5"
[2019-03-19 06:31] LABS: CREATININE 1.27 mg/dL (0.55-1.02); POTASSIUM 4.4 mmol/L (3.5-5.1)
[2019-03-19 06:43] LABS: BASO % 0.3 % (0.0-1.0); EOS # 0.4 10*3/uL (0.0-0.4); HEMATOCRIT 29.4 % (37.0-47.0); HEMOGLOBIN 9.2 g/dl (12.0-16.0); LYMPH # 1.7 10*3/uL (1.3-4.4); LYMPH % 23.8 % (27.0-41.0); MEAN CELL VOLUME 97.7 fl (81.0-99.0); MEAN CORPUSCULAR HGB 30.6 pg (27.0-31.0); MEAN CORPUSCULAR HGB CONC 31.3 g/dl (33.0-37.0); MEAN PLATELET VOLUME 10.2 fl (9.6-12.3); MONO # 0.3 10*3/uL (0.1-1.0); MONO % 4.6 % (3.0-9.0); NEUT # 4.6 10*3/uL (2.3-7.9); NEUT % 65.9 % (47.0-73.0); PLATELET COUNT AUTOMATED 179 10*3/uL (130-400); RED BLOOD COUNT 3.01 10*6/uL (4.10-5.10); RED CELL DISTRI WIDTH 13.3 % (0-14.5)
--- NOTE | 2019-03-19 07:00 | NUR ---
OXYCODONE EFFECTIVE PER PT
[2019-03-19 08:00] VITALS: BP 112/53
--- NOTE | 2019-03-19 09:00 | NUR ---
case management visits with patient, discussed with her referring her to the [facility], patient stated she would much rather go home but would consider the facility, Dr Colin has not decided on an iv antibiotic until culture reports are done, case management will follow
--- NOTE | 2019-03-19 11:09 | NUR ---
Patient out of the room in surgery for PICC line placement. OTR will recheck for OT evaluation at a later time. Carey Appiah OTR/l
--- NOTE | 2019-03-19 11:09 | NUR ---
PHYSICAL THERAPY Attempted to see pt for evaluaiton presently out of room for PICC line will follow. Lisa Baum PT
--- NOTE | 2019-03-19 12:04 | NUR ---
ANAIS spoke with [facility] currently does not have a female bed that would be safe for the patient at this time, but a bed should be available within the next day or so. ANAIS notified Devulcanizer Loader Marlene. -ANAIS Cadena
--- NOTE | 2019-03-19 13:00 | NUR ---
Occupational Therapy evaluation completed on 5 with full eval to follow. Precautions include fall risk, PICC line RUE,wound vac LLE, PWB LLE for transfers ONLY, low complexity level 30039 via chart reveiw, testing and evaluation.Patient educated on PWB LLE, wheeled walker use for transfers only. Recommend OT per POC and SNF for IV antibiotics and wound vac. Patient could benefit from SNF-OT for short period of time but she will be limited by PWB LLE for progression from w/c height. Thank you. Hector Appiah OTR/l
--- NOTE | 2019-03-19 13:02 | NUR ---
SPOKE WITH REBECCA THE PODIATRY RESIDENT REGARDING WOUND VAC ORDERS. REBECCA STATES THAT SHE WILL PUT IN THE WOUND VAC ORDERS SOON POSSIBLE.
--- NOTE | 2019-03-19 14:04 | NUR ---
PHYSICAL THERAPY Isatu completed moderate level of complexity-[id number]. PT to work on transfers, strengthening, education on PWB status for transfers with use of FWW and safety. Discussed home with HH looking at ramp option with w/c vs SNF due to PWB with wound vac and antibiotic treatment, Lisa Baum PT
[2019-03-19 14:11] LABS: ACID FAST SPEC PROCESSING Tissue Grinding (.)
--- NOTE | 2019-03-19 14:23 | NUR ---
PER DR WASSERMAN PICC LINE CAN BE USED
[2019-03-19 16:00] VITALS: BP 120/56
--- NOTE | 2019-03-19 19:50 | NUR ---
C/O PAIN IN LEFT FOOT RATED "6" WOUND VAC WITH 200mmHg suction. OXYCODONE GIVEN PER ORDER FOR PAIN. PATIEN SITTING UP IN CHAIR WATCHING TV.
[2019-03-19 20:00] VITALS: BP 105/52
--- NOTE | 2019-03-19 20:38 | NUR ---
24 HR chart check completed.
--- NOTE | 2019-03-19 20:50 | NUR ---
OXYCODONE EFFECTIVE FOR PAIN PER PT.
--- NOTE | 2019-03-19 22:48 | NUR ---
MORPHINE GIVEN PER ORDER FOR PAIN RATED "6-7" LEFT FOOT PER PT. MOSTLY TOP OF FOOT. RESTORIL GIVEN PER ORDER FOR INSOMNIA. SEE MAR.
--- NOTE | 2019-03-19 23:45 | NUR ---
MORPHINE EFFECTIVE FOR LEFT FOOT PAIN PER PT. RESTORIL NOT EFFECTIVE AT THIS TIME FOR INSOMNIA.
[2019-03-20] VITALS: BP 106/50
--- NOTE | 2019-03-20 01:00 | NUR ---
RESTORIL EFFECTIVE PT. SLEEPING
--- NOTE | 2019-03-20 02:53 | NUR ---
PT. STILL SLEEPING. NO DISTRESS NOTED. WOUND VAC STILL CONT.
--- NOTE | 2019-03-20 06:18 | NUR ---
PT. C/O LEFT FOOT HURTING RATED "7' OXYCODONE GIVEN PER ORDER FOR PAIN. SEE MAR.
[2019-03-20 06:36] LABS: BASO % 0.3 % (0.0-1.0); EOS # 0.3 10*3/uL (0.0-0.4); EOS % 5.3 % (1.0-4.0); HEMOGLOBIN 8.8 g/dl (12.0-16.0); LYMPH # 1.8 10*3/uL (1.3-4.4); LYMPH % 29.2 % (27.0-41.0); MEAN CELL VOLUME 98.6 fl (81.0-99.0); MEAN CORPUSCULAR HGB 29.9 pg (27.0-31.0); MEAN CORPUSCULAR HGB CONC 30.3 g/dl (33.0-37.0); MONO # 0.4 10*3/uL (0.1-1.0); MONO % 6.3 % (3.0-9.0); NEUT # 3.6 10*3/uL (2.3-7.9); NEUT % 58.4 % (47.0-73.0); PLATELET COUNT AUTOMATED 174 10*3/uL (130-400); RED BLOOD COUNT 2.94 10*6/uL (4.10-5.10); RED CELL DISTRI WIDTH 13.4 % (0-14.5); WHITE BLOOD COUNT 6.1 10*3/uL (4.8-10.8)
[2019-03-20 06:49] LABS: CREATININE 1.19 mg/dL (0.55-1.02)
[2019-03-20 08:00] VITALS: BP 113/53
--- NOTE | 2019-03-20 08:05 | NUR ---
MORPHINE GIVEN FOR C/O LT FOOT PAIN. RATES 8/10 ON PAIN SCALE. WILL MONITOR.
--- NOTE | 2019-03-20 08:30 | NUR ---
PHYSICAL THERAPY PT SITTING IN RECLINER UPON ARRIVAL. PT IDENTIFIED BY NAME AND . PT AGREED TO ALL PHYSICAL THERAPY TREATMENT THIS A.M. PT PERFORMED SIT TO STAND TO AND FROM RECLINER TO FWW 4 TIME WITH SHORT SEATED BREAK BETWEEN EACH STS, WITH MODa X1 AND VC'S FOR SAFETY, TECHNIQUE AND WB STATUS. PT STRUGGLES WITH PUSHING THROUGHT RLE TO GET TO STANDING AND WANTS TO PUT LLE DOWN TO HELP REQUIRES CONSTANT VC'S FOR NWB STATUS. PT SITTING IN RECLINER WITH CALL LIGHT IN HAND AT END OF SESSIION. PT REPORTS NO OTHER NEEDS AT THIS TIME. PT SEEN 1:1 FOR 20MINS. MARJORIE CLEANING PTA
--- NOTE | 2019-03-20 09:00 | NUR ---
case management visits with patient, present, case management again discussed with them a short term penitentiary to meet all of patient's healthcare needs, they both declined a SNF, stated he was able to care for patient at home, educated them that Dr Prieto has not yet decided which iv antibiotics she will be ordering at home and also podiatry has not made the decision to keep the wound vac on. case management will precert all needed equipement and iv when decision is made
--- NOTE | 2019-03-20 09:15 | NUR ---
MORPHINE EFFECTIVE PER PT.
--- NOTE | 2019-03-20 10:35 | NUR ---
OT NOTE PATIENT SEEN 1:1 OT THIS DATE 25 MINUTES. PATIENT INDENTIFIED BY NAME AND DATE OF [facility]. PATIENT SEATED IN RECLINER UPON ARRIVAL. COMPLETED UB BATHING/DRESSING EDUCATION SAFETY LLE PWB STATUS WITH TRANSFERS DURING ADL TASK WITH GOOD CARRYOVER AFTER EDUCATION. COMPLETED UB BATHING/ DRESSING MIN A AND LB DRESSING/BATHING MOD A WITH NURSING PRESENT TO ASSIST WITH WOUND VAC MANAGEMENT DURING LB DRESSING TASK. PATIENT REQUIRED INCREASE TIME. PATIENT COMPLETED SIT TO STAND FROM RECLINER MOD ASSIST WITH MIN VERBAL CUES TECHNIQUE AND LLE PRECAUTIONS. CONTINUE TOWARDS PLAN OF CARE. BRITTANY SOSA/Kumar
[2019-03-20 12:00] VITALS: BP 120/59
--- NOTE | 2019-03-20 12:29 | NUR ---
C/O PAIN IN LEFT FOOT 10/06 OXYCODONE 1 PO GIVEN. WILL CONTINUE TO ASSESS. SANTI ROSE RN
--- NOTE | 2019-03-20 14:03 | NUR ---
TYLENOL GIVEN FOR C/O HEADACHE. WILL MONITOR.
--- NOTE | 2019-03-20 14:38 | NUR ---
CALIBRATION LABORATORY TECHNICIAN received call from [facility]. They will have a bed available Saturday03/23/2019 in the evening. CALIBRATION LABORATORY TECHNICIAN notified Investment Consultant Marlene. -ANAIS Cadena
--- NOTE | 2019-03-20 15:22 | NUR ---
PHYSICAL THERAPY CO-SIGN I approve of the Physical Therapy notes written above. Lisa Baum PT
--- NOTE | 2019-03-20 15:23 | NUR ---
OCCUPATIONAL THERAPY CO-SIGN I approve of the Occupational Therapy notes written above. LUCILLE PARDO OTR/Kumar
[2019-03-20 16:00] VITALS: BP 107/61
[2019-03-20] MEDS ORDERED: CUBICIN RF500 MG IV (16:13)
--- NOTE | 2019-03-20 17:07 | NUR ---
MORPHINE GIVEN FOR C/O LT FOOT APIN. RATES 8/10 ON PAIN SCALE. WILL MONITOR. WAS NOT SCANNED.
--- NOTE | 2019-03-20 18:10 | NUR ---
morphine effective per pt.
[2019-03-20 20:00] VITALS: BP 118/62
--- NOTE | 2019-03-20 20:34 | NUR ---
MEDICATED WITH MS 2 MG SLOW IV PUSH FOR C/O LEFT FOOT PAIN RATED AN 8/10.
--- NOTE | 2019-03-20 22:27 | NUR ---
STATES MORPHINE HELPED SOMEWHAT; REQUESTING PAIN MEDICATION. MEDICATED WITH OXYCODONE FOR C/O LEFT FOOT PAIN.
[2019-03-21] VITALS: BP 116/63
--- NOTE | 2019-03-21 01:43 | NUR ---
MEDICATED WITH MS SLOW IV PUSH FOR C/O FOOT PAIN & PAIN ON RIGHT SIDE DUE TO ARTHRITIS. CALL LIGHT WITHIN REACH.
--- NOTE | 2019-03-21 04:00 | NUR ---
RESTING IN BED WITH EYES CLOSED; MORPHINE APPARENTLY EFFECTIVE. CALL LIGHT WITHIN REACH.
--- NOTE | 2019-03-21 05:47 | NUR ---
SLEEPING; AROUSES EASILY FOR MEDICATIONS. ASKING FOR PAIN MEDICATION. MEDICATED WITH MS SLOW IV PUSH FOR C/O FOOT PAIN RATED AN 8/10.
[2019-03-21 06:28] LABS: BASO % 0.6 % (0.0-1.0); EOS # 0.3 10*3/uL (0.0-0.4); EOS % 5.6 % (1.0-4.0); HEMATOCRIT 27.6 % (37.0-47.0); HEMOGLOBIN 8.7 g/dl (12.0-16.0); LYMPH # 1.9 10*3/uL (1.3-4.4); MEAN CELL VOLUME 98.9 fl (81.0-99.0); MEAN CORPUSCULAR HGB 31.2 pg (27.0-31.0); MEAN CORPUSCULAR HGB CONC 31.5 g/dl (33.0-37.0); MEAN PLATELET VOLUME 9.9 fl (9.6-12.3); MONO # 0.3 10*3/uL (0.1-1.0); MONO % 5.7 % (3.0-9.0); NEUT # 2.8 10*3/uL (2.3-7.9); NEUT % 52.5 % (47.0-73.0); PLATELET COUNT AUTOMATED 164 10*3/uL (130-400); RED BLOOD COUNT 2.79 10*6/uL (4.10-5.10); RED CELL DISTRI WIDTH 13.4 % (0-14.5); WHITE BLOOD COUNT 5.4 10*3/uL (4.8-10.8)
[2019-03-21 06:53] LABS: CREATININE 1.23 mg/dL (0.55-1.02); POTASSIUM 4.3 mmol/L (3.5-5.1)
[2019-03-21 08:00] VITALS: BP 102/62; BP 94/50
--- NOTE | 2019-03-21 08:50 | NUR ---
OXYCODONE GIVEN PER PRN ORDER FOR C/O LEFT FOOT PAIN. RATES PAIN 8/10. CHRONIC PAIN PER PT. WILL MONITOR EFFECTIVENESS.
--- NOTE | 2019-03-21 08:50 | NUR ---
FAMILY AT BEDSIDE.
--- NOTE | 2019-03-21 10:49 | NUR ---
ON FLOOR AND AWARE OF NO IV ANTIBIOTICS ORDERED ON EMAR AT THIS TIME. THIS NURSE CALLED SHRIMP PICKER FOR THE TUNNEL KILN REPAIRER MACHINE PAINT MIXER TO BE NOTIFIED REGARDING DISCHARGE PLAN. AWAITING RETURN PHONE CALL.
[2019-03-21 12:00] VITALS: BP 90/53
--- NOTE | 2019-03-21 13:55 | NUR ---
TYLENOL GIVEN PER PRN ORDER FOR C/O VALENCIA. WILL MONITOR EFFECTIVENESS.
--- NOTE | 2019-03-21 14:15 | NUR ---
PODIATRY IN TO SEE PATIENT.
--- NOTE | 2019-03-21 15:03 | NUR ---
PT SLEEPING. NO DISTRESS. WILL CONTINUE TO MONITOR.
[2019-03-21 16:00] VITALS: BP 105/58
--- NOTE | 2019-03-21 16:29 | NUR ---
JULY FROM ID IN TO SEE PATIENT REGARDING CONSULT.
--- NOTE | 2019-03-21 17:01 | NUR ---
PT REQUESTED AND RECEIVED PO OXY PER PRN ORDER FOR C/O LEFT FOOT PAIN. RATES PAIN 12/06. WILL MONITOR EFFECTIVENESS.
--- NOTE | 2019-03-21 18:16 | NUR ---
PAIN BEING RELIEVED PER PT. WILL CONTINUE TO MONITOR.
[2019-03-21 20:00] VITALS: BP 98/54
--- NOTE | 2019-03-21 20:37 | NUR ---
MEDICATED WITH MS FOR LEFT FOOT PAIN RATED A 7/10.
--- NOTE | 2019-03-21 22:00 | NUR ---
MS GIVEN EARLIER SOMEWHAT EFFECTIVE.
--- NOTE | 2019-03-21 23:00 | NUR ---
MEDICATED WITH OXYCODONE FOR C/O LEFT FOOT PAIN.
[2019-03-22] VITALS: BP 107/69
--- NOTE | 2019-03-22 00:30 | NUR ---
RESTING IN BED WITH EYES CLOSED. PAIN MEDICATION GIVE EARLIER APPARENTLY EFFECTIVE. CALL LIGHT WITHIN REACH.
--- NOTE | 2019-03-22 01:26 | NUR ---
MEDICATED WITH MS FOR C/O LEFT FOOT PAIN.
--- NOTE | 2019-03-22 03:00 | NUR ---
RESTING IN BED WITH EYES CLOSED; MORPHINE EFFECTIVE.
--- NOTE | 2019-03-22 06:23 | NUR ---
MEDICATED WITH MS FOR C/O LEFT FOOT PAIN.
[2019-03-22 06:30] LABS: BASO % 0.4 % (0.0-1.0); EOS # 0.3 10*3/uL (0.0-0.4); EOS % 6.5 % (1.0-4.0); HEMATOCRIT 28.3 % (37.0-47.0); HEMOGLOBIN 8.6 g/dl (12.0-16.0); LYMPH # 1.8 10*3/uL (1.3-4.4); LYMPH % 34.3 % (27.0-41.0); MEAN CORPUSCULAR HGB 30.4 pg (27.0-31.0); MEAN CORPUSCULAR HGB CONC 30.4 g/dl (33.0-37.0); MEAN PLATELET VOLUME 9.7 fl (9.6-12.3); MONO # 0.3 10*3/uL (0.1-1.0); MONO % 6.1 % (3.0-9.0); NEUT # 2.8 10*3/uL (2.3-7.9); NEUT % 52.3 % (47.0-73.0); PLATELET COUNT AUTOMATED 155 10*3/uL (130-400); RED BLOOD COUNT 2.83 10*6/uL (4.10-5.10); RED CELL DISTRI WIDTH 13.5 % (0-14.5); WHITE BLOOD COUNT 5.3 10*3/uL (4.8-10.8)
--- NOTE | 2019-03-22 06:44 | NUR ---
MEDICATED WITH OXYCODONE FOR C/O LEFT FOOT PAIN RATED AN 8/10.
[2019-03-22 07:00] LABS: ALBUMIN 2.8 gm/dl (3.1-4.5); CREATININE 1.28 mg/dL (0.55-1.02); POTASSIUM 4.4 mmol/L (3.5-5.1); TOTAL PROTEIN 7.4 gm/dL (6.4-8.2)
[2019-03-22 08:00] VITALS: BP 108/67
[2019-03-22 12:00] VITALS: BP 107/51
[2019-03-22 16:00] VITALS: BP 107/66
[2019-03-22 20:00] VITALS: BP 116/54
--- NOTE | 2019-03-22 20:35 | NUR ---
MORPHINE GIVEN PER ORDER FOR LEFT FOOT/TOE PAIN RATED '8' PER PT. SEE MAR.
--- NOTE | 2019-03-22 21:30 | NUR ---
MORPHINE EFFECTIVE FOR PAIN PER PT. PATIENT RESTING MORE COMFORTABLLY.
[2019-03-23] VITALS: BP 120/62
--- NOTE | 2019-03-23 01:47 | NUR ---
SLEEPING IN CHAIR. RESP. EASY AND REG. NO ACUTE DISTRESS NOTED.
--- NOTE | 2019-03-23 02:14 | NUR ---
24 HR chart check completed.
--- NOTE | 2019-03-23 03:15 | NUR ---
OXYCODONE GIVEN PER ORDER FOR PAIN IN BOTH FEET. RATED "8". SEE MAR.
--- NOTE | 2019-03-23 04:15 | NUR ---
OXYCODONE EFFECTIVE FOR FOOT PAIN.
--- NOTE | 2019-03-23 05:52 | NUR ---
MORPHINE GIVEN PER ORDER FOR BILATERAL FOOT PAIN RATED "8" SEE MAR.
--- NOTE | 2019-03-23 07:45 | NUR ---
PHYSICAL THERAPY PT IN RECLINER WITH CHAIR RECLINER UPIN ARRIVAL. PT AGREED TO ALL PHYSICAL THERAPY TREATMENT. PT PERFORMED STS TO AND FROM RECLINER X3 WITH Haritha X1 WITH VC'S FOR SAFETY AND WB STATUS. PT PERFORMED STANDING TOLERANCE FOR 4MIN WITH SBA AND USE OF FWW WITH NWB IN LLE. PT REQUIRES VC'S THROUGHOUT SESSION TO MAINTAIN NWB. PT REPORTS 5-6/10 PAIN IN L FOOT. PT REPORTS NO OTHER NEEDS AT THIS TIME. PT IN RECLINER WITH CALL LIGHT AT PTS SIDE, TRAY INFRONT OF PT AND PHONE SITTING ON BED WITHIN ARMS REACH AT END OF SESSION. PT SEEN 1:1 FOR 15MINS THIS A.MCorry CLEANING PTA
[2019-03-23 08:00] VITALS: BP 112/74
--- NOTE | 2019-03-23 08:05 | NUR ---
OT NOTE Pt was seen this A.M. 1:1 for 20 minute OT session. Upon arrival pt was sitting upright in the recliner. Pt identified by name and and had complaints of "5 or 6 out of 10 pain in my left foot." While sitting in recliner pt donned B socks with SBA. Sit to stand completed from chair level with Herber and use of w/w for UE support. Challenged pt's static standing tolerance needed for increased I in self care tasks and functional transfers, pt was able to tolerate aprox 5 minutes before sitting due to fatigue. Throughout pt maintained weight bearing status with 100% compliance. Pt then completed functional mobility to the bedside commode with CGA and use of w/w while maintaining NWB to her LLE throughout. Pt transferred on/off standard commode with Herber due to low surface. Functional mobility was then completed back to the recliner where she was left sitting upright with call light in hand, tray table in place, and phone in reach. Continue with POC as able. SHEILA Villarreal/Kumar
--- NOTE | 2019-03-23 09:00 | NUR ---
case management and social sciences instructor spoke to patient regarding a short term detention for iv antibiotics and wound care, educated her that she needs more nursing care than be provided at home, that visiting nurses will only provide 3 days of care for around one hour a day, she will continue to be non weight bearing on the left foot and will have some difficulty maneuvering at home, patient was not sure she wanted to go to the facility, she continue to state she wanted to go home and her would be able to administer the medications and provide her care. patient then stated that her also has medically condition with his pacemaker and may need a new one inserted, again explained that she would be provided consistant care in the facility and would improve and be able to return home, she agreed with this and social sciences instructor is making arrangements for her to go to [facility]
[2019-03-23 09:46] VITALS: BP 119/53
--- NOTE | 2019-03-23 09:54 | NUR ---
PRN MORPHINE GIVEN FOR COMLAINTS OF PAIN TO THE LEFT FOOT RATED A 7/10. WILL MONITOR FOR EFFECTIVENESS.
--- NOTE | 2019-03-23 10:50 | NUR ---
RE-EVALUATED. PRN MORPHINE EFFECTIVE PER PT. CONTINUE TO MONITOR
[2019-03-23 12:00] VITALS: BP 139/74
--- NOTE | 2019-03-23 12:28 | NUR ---
PT C/O OF PAIN 10/10 TO HER LEFT FOOT. REQUESTED PAIN MEDICATION. OXYCODONE 1 PO GIVEN. WILL CONTINUE TO ASSESS. CHEY HERNANDEZ
--- NOTE | 2019-03-23 12:42 | NUR ---
SUSTAINABILITY DIRECTOR faxed updates to [facility]. SUSTAINABILITY DIRECTOR faxed [facility] to [facility]. Will await for [facility] to return for patient to go to SNF. -ANAIS Cadena
--- NOTE | 2019-03-23 13:20 | NUR ---
RE-EVALUATED. PRN PAIN MEDICATION EFFECTIVE. CONTINUE TO MONITOR
[2019-03-23] MEDS ORDERED: OXYCODONE HCL10 M1 PO (15:39)
[2019-03-23] MEDS ORDERED: NEURONTIN600 MG PO (15:39)
--- NOTE | 2019-03-23 15:40 | NUR ---
PAS/RR has been approved. CONTINUOUS LINTER DRIER OPERATOR notified sample case porter john who notified RN Hospitalist Miroslava. CONTINUOUS LINTER DRIER OPERATOR spoke with RN. CONTINUOUS LINTER DRIER OPERATOR spoke with [facility]. [facility] and scheduled a 6pm transport for the patient to go to [place].CONTINUOUS LINTER DRIER OPERATOR notified Work Correspondence School Teacher Terese Lizama of patients transport time. CONTINUOUS LINTER DRIER OPERATOR notified patient who stated she would notify her of the transport time. CONTINUOUS LINTER DRIER OPERATOR faxed discharge summary to [facility]. -ANAIS Cadena
[2019-03-23 16:00] VITALS: BP 124/64
--- NOTE | 2019-03-23 18:06 | NUR ---
PT DISCHARGED TO [facility] AT THIS TIME VIA [facility]. WOUND VAC DISCONNECTED WITH DRESSING INTACT PER INSTRUCTION FROM INDUSTRIAL MAINTENANCE TECHNICIAN/[facility]. PICC TO RIGHT ARM INTACT. VSS.
--- NOTE | 2019-03-23 22:46 | NUR ---
THIS NURSE AND TALHA COOL RN RECIEVED A CALL FROM SNF FAC[facility]. THEY STATED THAT THEY DID NOT RECIEVE REPORT ON THE PATIENT AND WERE UNSURE ABOUT SOME OF HER MEDICATIONS. REPORT GIVEN BY TALHA SHE HAD HAD PATIENT IN THE PAST, CHARGE THIS NURSE PULLED UP PATIENT CHART AND OBTAINED THE PATIENTS DISCHARGE PAPERWORK TO REFAX THE PATIENTS DISCHARGE TO THE NURSING FACILITY.
--- NOTE | 2019-03-24 07:53 | NUR ---
PHYSICAL THERAPY CO-SIGN I approve of the Physical Therapy notes written above. Lisa Baum PT
--- NOTE | 2019-03-24 15:34 | NUR ---
OCCUPATIONAL THERAPY CO-SIGN I approve of the Occupational Therapy notes written above. LUCILLE PARDO OTR/uKmar
== END 2019-03-23 18:06 | DRG 940 ==
LOC: ED 09:59 → EDHOLD 10:40 → 5E 10:40
PROVIDERS: Emergency Medicine; Hospitalist; Internal Medicine; Podiatrist; ADMIT Family Medicine
DX: Z68.31 Body mass index [BMI] 31.0-31.9, adult (principal); L03.116 Cellulitis of left lower limb; M84.675A Pathological fracture in other disease, left foot, initial encounter for fracture; M00.9 Pyogenic arthritis, unspecified; E44.0 Moderate protein-calorie malnutrition; E87.1 Hypo-osmolality and hyponatremia; M86.8X7 Other osteomyelitis, ankle and foot; L02.612 Cutaneous abscess of left foot; D64.9 Anemia, unspecified; I25.10 Atherosclerotic heart disease of native coronary artery without angina pectoris; E11.22 Type 2 diabetes mellitus with diabetic chronic kidney disease; K21.9 Gastro-esophageal reflux disease without esophagitis; N18.3 Chronic kidney disease, stage 3 (moderate); I12.9 Hypertensive chronic kidney disease with stage 1 through stage 4 chronic kidney disease, or unspecified chronic kidney disease; M79.7 Fibromyalgia; E66.01 Morbid (severe) obesity due to excess calories; E11.51 Type 2 diabetes mellitus with diabetic peripheral angiopathy without gangrene; M19.90 Unspecified osteoarthritis, unspecified site; E11.42 Type 2 diabetes mellitus with diabetic polyneuropathy; R79.82 Elevated C-reactive protein (CRP); R74.8 Abnormal levels of other serum enzymes; E11.69 Type 2 diabetes mellitus with other specified complication; B96.89 Other specified bacterial agents as the cause of diseases classified elsewhere; E55.9 Vitamin D deficiency, unspecified; E11.621 Type 2 diabetes mellitus with foot ulcer; E11.65 Type 2 diabetes mellitus with hyperglycemia; L97.529 Non-pressure chronic ulcer of other part of left foot with unspecified severity; Z95.1 Presence of aortocoronary bypass graft; Z98.51 Tubal ligation status; Z90.49 Acquired absence of other specified parts of digestive tract; Z82.49 Family history of ischemic heart disease and other diseases of the circulatory system; Z79.4 Long term (current) use of insulin; Z79.82 Long term (current) use of aspirin; Z79.899 Other long term (current) drug therapy; Z80.8 Family history of malignant neoplasm of other organs or systems; Z88.2 Allergy status to sulfonamides; Z88.0 Allergy status to penicillin; Z88.8 Allergy status to other drugs, medicaments and biological substances; Z22.321 Carrier or suspected carrier of Methicillin susceptible Staphylococcus aureus

== ENCOUNTER 2019-05-28 21:05 | Emergency (ER) | payer MEDICAID ==
[~2019-05-28] VITALS: Wt 93.0 kg
[~2019-05-28 21:05] MED LIST changes: +CUBICIN RF500 MG IV; +NYAMYC15 GM T; +VITAMIN D31000 UNI1 PO
[2019-05-28 23:00] VITALS: BP 145/80
== END 2019-05-29 00:24 | disposition home or self-care (01) ==
LOC: ED 21:05
DX: S42.212A Unspecified displaced fracture of surgical neck of left humerus, initial encounter for closed fracture (principal); M86.9 Osteomyelitis, unspecified; I25.10 Atherosclerotic heart disease of native coronary artery without angina pectoris; K21.9 Gastro-esophageal reflux disease without esophagitis; E66.01 Morbid (severe) obesity due to excess calories; M19.90 Unspecified osteoarthritis, unspecified site; M79.7 Fibromyalgia; I12.9 Hypertensive chronic kidney disease with stage 1 through stage 4 chronic kidney disease, or unspecified chronic kidney disease; E11.22 Type 2 diabetes mellitus with diabetic chronic kidney disease; N18.3 Chronic kidney disease, stage 3 (moderate); Z88.1 Allergy status to other antibiotic agents; Z88.2 Allergy status to sulfonamides; Z88.0 Allergy status to penicillin; Z88.8 Allergy status to other drugs, medicaments and biological substances; Z79.899 Other long term (current) drug therapy; Z79.82 Long term (current) use of aspirin; Z79.4 Long term (current) use of insulin; W18.39XA Other fall on same level, initial encounter; Y93.89 Activity, other specified; Y92.89 Other specified places as the place of occurrence of the external cause; Y99.8 Other external cause status

== ENCOUNTER → 2019-05-29 | Outpatient (CLI) | payer MEDICAID ==
[~2019-05-29] MED LIST changes: +VANCOMYCIN HCL250 MG PO
== END | disposition home or self-care (01) ==
LOC: RAD 14:00
DX: S42.309D Unspecified fracture of shaft of humerus, unspecified arm, subsequent encounter for fracture with routine healing (principal); X58.XXXD Exposure to other specified factors, subsequent encounter

== ENCOUNTER 2019-05-31 23:05 | Inpatient (IN) | payer MEDICAID ==
[~2019-05-31] VITALS: Ht 175.2 cm; Wt 95.4 kg
[~2019-05-31 23:05] MED LIST changes: -VANCOMYCIN HCL250 MG PO
[2019-05-31 23:09] VITALS: BP 96/48
[2019-06-01 00:28] VITALS: BP 105/51
[2019-06-01 01:17] LABS: HEMOGLOBIN 9.4 g/dl (12.0-16.0); MEAN CELL VOLUME 95.8 fl (81.0-99.0); MEAN CORPUSCULAR HGB CONC 31.3 g/dl (33.0-37.0); MEAN PLATELET VOLUME 10.4 fl (9.6-12.3); PLATELET COUNT AUTOMATED 194 10*3/uL (130-400); RED BLOOD COUNT 3.13 10*6/uL (4.10-5.10); RED CELL DISTRI WIDTH 15.8 % (0-14.5); WHITE BLOOD COUNT 23.5 10*3/uL (4.8-10.8)
[2019-06-01 01:32] LABS: ALKALINE PHOSPHATASE 106 U/L (45-117); BUN 26 mg/dl (7-24); CHLORIDE 96 mmol/L (98-107); CREATININE 2.06 mg/dL (0.55-1.02); POTASSIUM 5.2 mmol/L (3.5-5.1); SGOT/AST 19 IU/L (3-35); SGPT/ALT 22 U/L (12-78); SODIUM 126 mmol/L (136-145); TOTAL PROTEIN 7.1 gm/dL (6.4-8.2)
[2019-06-01 01:33] LABS: TROPONIN I < 0.015 ng/ml (<0.045)
[2019-06-01 01:36] LABS: PLATELET SUFFICIENCY NORMAL (NORMAL); TOTAL CELLS COUNTED 100 #CELLS
[2019-06-01 04:04] LABS: BILIRUBIN NEGATIVE (NEGATIVE); BLOOD 1+ (NEGATIVE); CLARITY SL CLOUDY (CLEAR); COLOR YELLOW (YELLOW); GLUCOSE 3+ (NEGATIVE); KETONE NEGATIVE (NEGATIVE); LEUKO ESTERASE NEGATIVE (NEGATIVE); NITRITE NEGATIVE (NEGATIVE); UROBILINOGEN 0.2 E.U./dl (0.2-1.0)
[2019-06-01 04:44] VITALS: BP 110/60
--- NOTE | 2019-06-01 05:09 | NUR ---
PER REBECCA SEWAGE PLANT ATTENDANT, PT TO RECEIVE PO OXYCODONE UPSTAIRS WHEN GET TO ROOM
--- NOTE | 2019-06-01 05:40 | NUR ---
A 53, admitted to 4E, under the services of FLORECITA Hurd DO with a diagnosis of SHANITA, HYPERGLYCEMIA, HYPONATREMIA, LEUKOCYTOSIS. Chief complaint is CHANGE IN MENTAL STATUS. Patient arrived via stretcher from ER. Monitor applied. Initial assessment completed. Vital signs taken and recorded. FLORECITA HURD DO notified of admission to the unit. Orders received. See assessment for past medical history, medications and allergies. Patient and/or family oriented to unit. [facility] visitation policy reviewed. Clothing/patient valuable form completed. LARRY GÓMEZ
--- NOTE | 2019-06-01 06:17 | NUR ---
MED REC UP TO DATE PER PT RECALL.
--- NOTE | 2019-06-01 06:59 | NUR ---
NOTIFIED OF PATIENT ON FLOOR/NEEDING ADMISSION ORDERS. WILL PUT ORDERS IN.
--- NOTE | 2019-06-01 07:05 | NUR ---
GUILLERMO BURGOS [id number] Please refer to the physician's history and physical for past medical history, comorbid conditions, and allergies. Diagnosis: SHANITA HYPERGLYCEMIA HYPONATREMIA, LEUKOCYTOSIS Jacob Score: , WOUND DESCRIPTIONS: Wound Number: 1 Location of the wound: right knee Type of wound: abrasion Thickness: Partial Size: 1.0cm x 1.5cm x 0.1cm Tunneling: none Undermining: none Sinus Tract: none Presence of Exudate: none Amount: None Color: Red Odor: None Periwound Skin Appearance: Erythema Wound edges: approximated Pain (associated with wound): none at time of assessment How does patient state this happened? pt state this is from her fall where she broke her arm Wound Number: 2 Location of the wound: left knee Type of wound: abrasion Thickness: Partial Size: 2.0cm x 2.0cm x 0.1cm Tunneling: none Undermining: none Sinus Tract: none Presence of Exudate: none Amount: None Color: Red, brown Odor: None Periwound Skin Appearance: Normal Wound edges: approximated Pain (associated with wound): none at time of assessment How does patient state this happened? pt state this is from her fall where she broke her arm Wound Number: 3 unna boot intact to left lower extremity patient states she follows with Dr. Lott every saturday. Wound Number: 4 Red patchy raised rash as well as linear scabbed areas noted to entire back, bilateral chest, bilateral breast, bilateral abdominal folds, posterior upper thighs, anterior upper thighs, periarea and entire buttocks. Patient states she was prescibed cream for scabies appilied the cream but has been unable to shower patient states she is only able to sponge bathe. Wound Number: 5 Location of the wound: coccyx Type of wound: stage 4 Thickness: Full Size: 1.5cm x 1.8cm x 1.0cm Tunneling: none Undermining: none Sinus Tract: none Presence of Exudate: Serous Amount: Light Color: Red, yellow Odor: None Periwound Skin Appearance: Macerated Wound edges: approximated Pain (associated with wound): none at time of assessment How does patient state this happened? pt stated this has been ongoing and she used to follow in the wound care center until she lost her insurance Right lower extremity dry, scaly and flaky at time of assessment. No open areas noted at time of assessment. Patient states she uses cetaphil daily for the dryness but doesn't think it is helping. Hyperkeratotic tissue noted to right medial aspect of great toe. Patient states she follows with podiatry for this as well as left lower extremity. Patient states she used to have bilateral lower legs wrap by podiatry every saturday. Surface the patient is resting on: Isoflex SKIN PREVENTION RECOMMENDATION: 1. Pressure redistribution support surface as appropriate 2. Elevate heels 3. Remove boots/TEDS every shift and reapply 4. Head of bed 30 degrees as tolerated 5. Assess nutrition and hydration 6. Manage moisture 7. Avoid the use of containment devices while in bed 8. Use absorptive products on surfaces limit layers of linens on bed 9. Turn and reposition every 1-2 hours in bed and every 1 hour in chair as tolerated 10. Weight shifts every 15 minutes while up in chair 11. Offloading with pillows or device to keep heels elevated off bed 12. Monitor skin at least every shift 13. Inspect under medical devices twice a day WOUND TREATMENT RECOMMENDATIONS: Consult ID for rash noted to entire back, bilateral chest, bilateral breast, bilateral abdominal folds, posterior upper thighs, anterior upper thighs, periarea, entire buttocks. Stage 4 guidelines: Cleanse coccyx with nss and apply wet to dry dressing per patient request patient states that is what works well for her. Partial thickness guidelines: Cleanes right knee, left knee with nss and apply sureprep around the wound hydrogel to wound bed and cover with optifoam gentle every 2 days and prn for soiling. Consult podiatry since she follows outpatient for area to left lower extremity. Patient is requesting to follow up with Gail Schreiber [facility]- she states she used to follow with her prior to losing her insurance.
--- NOTE | 2019-06-01 07:35 | NUR ---
WOUND PHOTOS TAKEN PER POLICY.
[2019-06-01 08:00] VITALS: BP 112/58
--- NOTE | 2019-06-01 08:13 | NUR ---
MEDICATED PER EMAR WITH TYLENOL PO FOR FEVER OF 101.9. WILL MONITOR FOR EFFECTIVENESS. CARRILLO ARSHAD SPADIACC
--- NOTE | 2019-06-01 08:28 | NUR ---
PHYSICAL THERAPY Screen received pt admitted from home with change in mental status with hallucinations, recent should fracture. Pt could benefit from PT pending medical status and progress, thank you. Lisa Baum PT
--- NOTE | 2019-06-01 09:04 | NUR ---
MORNING ASSESSMENT COMPLETE, PT RESTING COMFORTABLY IN BED. PT HAS REDDEND BUMPY RASH ON UPPER TORSO AND GROIN AREA, DOES NOT C/O ITCHING OR BURNING FROM THE RASH. PT HAS EXCORIATION UNDER BILATERAL BREAST AND FOLD OF STOMACH, BARIUM CREAM WILL BE APPLIED AFTER MORNING CARE. WILL CONTINUE TO MONITOR. CARRILLO ARSHAD ADIA
--- NOTE | 2019-06-01 09:42 | NUR ---
Dr. Harris notified of wound care recommendations.
--- NOTE | 2019-06-01 10:05 | NUR ---
TYLENOL MEDICATION EFFECTIVE, TEMP. 98.3. CARRILLO ARSHAD SPNRCC
--- NOTE | 2019-06-01 10:21 | NUR ---
MORNING CARE COMPLETE, PT UP IN CHAIR WATCHING TV. NO COMPLAINTS VOICED AT THIS TIME. [facility]
--- NOTE | 2019-06-01 10:30 | NUR ---
PODIATRY RESIDENT AND DR. DEUTSCH'S OFFICE BOTH NOTIFIED OF CONSULT
--- NOTE | 2019-06-01 11:58 | NUR ---
Nursing screen received and chart reviewed. Patient admitted for hallucinations with a recent proximal humerus fx. Patient would benefit from an OT order pending progress and medical status. Thank you. Patricia Haider, OTR/L
[2019-06-01 12:00] VITALS: BP 98/62
[2019-06-01 12:28] LABS: BASO # 0.1 10*3/uL (0.0-0.1); BASO % 0.3 % (0.0-1.0); EOS % 0.2 % (1.0-4.0); HEMATOCRIT 28.6 % (37.0-47.0); HEMOGLOBIN 8.9 g/dl (12.0-16.0); LYMPH # 2.1 10*3/uL (1.3-4.4); LYMPH % 10.2 % (27.0-41.0); MEAN CELL VOLUME 94.1 fl (81.0-99.0); MEAN CORPUSCULAR HGB 29.3 pg (27.0-31.0); MEAN CORPUSCULAR HGB CONC 31.1 g/dl (33.0-37.0); MEAN PLATELET VOLUME 10.1 fl (9.6-12.3); MONO % 4.8 % (3.0-9.0); NEUT # 17.2 10*3/uL (2.3-7.9); NEUT % 83.7 % (47.0-73.0); PLATELET COUNT AUTOMATED 188 10*3/uL (130-400); RED BLOOD COUNT 3.04 10*6/uL (4.10-5.10); RED CELL DISTRI WIDTH 15.5 % (0-14.5); WHITE BLOOD COUNT 20.6 10*3/uL (4.8-10.8)
--- NOTE | 2019-06-01 12:31 | NUR ---
MEDICATED FOR C/O PAIN IN LEFT ARM AND LEFT LEG, PT RATES A 6 ON A PAIN SCALE OF 10, PT REMAINS NPO, MEDICATED WITH JUST ENOUGH WATER TO GET PILL DOWN CARRILLO HERNANDEZ
[2019-06-01 12:47] LABS: POTASSIUM 4.3 mmol/L (3.5-5.1)
--- NOTE | 2019-06-01 13:30 | NUR ---
NORCO MEDICATION EFFECTIVE, PT RATES PAIN AT 2. CARRILLO ARSHAD ADIA
--- NOTE | 2019-06-01 13:57 | NUR ---
STOOL SENT TO LAB FOR C-DIFF CARRILLO HERNANDEZ
--- NOTE | 2019-06-01 14:12 | NUR ---
PT RESTING IN BED TALKING ON THE PHONE. NO COMPLAINTS VOICED AT THIS TIME. CARRILLO ARSHAD SPCC
[2019-06-01 16:00] VITALS: BP 96/43
--- NOTE | 2019-06-01 17:45 | NUR ---
MEDICATED WITH 2 TYLENOL FOR TEMP 101.5
--- NOTE | 2019-06-01 19:20 | NUR ---
REPORT RECEIVED FROM DAYLIGHT NURSE. PT LYING IN BED WATCHING TV. PT STATES "I DONT FEEL GOOD" HELPED PT REPOSITION. STATED THAT IT HELPED HER PAIN. WILL REASSESS. CALL LIGHT IN REACH.
[2019-06-01 20:00] VITALS: BP 106/53
--- NOTE | 2019-06-01 22:00 | NUR ---
PT MEDICATED WITH NORCO PER ORDER FOR 9/10 PAIN IN LEFT SHOULDER AND LEFT FOOT. WILL MONITOR EFFECTIVENESS.
[2019-06-02] VITALS: BP 100/45
--- NOTE | 2019-06-02 | NUR ---
NORCO APPEARS EFFECTIVE. PT SLEEPING AT THIS TIME.
--- NOTE | 2019-06-02 00:30 | NUR ---
DR. HEARN NOTIFIED OF COMPLETED IV FLUIDS. ORDERED A ONE TIME BAG AT 100CC/HR. NO OTHER ORDERS AT THIS TIME.
[2019-06-02 04:30] VITALS: BP 115/52
--- NOTE | 2019-06-02 05:02 | NUR ---
DR. ARAMBULA NOTIFIED REGARDING RASH ALL OVER PT BODY. PT WAS CONCERNED IT WAS SCABIES SHE WAS TREATING HERSELF AT HOME PER PODIATRY. UPON ASSESSMENT OF PT RASH, DR. ARAMBULA STATED THAT THIS RASH IS ABBEY JOHNSONS, NOT SCABIES.
[2019-06-02 07:06] LABS: BASO % 0.2 % (0.0-1.0); EOS # 0.4 10*3/uL (0.0-0.4); HEMATOCRIT 27.5 % (37.0-47.0); HEMOGLOBIN 8.5 g/dl (12.0-16.0); LYMPH # 1.8 10*3/uL (1.3-4.4); LYMPH % 10.3 % (27.0-41.0); MEAN CELL VOLUME 95.5 fl (81.0-99.0); MEAN CORPUSCULAR HGB 29.5 pg (27.0-31.0); MEAN CORPUSCULAR HGB CONC 30.9 g/dl (33.0-37.0); MEAN PLATELET VOLUME 10.4 fl (9.6-12.3); MONO # 0.7 10*3/uL (0.1-1.0); MONO % 4.2 % (3.0-9.0); NEUT # 14.5 10*3/uL (2.3-7.9); NEUT % 82.6 % (47.0-73.0); PLATELET COUNT AUTOMATED 199 10*3/uL (130-400); RED BLOOD COUNT 2.88 10*6/uL (4.10-5.10); RED CELL DISTRI WIDTH 15.6 % (0-14.5); WHITE BLOOD COUNT 17.6 10*3/uL (4.8-10.8)
[2019-06-02 07:26] LABS: ALBUMIN 2.2 gm/dl (3.1-4.5); CREATININE 2.03 mg/dL (0.55-1.02); PHOSPHOROUS 3.1 mg/dL (2.5-4.9); POTASSIUM 3.6 mmol/L (3.5-5.1)
--- NOTE | 2019-06-02 07:30 | NUR ---
PT RESTING IN BED. VOICES NO CONCERNS AT THIS TIME. RESPS EASY AND NON LABORED. NO S/S OF DISTRESS NOTED. VSS. WHITE BOARD UPDATED. CALL LIGHT WITHIN REACH.
[2019-06-02 07:34] LABS: THYROID STIM HORMONE (HS) 1.71 uIU/ml (0.358-4.75); TOTAL PROTEIN 6.8 gm/dL (6.4-8.2)
[2019-06-02 07:47] LABS: VITAMIN D, 25-HYDROXY 28.2 ng/mL (30-100)
[2019-06-02 08:00] VITALS: BP 103/51; BP 110/60
--- NOTE | 2019-06-02 08:59 | NUR ---
Shift chart check completed.
--- NOTE | 2019-06-02 10:00 | NUR ---
DR ROTHMAN IN TO SEE PT. PER PT SHE IS ALLERGIC TO VANCOMYCIN. STATED TO PUT VANC ON HOLD AND CONTACT DR DEUTSCH. ATTEMPTED TO REACH HER AND LEFT MESSAGE WITH HER OFFICE.
--- NOTE | 2019-06-02 10:30 | NUR ---
Torpedo Man in to talk to patient. Patient states lives at home with her . There are 2 steps in the home. Physician: Gaudencio Jackson Pharmacy: [facility] Home health services: none Patient's level of ADLs: minimal assistance Patient has working utilities: yes DME: walker, cane Follow-up physician's appointment after d/c: will be made by the hospitalist nurse director upon discharge Does patient want to access PORTAL?: no Discharge plan discussed with patient. She lives at home with her . She is independent in her ADLs and uses either a walker or a cane for ambulation. Discussed short term SNF and she is agreeable. When provided with a list of facilities she chose [facility] where she was last time she was discharged from the hospital. She states she knows her is not able to take care of her at this time as he is scheduled for a pacemaker. enterprise resource planner notified and following for referral to [facility]. EVA DALE
--- NOTE | 2019-06-02 11:00 | NUR ---
PT TAKEN OFF FLOOR TO CT
--- NOTE | 2019-06-02 11:51 | NUR ---
PT C/O 12/06 THROBBING LEG PAIN. MEDICATED PER ORDER. WILL MONITOR FOR RELIEF. CALL LIGHT WITHIN REACH.
--- NOTE | 2019-06-02 11:59 | NUR ---
Patient requesting a referral to [facility]. Contacted Christina via email and faxed referral. requires PT/OT evals; orders requested. Waiting on review.
[2019-06-02 12:00] VITALS: BP 102/56
--- NOTE | 2019-06-02 12:13 | NUR ---
DR MARTIN NOTIFIED OF CONSULT AND IN TO SEE PATIENT.STATED HE WOULD ORDER AN XRAY OF HER LEFT ARM
[2019-06-02 16:00] VITALS: BP 86/56; BP 98/70
--- NOTE | 2019-06-02 18:45 | NUR ---
PER DR DEUTSCH IT IS FINE FOR PT TO TAKE ORAL VANC REGARDLESS OF ALLERGY
[2019-06-02 20:00] VITALS: BP 103/50
--- NOTE | 2019-06-02 20:43 | NUR ---
PATIENT IS AAOX3 WATCHING TV IN CHAIR WITH EASY AND REGULAR RESPERS. ASSESSMENT IS COMPLETE WITH NO S/S OF DISTRESS NOTED AT THIS TIME. PATIENT C/O PAIN TO LEFT LEG RATING AN 8/10. BEDSIDE GLUCOSE 186. CALL LIGHT IS WITHIN REACH, WILL CONTINUE TO MONITOR. SEE SHIFT ASSESSMENT.
--- NOTE | 2019-06-02 21:28 | NUR ---
PRN NORCO GIVEN LEFT ARM/LEG PAIN RATING A 9/10. WILL MONITOR EFFECT OF MEDICATION.
--- NOTE | 2019-06-02 22:30 | NUR ---
PRN NORCO EFFECTIVE PER PATIENT. CALL LIGHT IS WITHIN REACH.
[2019-06-03] VITALS: BP 91/45
--- NOTE | 2019-06-03 00:14 | NUR ---
PT MEDICATED W/TYLENOL FOR C/O H/A 12/06. PT SITTING IN RECLINER CHAIR IN ROOM. CALL LIGHT IN REACH.
--- NOTE | 2019-06-03 01:21 | NUR ---
PRN NORCO GIVEN FOR LEFT SHOULDER/ARM PAIN RATING A 9/10. WHILE FLUSING IV IN RIGHT HAND NOTICED IT WAS LEAKING. NEW #22 IV STARTED IN RIGHT ARM ACCORDING TO POLICY AND PROCEDURE. PATIENT TOLERATED WELL. PRN MORPHINE GIVEN. CALL LIGHT IS WITHIN REACH, WILL MONITOR EFFECT OF MEDICATION.
--- NOTE | 2019-06-03 06:35 | NUR ---
IV IN RIGHT ARM PULLED OUT. NEW #22G IV STARTED IN RIGHT HAND ACCORDING TO POLICY AND PROCEDURE. PATIENT TOLERATED WELL, CALL LIGHT IS WITHIN REACH.
[2019-06-03 07:33] LABS: BASO % 0.2 % (0.0-1.0); EOS # 0.6 10*3/uL (0.0-0.4); EOS % 4.4 % (1.0-4.0); HEMATOCRIT 26.6 % (37.0-47.0); HEMOGLOBIN 8.3 g/dl (12.0-16.0); LYMPH # 2.7 10*3/uL (1.3-4.4); LYMPH % 18.8 % (27.0-41.0); MEAN CORPUSCULAR HGB 29.3 pg (27.0-31.0); MEAN CORPUSCULAR HGB CONC 31.2 g/dl (33.0-37.0); MEAN PLATELET VOLUME 10.2 fl (9.6-12.3); MONO # 0.6 10*3/uL (0.1-1.0); MONO % 4.4 % (3.0-9.0); NEUT # 10.3 10*3/uL (2.3-7.9); NEUT % 71.6 % (47.0-73.0); PLATELET COUNT AUTOMATED 204 10*3/uL (130-400); RED BLOOD COUNT 2.83 10*6/uL (4.10-5.10); RED CELL DISTRI WIDTH 15.7 % (0-14.5); WHITE BLOOD COUNT 14.4 10*3/uL (4.8-10.8)
[2019-06-03 08:00] VITALS: BP 98/64
[2019-06-03 08:54] LABS: CREATININE 1.82 mg/dL (0.55-1.02)
--- NOTE | 2019-06-03 09:17 | NUR ---
PT C/O 10/06 LEG PAIN. MEDICATED PER ORDER. WILL CONTINUE TO MONITOR FOR RELEIF. VOICES NO OTHER CONCERNS AT THIS TIME. RESTING IN CHAIR. CALL LIGHT WITHIN REACH. RESPS EASY AND NON LABORED.
--- NOTE | 2019-06-03 10:31 | NUR ---
NORCO EFFECTIVE PER PT
--- NOTE | 2019-06-03 10:53 | NUR ---
Referral emailed to Christina at [facility], still waiting for availablility and PT/OT evals
[2019-06-03 12:00] VITALS: BP 103/54
--- NOTE | 2019-06-03 13:38 | NUR ---
PT C/O 11/05 LEG PAIN. MEDICATED PER ORDER. WILL MONITOR FOR RELIEF. VOICES NO OTHER CONCERNS AT THIS TIME. RESTING IN BED. CALL LIGHT WITHIN REACH
--- NOTE | 2019-06-03 13:58 | NUR ---
Spoke with [facility] and ed for [facility]. With patient in isolation for C-diff they do not have a private room available. Also after reviewing the MD progress notes they do not feel patient has a true need for [facility] and will most likely be denied through the [place] pass/rr system. Waiting on therapy evals.
--- NOTE | 2019-06-03 14:20 | NUR ---
Occupational therapy orders received and OT evaluation completed in full on floor four. Patient precautions include fall risk, LUE NWB with sling due to left proximal humerus fx, L LE WBAT with cam boot, straight cane use, C-Diff, and contact plus precautions. Per OT eval, OT recommends a SNF. If refused, home with SN, OT, and PT with 24/7 supervision assistance. Patient complexity is high, 00238. Thank you. Patricia Haider, OTR/L
--- NOTE | 2019-06-03 15:20 | NUR ---
DR MARTIN OFFICE CALLED. STATED PT HAS A NEW BRACE COMING IN TOMORROW MORNING.
[2019-06-03 16:00] VITALS: BP 98/41
--- NOTE | 2019-06-03 16:15 | NUR ---
PHYSICAL THERAPY Isatu completed moderate level of complexity 21597 full report to follow Recomend SNF at discharge. PT to work on transfers,balance,amb,safety Lisa Baum PT
--- NOTE | 2019-06-03 17:40 | NUR ---
OT C/O 01/06 ARM/LEG PAIN. MEDICATED PER ORDER. WILL MONITOR FOR RELIEF. VOICES NO OTHER CONCERNS AT THIS TIME. RESPS EASY AND NON LABORED. BP 132/60. CALL LIGHT WITHIN REACH.
[2019-06-03 17:56] VITALS: BP 132/60
[2019-06-03 20:00] VITALS: BP 96/55
--- NOTE | 2019-06-03 21:36 | NUR ---
PATIENT REQUESTED PAIN MEDICINE, STATES HER PAIN TO HER LT ARM IS 7/10. MORPHINE GIVEN. WILL MONITOR AND REASSESS.
--- NOTE | 2019-06-03 23:07 | NUR ---
MORPHINE EFFECITVE FOR A SHORT TIME, PATIENT REQUESTED A PAIN PILL. NORCO WAS GIVEN, PATIENT ALSO REQUESTED BENADRYL TALKED TO DR. HEARN, WILL PUT IN ORDER.
--- NOTE | 2019-06-03 23:36 | NUR ---
PATIENT IS RESTING IN CHAIR WATCHING TV WITH EASY AND REGULAR RESPERS ON ROOM AIR. ASSESSMENT IS COMPLETE WITH NO S/S OF DISTRESS NOTED AT THIS TIME. ONE TIME DOSE OF BENADRYL GIVEN FOR C/O ITCHING. CALL LIGHT IS WITHIN REACH, WILL CONTINUE TO MONITOR.
[2019-06-04] VITALS: BP 127/56
--- NOTE | 2019-06-04 01:31 | NUR ---
PRN MORHINE AND TYLENOL GIVEN AT THIS TIME FOR C/O LEFT SHOULDER PAIN RATING A 8/10, SLING ADJUSTED D/T C/O TENSION ON NECK. CALL LIGHT IS WITHIN REACH, WILL MONITOR EFFECT.
--- NOTE | 2019-06-04 02:11 | NUR ---
SLEEPING WITH EASY AND REGULAR RESPERS ON ROOM AIR IN CHAIR. CALL LIGHT IS WITHIN REACH. PRN MORPHINE EFFECTIVE.
--- NOTE | 2019-06-04 04:07 | NUR ---
SLEEPING WITH EASY AND REGULAR RESPERS ON ROOM AIR. CALL LIGHT IS WITHIN REACH.
--- NOTE | 2019-06-04 04:19 | NUR ---
CHART CHECK COMPLETE.
--- NOTE | 2019-06-04 05:13 | NUR ---
0600 MEDICATIONS ADMINISTERED WELL PRN TYLENOL AND FLEXERIL FOR C/O LEFT SHOULDER PAIN RATING A 6/10. CALL LIGHT IS WITHIN REACH, WILL MONITOR EFFECT.
[2019-06-04 08:00] VITALS: BP 109/48
[2019-06-04 08:28] LABS: BASO % 0.3 % (0.0-1.0); EOS # 0.6 10*3/uL (0.0-0.4); EOS % 5.4 % (1.0-4.0); HEMATOCRIT 26.9 % (37.0-47.0); HEMOGLOBIN 8.2 g/dl (12.0-16.0); LYMPH # 1.9 10*3/uL (1.3-4.4); LYMPH % 17.7 % (27.0-41.0); MEAN CELL VOLUME 96.4 fl (81.0-99.0); MEAN CORPUSCULAR HGB 29.4 pg (27.0-31.0); MEAN CORPUSCULAR HGB CONC 30.5 g/dl (33.0-37.0); MEAN PLATELET VOLUME 10.5 fl (9.6-12.3); MONO # 0.5 10*3/uL (0.1-1.0); MONO % 4.3 % (3.0-9.0); NEUT # 7.8 10*3/uL (2.3-7.9); NEUT % 71.9 % (47.0-73.0); PLATELET COUNT AUTOMATED 236 10*3/uL (130-400); RED BLOOD COUNT 2.79 10*6/uL (4.10-5.10); RED CELL DISTRI WIDTH 15.9 % (0-14.5); WHITE BLOOD COUNT 10.8 10*3/uL (4.8-10.8)
--- NOTE | 2019-06-04 08:58 | NUR ---
OT NOTE Pt was seen this A.M. 1:1 for 30 minute OT session. Upon arrival pt was sitting upright in the recliner. Pt identified by name and and had complaints of 5-6/10 L shoulder pain. Pt presented to therapy with sling on LUE which pt was educated on proper fit and positioning and verbalized understanding. Pt then donned cam boot to LLE with modA. Sit to stand completed from chair level with maxA X 2 and use of straight cane for UE support. Functional mobility was then completed into the bathroom with CGA and use of straight cane in her RUE. Pt attempted to complete transfer onto standard commode for increased I and pt was unable to complete transfer due to low surface and being unable to use grab bar due to being placed on her L side. Therapist then placed an elevated commode seat onto the standard commode and pt was able to complete transfer on/off elevated commode with Herber. Pt donned underpants while seated with modA due to size of cam boot and one handed technique. Functional mobility completed back to the recliner with CGA and use of straight cane. Challenged pt's static standing tolerance needed for increased I in self care tasks and functional transfers, pt was able to tolerate aprox 4 mnutes at a time before sitting due to fatigue. Pt was left sitting upright in the recliner with call light in hand, tray table in place, and body alarm activated for safety. Continue with rec D/C plan to SNF. NENITA Villarreal
[2019-06-04 09:00] LABS: ALBUMIN 2.6 gm/dl (3.1-4.5); CREATININE 1.41 mg/dL (0.55-1.02); POTASSIUM 3.3 mmol/L (3.5-5.1); TOTAL PROTEIN 7.1 gm/dL (6.4-8.2)
--- NOTE | 2019-06-04 09:00 | NUR ---
Camp Guard in to see patient. Discussed the possibility of her not being appropriate for SNF and what would another option be if she was denied. She states she has had home health in the past. When asked what company she stated [facility] and would like their services when discharged if needed. Discharge plan undecided at this time.
--- NOTE | 2019-06-04 09:25 | NUR ---
MEDICATED WITH PRN IV MORPHINE FOR LEFT SHOULDER PAIN.
--- NOTE | 2019-06-04 09:33 | NUR ---
PHYSICAL THERAPY TREATMENT TIME: 8:55 AM 17 MINUTES Patient presented to therapy in supine with head of bed elevated and bed alarm activated. Patient gives informed consent for treatment. Patient was identified by name and on wristband. Patient performed supine to sitting at EOB with MIN A X 2. Patient performed sat on EOB with SBA. Patient performed sit to stand from EOB with MAX A X 2. Patient cannot transfer to sitting on a low commode. Patient sit to stand off of raised commode seat MIN A X 2. Patient performed ambulation with standard cane with CGA X 1 for 45' x 1 and no LOB. Patient required verbal cues for upright posture. Patient is in isolation for scabies. Patient transferred to bedside chair with MIN A X 1 AND verbal cues for putting hands back on arrmrests of chair. Patient was left in bedside chair with call light within reach and chair alarm tested and attached to patient. Patient was 1:1 with s BRUSH HAND for 17 minutes total. TESFAYE FERMIN BRUSH HAND
--- NOTE | 2019-06-04 10:30 | NUR ---
PRN IV MORPHINE EFFECTIVE FOR A SHORT TIME, PER PATIENT.
--- NOTE | 2019-06-04 11:35 | NUR ---
MEDICATED WITH PRN PO NORCO FOR LEFT SHOULDER PAIN.
[2019-06-04 12:00] VITALS: BP 115/48
--- NOTE | 2019-06-04 12:35 | NUR ---
PRN PO NORCO SOMEWHAT EFFECTIVE, PER PATIENT.
--- NOTE | 2019-06-04 13:36 | NUR ---
MEDICATED WITH PRN IV MORPHINE FOR LEFT SHOULDER PAIN. PER PATIENT AND DAUGHTER, RASH TO BODY IS INCREASING IN SEVERITY, POSSIBLY DUE TO ORAL PO VANCOMYCIN. PHONED DR. ROTHMAN RE: REQUEST FOR BENADRYL WHILE TAKING THE PO VANCOMYCIN.
[2019-06-04] MEDS ORDERED: VANCOMYCIN HCL250 MG PO (15:53)
[2019-06-04 16:00] VITALS: BP 112/52
--- NOTE | 2019-06-04 16:28 | NUR ---
MEDICATED WITH PRN PO NORCO FOR LEFT SHOULDER PAIN.
--- NOTE | 2019-06-04 16:36 | NUR ---
PREPARING PATIENT FOR DISCHARGE HOME WITH [facility]/VISITING NURSES/PT.
--- NOTE | 2019-06-04 16:45 | NUR ---
REFERRAL FAXED TO [facility].
--- NOTE | 2019-06-04 18:00 | NUR ---
BULKY GAUZE DRESSING TO LEFT LOWER LEG PER PODIATRY WITH ORTHO BOOT INTACT UNABLE TO TAKE PHOTOS OF THIS WOUND, ALL OTHER PHOTOS OBTAINED PRIOR TO DISCHARGE.
--- NOTE | 2019-06-04 18:03 | NUR ---
PRN NORCO NOT EFFECTIVE, ADMINISTERED PRN IV MORPHINE FOR LEFT SHOULDER PAIN. ALSO GAVE PRN PO BENADRYL WITH PO VANCOMYCIN FOR RED RASH OVER BODY.
--- NOTE | 2019-06-04 18:45 | NUR ---
Discharge instructions reviewed with patient/family. Patient receptive and verbalizes understanding. Follow-up care arranged. Written instructions given to patient/family. PATIENT DISCHARGED TO [facility] BY WHEELCHAIR, ACCOMPANIED BY [facility], FOR TRANSPORT HOME BY PRIVATE VEHICLE. OTIS DAY
--- NOTE | 2019-06-05 07:55 | NUR ---
PHYSICAL THERAPY CO-SIGN I approve of the Physical Therapy notes written above. Lisa Baum PT
--- NOTE | 2019-06-05 08:16 | NUR ---
OCCUPATIONAL THERAPY CO-SIGN I approve of the Occupational Therapy notes written above. LUCILLE PARDO OTR/Kumar
== END 2019-06-04 18:45 | disposition home health service (06) | DRG 371 ==
LOC: ED 23:05 → EDHOLD 06-01 04:42 → 4E 06-01 04:42
PROVIDERS: Emergency Medicine; Family Medicine; Internal Medicine; ADMIT Internal Medicine
DX: A04.72 Enterocolitis due to Clostridium difficile, not specified as recurrent (principal); N17.0 Acute kidney failure with tubular necrosis; E43 Unspecified severe protein-calorie malnutrition; E87.1 Hypo-osmolality and hyponatremia; R44.3 Hallucinations, unspecified; R65.10 Systemic inflammatory response syndrome (SIRS) of non-infectious origin without acute organ dysfunction; J98.11 Atelectasis; E87.5 Hyperkalemia; I25.10 Atherosclerotic heart disease of native coronary artery without angina pectoris; E87.8 Other disorders of electrolyte and fluid balance, not elsewhere classified; R70.0 Elevated erythrocyte sedimentation rate; K21.9 Gastro-esophageal reflux disease without esophagitis; M19.90 Unspecified osteoarthritis, unspecified site; E11.51 Type 2 diabetes mellitus with diabetic peripheral angiopathy without gangrene; E11.42 Type 2 diabetes mellitus with diabetic polyneuropathy; E66.01 Morbid (severe) obesity due to excess calories; E11.65 Type 2 diabetes mellitus with hyperglycemia; I12.9 Hypertensive chronic kidney disease with stage 1 through stage 4 chronic kidney disease, or unspecified chronic kidney disease; N18.3 Chronic kidney disease, stage 3 (moderate); M79.7 Fibromyalgia; S91.102A Unspecified open wound of left great toe without damage to nail, initial encounter; E11.22 Type 2 diabetes mellitus with diabetic chronic kidney disease; X58.XXXA Exposure to other specified factors, initial encounter; Y93.89 Activity, other specified; Y92.89 Other specified places as the place of occurrence of the external cause; Y99.8 Other external cause status; Z79.4 Long term (current) use of insulin; Z68.31 Body mass index [BMI] 31.0-31.9, adult; Z88.2 Allergy status to sulfonamides; Z88.1 Allergy status to other antibiotic agents; Z88.0 Allergy status to penicillin; Z88.8 Allergy status to other drugs, medicaments and biological substances; Z91.041 Radiographic dye allergy status; Z91.09 Other allergy status, other than to drugs and biological substances; Z95.5 Presence of coronary angioplasty implant and graft; Z89.429 Acquired absence of other toe(s), unspecified side; Z95.1 Presence of aortocoronary bypass graft; Z90.49 Acquired absence of other specified parts of digestive tract; Z98.51 Tubal ligation status; Z90.79 Acquired absence of other genital organ(s); Z82.49 Family history of ischemic heart disease and other diseases of the circulatory system; Z80.8 Family history of malignant neoplasm of other organs or systems; Z83.3 Family history of diabetes mellitus; Z82.3 Family history of stroke; Z86.73 Personal history of transient ischemic attack (TIA), and cerebral infarction without residual deficits; Z79.899 Other long term (current) drug therapy; Z79.82 Long term (current) use of aspirin; Z79.02 Long term (current) use of antithrombotics/antiplatelets

== ENCOUNTER → 2019-06-30 | Outpatient (CLI) | payer MEDICAID ==
[~2019-06-30] MED LIST changes: +VANCOMYCIN HCL250 MG PO
== END | disposition home or self-care (01) ==
LOC: ORTHO 06-02 16:48
DX: S42.352D Displaced comminuted fracture of shaft of humerus, left arm, subsequent encounter for fracture with routine healing (principal); X58.XXXD Exposure to other specified factors, subsequent encounter

== ENCOUNTER → 2019-09-28 | Outpatient (CLI) | payer MEDICARE | LOC: RESCLI 09:31 | DX: E11.22 Type 2 diabetes mellitus with diabetic chronic kidney disease (principal); N18.3 Chronic kidney disease, stage 3 (moderate); E55.9 Vitamin D deficiency, unspecified; K21.9 Gastro-esophageal reflux disease without esophagitis; K12.2 Cellulitis and abscess of mouth; I25.10 Atherosclerotic heart disease of native coronary artery without angina pectoris; F41.8 Other specified anxiety disorders; D50.9 Iron deficiency anemia, unspecified; G62.9 Polyneuropathy, unspecified; M79.7 Fibromyalgia; I48.0 Paroxysmal atrial fibrillation; Z79.4 Long term (current) use of insulin; Z95.1 Presence of aortocoronary bypass graft ==

== ENCOUNTER → 2019-10-01 | Outpatient (CLI) | payer MEDICARE ==
[2019-10-01 14:27] LABS: BILIRUBIN 1+ (NEGATIVE); BLOOD NEGATIVE (NEGATIVE); CLARITY CLEAR (CLEAR); COLOR YELLOW (YELLOW); GLUCOSE NEGATIVE (NEGATIVE); KETONE 1+ (NEGATIVE)
[2019-10-01 14:28] LABS: BACTERIA 1+; EPITHELIAL CELLS 31-40; LEUKO ESTERASE 1+ (NEGATIVE); NITRITE NEGATIVE (NEGATIVE); UROBILINOGEN 0.2 E.U./dl (0.2-1.0)
[2019-10-02 10:06] LABS: CREATININE,URINE 256.8 mg/dL (Not Estab.)
== END | disposition home or self-care (01) ==
LOC: LAB 12:58 → US 13:00
PROVIDERS: Family Medicine
DX: E11.22 Type 2 diabetes mellitus with diabetic chronic kidney disease (principal); N18.3 Chronic kidney disease, stage 3 (moderate); Z79.899 Other long term (current) drug therapy

== ENCOUNTER → 2019-10-27 | Outpatient (CLI) | payer MEDICARE ==
[2019-10-27 12:23] LABS: HEMATOCRIT 38.3 % (37.0-47.0); MEAN CELL VOLUME 94.6 fl (81.0-99.0); MEAN CORPUSCULAR HGB 30.9 pg (27.0-31.0); MEAN CORPUSCULAR HGB CONC 32.6 g/dl (33.0-37.0); PLATELET COUNT AUTOMATED 161 10*3/uL (130-400); RED BLOOD COUNT 4.05 10*6/uL (4.10-5.10); RED CELL DISTRI WIDTH 13.2 % (0-14.5)
[2019-10-27 12:33] LABS: ALBUMIN 3.6 gm/dl (3.1-4.5); CREATININE 1.2 mg/dL (0.55-1.02); POTASSIUM 4.5 mmol/L (3.5-5.1); TOTAL PROTEIN 8.6 gm/dL (6.4-8.2)
[2019-10-27 12:53] LABS: BASOPHILS 1 % (0-1); PLATELET SUFFICIENCY NORMAL (NORMAL); TOTAL CELLS COUNTED 100 #CELLS
== END | disposition home or self-care (01) ==
LOC: LAB 11:44
PROVIDERS: Podiatrist Foot & Ankle Surgery
DX: L97.522 Non-pressure chronic ulcer of other part of left foot with fat layer exposed (principal); I87.2 Venous insufficiency (chronic) (peripheral); E10.621 Type 1 diabetes mellitus with foot ulcer

== ENCOUNTER → 2020-03-03 | Outpatient (CLI) | payer MEDICARE ==
[~2020-03-03] MED LIST changes: +DILTIAZEM HCL120 M1 PO; +NEURONTIN800 MG PO; +VICTOZA 2-0.6 MG/0.1 SQ; +XARELTO10 MG PO
== END | disposition home or self-care (01) ==
LOC: RESCLI 03-02 05:10
PROVIDERS: ATTEND Student in an Organized Health Care Education/Training Program
DX: I25.10 Atherosclerotic heart disease of native coronary artery without angina pectoris (principal); F41.8 Other specified anxiety disorders; D50.9 Iron deficiency anemia, unspecified; M79.7 Fibromyalgia; I48.0 Paroxysmal atrial fibrillation; E11.22 Type 2 diabetes mellitus with diabetic chronic kidney disease; N18.9 Chronic kidney disease, unspecified; G62.9 Polyneuropathy, unspecified; G25.81 Restless legs syndrome; E54 Ascorbic acid deficiency; M79.89 Other specified soft tissue disorders; Z01.818 Encounter for other preprocedural examination; Z79.899 Other long term (current) drug therapy; Z98.890 Other specified postprocedural states; Z95.828 Presence of other vascular implants and grafts; Z88.8 Allergy status to other drugs, medicaments and biological substances

== ENCOUNTER → 2020-03-04 | Outpatient (CLI) | payer MEDICARE | END | disposition home or self-care (01) | LOC: COVID19 05:39 | PROVIDERS: ATTEND Podiatrist | DX: Z01.812 Encounter for preprocedural laboratory examination (principal); Z20.828 Contact with and (suspected) exposure to other viral communicable diseases ==

== ENCOUNTER → 2020-03-09 | Day surgery (SDC) | payer MEDICARE ==
[2020-03-04 13:46] VITALS: BP 114/64
[2020-03-04 14:52] LABS: BASO % 0.4 % (0.0-1.0); EOS # 0.2 10*3/uL (0.0-0.4); EOS % 2.7 % (1.0-4.0); HEMATOCRIT 37.6 % (37.0-47.0); LYMPH # 1.9 10*3/uL (1.3-4.4); LYMPH % 25.2 % (27.0-41.0); MEAN CELL VOLUME 95.4 fl (81.0-99.0); MEAN CORPUSCULAR HGB 30.5 pg (27.0-31.0); MEAN CORPUSCULAR HGB CONC 31.9 g/dl (33.0-37.0); MEAN PLATELET VOLUME 9.7 fl (9.6-12.3); MONO # 0.3 10*3/uL (0.1-1.0); MONO % 3.9 % (3.0-9.0); NEUT % 67.5 % (47.0-73.0); PLATELET COUNT AUTOMATED 187 10*3/uL (130-400); RED BLOOD COUNT 3.94 10*6/uL (4.10-5.10); RED CELL DISTRI WIDTH 12.7 % (0-14.5); WHITE BLOOD COUNT 7.4 10*3/uL (4.8-10.8)
[2020-03-04 15:05] LABS: ACT PARTIAL THROMBO TIME 26.5 SECONDS (20.0-32.1)
[2020-03-04 15:07] LABS: CREATININE 1.32 mg/dL (0.55-1.02); POTASSIUM 4.5 mmol/L (3.5-5.1)
[~2020-03-09] VITALS: Ht 175.2 cm; Wt 101.2 kg
[2020-03-09] VITALS (7 sets, daily range): BP systolic 118–149; BP diastolic 58–77
== END ==
LOC: SDC 03-04 13:15
PROVIDERS: ATTEND Podiatrist
DX: M20.12 Hallux valgus (acquired), left foot (principal); M06.9 Rheumatoid arthritis, unspecified; M20.5X2 Other deformities of toe(s) (acquired), left foot; E11.22 Type 2 diabetes mellitus with diabetic chronic kidney disease; F41.8 Other specified anxiety disorders; D50.9 Iron deficiency anemia, unspecified; I48.0 Paroxysmal atrial fibrillation; K21.9 Gastro-esophageal reflux disease without esophagitis; G25.81 Restless legs syndrome; E54 Ascorbic acid deficiency; E11.40 Type 2 diabetes mellitus with diabetic neuropathy, unspecified; I25.10 Atherosclerotic heart disease of native coronary artery without angina pectoris; Z79.01 Long term (current) use of anticoagulants; M79.7 Fibromyalgia; Z86.73 Personal history of transient ischemic attack (TIA), and cerebral infarction without residual deficits; N18.30 Chronic kidney disease, stage 3 unspecified; Z95.5 Presence of coronary angioplasty implant and graft; Z90.49 Acquired absence of other specified parts of digestive tract

== ENCOUNTER 2020-03-16 14:47 | Emergency (ER) | payer MEDICARE ==
[~2020-03-16] VITALS: Ht 175.2 cm; Wt 55.8 kg
[~2020-03-16 14:47] MED LIST changes: -DILTIAZEM HCL120 M1 PO; -NEURONTIN800 MG PO; -VICTOZA 2-0.6 MG/0.1 SQ
[2020-03-16 16:38] LABS: BASO % 0.3 % (0.0-1.0); EOS # 0.1 10*3/uL (0.0-0.4); EOS % 1.3 % (1.0-4.0); HEMATOCRIT 28.5 % (37.0-47.0); LYMPH % 10.3 % (27.0-41.0); MEAN CELL VOLUME 96.6 fl (81.0-99.0); MEAN CORPUSCULAR HGB 30.8 pg (27.0-31.0); MEAN CORPUSCULAR HGB CONC 31.9 g/dl (33.0-37.0); MEAN PLATELET VOLUME 10.1 fl (9.6-12.3); MONO # 0.6 10*3/uL (0.1-1.0); MONO % 5.8 % (3.0-9.0); NEUT # 8.2 10*3/uL (2.3-7.9); NEUT % 81.7 % (47.0-73.0); PLATELET COUNT AUTOMATED 192 10*3/uL (130-400); RED BLOOD COUNT 2.95 10*6/uL (4.10-5.10)
[2020-03-16 16:44] LABS: BILIRUBIN Negative (Negative); BLOOD 1+ (Negative); CLARITY Clear (Clear); COLOR Yellow (Yellow); GLUCOSE 3+ (Negative); KETONE Negative (Negative); LEUKO ESTERASE Negative (Negative); NITRITE Negative (Negative); SPECIFIC GRAVITY 1.025 (1.001-1.030); UROBILINOGEN 0.2 E.U./dl (0.0-1.0)
[2020-03-16 16:52] LABS: ALBUMIN 2.7 gm/dl (3.1-4.5); CREATININE 1.73 mg/dL (0.55-1.02); POTASSIUM 4.6 mmol/L (3.5-5.1); TOTAL PROTEIN 7.7 gm/dL (6.4-8.2)
[2020-03-16 16:58] LABS: BACTERIA TRACE
[2020-03-16 17:28] VITALS: BP 114/51
[2020-03-26] MEDS ORDERED: NEURONTIN800 MG PO (09:54)
[2020-05-02] MEDS ORDERED: VICTOZA 2-0.6 MG/0.1 SQ (09:34)
== END 2020-03-16 19:34 | disposition home or self-care (01) ==
LOC: ED 14:47
PROVIDERS: Family Medicine
DX: E11.65 Type 2 diabetes mellitus with hyperglycemia (principal); I25.10 Atherosclerotic heart disease of native coronary artery without angina pectoris; J44.9 Chronic obstructive pulmonary disease, unspecified; Z79.899 Other long term (current) drug therapy; Z79.4 Long term (current) use of insulin

== ENCOUNTER 2020-03-17 16:42 | Inpatient (IN) | payer MEDICARE ==
[~2020-03-17] VITALS: Ht 175.2 cm; Wt 99.8 kg
[2020-03-17 16:43] VITALS: BP 142/80
[2020-03-17 19:05] LABS: BASO % 0.3 % (0.0-1.0); EOS # 0.1 10*3/uL (0.0-0.4); EOS % 1.5 % (1.0-4.0); HEMATOCRIT 26.9 % (37.0-47.0); LYMPH # 1.4 10*3/uL (1.3-4.4); LYMPH % 15.3 % (27.0-41.0); MEAN CELL VOLUME 98.2 fl (81.0-99.0); MEAN CORPUSCULAR HGB 30.7 pg (27.0-31.0); MEAN CORPUSCULAR HGB CONC 31.2 g/dl (33.0-37.0); MEAN PLATELET VOLUME 10.5 fl (9.6-12.3); MONO # 0.7 10*3/uL (0.1-1.0); MONO % 7.5 % (3.0-9.0); NEUT # 6.6 10*3/uL (2.3-7.9); NEUT % 74.7 % (47.0-73.0); PLATELET COUNT AUTOMATED 192 10*3/uL (130-400); RED BLOOD COUNT 2.74 10*6/uL (4.10-5.10); RED CELL DISTRI WIDTH 13.1 % (0-14.5); WHITE BLOOD COUNT 8.8 10*3/uL (4.8-10.8)
[2020-03-17 19:21] LABS: ACT PARTIAL THROMBO TIME 28.5 SECONDS (20.0-32.1); INTERNATIONAL NORM RATIO 1.1 (2.0-3.5)
[2020-03-17 19:22] LABS: ALBUMIN 2.5 gm/dl (3.1-4.5); ALKALINE PHOSPHATASE 214 U/L (45-117); BUN 26 mg/dl (7-24); CHLORIDE 97 mmol/L (98-107); CREATININE 1.87 mg/dL (0.55-1.02); LIPASE 48 U/L (73-393); POTASSIUM 4.6 mmol/L (3.5-5.1); SGOT/AST 24 IU/L (3-35); SGPT/ALT 73 U/L (12-78); SODIUM 130 mmol/L (136-145); TOTAL PROTEIN 7.2 gm/dL (6.4-8.2); TROPONIN I < 0.015 ng/ml (<0.045)
[2020-03-17 22:48] VITALS: BP 120/60
[2020-03-17 23:40] VITALS: BP 113/63
[2020-03-18 02:37] LABS: BILIRUBIN Negative (Negative); BLOOD Negative (Negative); CLARITY Clear (Clear); COLOR Yellow (Yellow); GLUCOSE 3+ (Negative); KETONE Negative (Negative); LEUKO ESTERASE 2+ (Negative); NITRITE Negative (Negative); SPECIFIC GRAVITY 1.015 (1.001-1.030); UROBILINOGEN 0.2 E.U./dl (0.0-1.0)
[2020-03-18 02:48] LABS: BACTERIA 1+; WBC 21-30 wbc/hpf (0-5)
[2020-03-18 04:02] VITALS: BP 97/53
[2020-03-18 07:59] LABS: BASO % 0.3 % (0.0-1.0); EOS # 0.2 10*3/uL (0.0-0.4); EOS % 4.1 % (1.0-4.0); LYMPH # 1.1 10*3/uL (1.3-4.4); LYMPH % 18.4 % (27.0-41.0); MEAN CORPUSCULAR HGB 30.7 pg (27.0-31.0); MEAN CORPUSCULAR HGB CONC 30.7 g/dl (33.0-37.0); MEAN PLATELET VOLUME 10.7 fl (9.6-12.3); MONO # 0.2 10*3/uL (0.1-1.0); MONO % 3.4 % (3.0-9.0); NEUT # 4.3 10*3/uL (2.3-7.9); NEUT % 73.3 % (47.0-73.0); PLATELET COUNT AUTOMATED 185 10*3/uL (130-400); RED CELL DISTRI WIDTH 13.1 % (0-14.5); WHITE BLOOD COUNT 5.8 10*3/uL (4.8-10.8)
[2020-03-18 08:00] VITALS: BP 106/81
[2020-03-18] MEDS ORDERED: DILTIAZEM HCL120 M1 PO (08:05)
[2020-03-18 08:45] LABS: ALBUMIN 2.6 gm/dl (3.1-4.5); CREATININE 1.43 mg/dL (0.55-1.02); FREE T4 1.15 ng/dl (0.76-1.46); POTASSIUM 3.9 mmol/L (3.5-5.1); TOTAL PROTEIN 6.4 gm/dL (6.4-8.2)
[2020-03-18 08:50] LABS: THYROID STIM HORMONE (HS) 0.76 uIU/ml (0.358-4.75)
[2020-03-18 08:57] LABS: VITAMIN D, 25-HYDROXY 21.5 ng/mL (30-100)
[2020-03-18 12:00] VITALS: BP 118/76
[2020-03-18 16:00] VITALS: BP 92/76
[2020-03-18 20:00] VITALS: BP 89/40
[2020-03-19] VITALS: BP 113/67
[2020-03-19 08:00] VITALS: BP 119/46
[2020-03-19 08:10] LABS: CREATININE 1.32 mg/dL (0.55-1.02); POTASSIUM 3.9 mmol/L (3.5-5.1)
[2020-03-19 12:00] VITALS: BP 100/64
[2020-03-19 16:00] VITALS: BP 94/46
[2020-03-19 20:00] VITALS: BP 113/52
[2020-03-20] VITALS: BP 94/52
[2020-03-20 04:00] VITALS: BP 109/58
[2020-03-20 06:44] LABS: BASO % 0.5 % (0.0-1.0); EOS # 0.3 10*3/uL (0.0-0.4); EOS % 4.9 % (1.0-4.0); HEMATOCRIT 26.8 % (37.0-47.0); LYMPH # 1.6 10*3/uL (1.3-4.4); LYMPH % 27.5 % (27.0-41.0); MEAN CELL VOLUME 97.8 fl (81.0-99.0); MEAN CORPUSCULAR HGB 30.7 pg (27.0-31.0); MEAN CORPUSCULAR HGB CONC 31.3 g/dl (33.0-37.0); MEAN PLATELET VOLUME 10.1 fl (9.6-12.3); MONO # 0.3 10*3/uL (0.1-1.0); MONO % 5.2 % (3.0-9.0); NEUT # 3.5 10*3/uL (2.3-7.9); NEUT % 60.9 % (47.0-73.0); PLATELET COUNT AUTOMATED 232 10*3/uL (130-400); RED BLOOD COUNT 2.74 10*6/uL (4.10-5.10); RED CELL DISTRI WIDTH 13.2 % (0-14.5); WHITE BLOOD COUNT 5.8 10*3/uL (4.8-10.8)
[2020-03-20 06:56] LABS: CREATININE 1.18 mg/dL (0.55-1.02); POTASSIUM 3.8 mmol/L (3.5-5.1)
[2020-03-20 08:00] VITALS: BP 100/54
[2020-03-20 12:00] VITALS: BP 100/62
[2020-03-20 16:00] VITALS: BP 118/4
[2020-03-20 20:00] VITALS: BP 97/50
[2020-03-21] VITALS: BP 113/62
[2020-03-21 04:00] VITALS: BP 117/49
[2020-03-21 06:53] LABS: BASO % 0.3 % (0.0-1.0); EOS # 0.3 10*3/uL (0.0-0.4); HEMATOCRIT 26.5 % (37.0-47.0); LYMPH # 1.4 10*3/uL (1.3-4.4); LYMPH % 22.8 % (27.0-41.0); MEAN CELL VOLUME 97.8 fl (81.0-99.0); MEAN CORPUSCULAR HGB 30.6 pg (27.0-31.0); MEAN CORPUSCULAR HGB CONC 31.3 g/dl (33.0-37.0); MONO # 0.3 10*3/uL (0.1-1.0); NEUT # 4.2 10*3/uL (2.3-7.9); NEUT % 67.1 % (47.0-73.0); PLATELET COUNT AUTOMATED 254 10*3/uL (130-400); RED BLOOD COUNT 2.71 10*6/uL (4.10-5.10); RED CELL DISTRI WIDTH 13.3 % (0-14.5); WHITE BLOOD COUNT 6.2 10*3/uL (4.8-10.8)
[2020-03-21 07:29] LABS: CREATININE 1.26 mg/dL (0.55-1.02); POTASSIUM 4.3 mmol/L (3.5-5.1)
[2020-03-21 08:00] VITALS: BP 110/49
[2020-03-21 12:00] VITALS: BP 103/52; BP 1103/52
[2020-03-21 16:00] VITALS: BP 114/79
[2020-03-21 20:00] VITALS: BP 126/74
[2020-03-22] VITALS: BP 115/42
[2020-03-22 04:00] VITALS: BP 124/56
[2020-03-22 07:06] LABS: BASO % 0.5 % (0.0-1.0); EOS # 0.3 10*3/uL (0.0-0.4); EOS % 4.6 % (1.0-4.0); HEMATOCRIT 30.8 % (37.0-47.0); LYMPH # 2.2 10*3/uL (1.3-4.4); LYMPH % 33.8 % (27.0-41.0); MEAN CELL VOLUME 99.7 fl (81.0-99.0); MEAN CORPUSCULAR HGB 31.1 pg (27.0-31.0); MEAN CORPUSCULAR HGB CONC 31.2 g/dl (33.0-37.0); MEAN PLATELET VOLUME 10.3 fl (9.6-12.3); MONO # 0.3 10*3/uL (0.1-1.0); MONO % 4.6 % (3.0-9.0); NEUT # 3.6 10*3/uL (2.3-7.9); NEUT % 55.6 % (47.0-73.0); PLATELET COUNT AUTOMATED 297 10*3/uL (130-400); RED BLOOD COUNT 3.09 10*6/uL (4.10-5.10); RED CELL DISTRI WIDTH 13.5 % (0-14.5); WHITE BLOOD COUNT 6.5 10*3/uL (4.8-10.8)
[2020-03-22 07:24] LABS: BUN 10 mg/dl (7-24); CHLORIDE 107 mmol/L (98-107); CREATININE 1.13 mg/dL (0.55-1.02); POTASSIUM 4.3 mmol/L (3.5-5.1); SODIUM 139 mmol/L (136-145)
[2020-03-22 08:00] VITALS: BP 129/58
[2020-03-22 12:00] VITALS: BP 141/68
[2020-03-22 16:00] VITALS: BP 116/62
[2020-03-22 20:00] VITALS: BP 115/61
[2020-03-23] VITALS: BP 126/65
[2020-03-23 07:01] LABS: BASO % 0.3 % (0.0-1.0); EOS # 0.2 10*3/uL (0.0-0.4); LYMPH # 1.7 10*3/uL (1.3-4.4); LYMPH % 29.2 % (27.0-41.0); MEAN CELL VOLUME 98.2 fl (81.0-99.0); MEAN CORPUSCULAR HGB 30.2 pg (27.0-31.0); MEAN CORPUSCULAR HGB CONC 30.7 g/dl (33.0-37.0); MEAN PLATELET VOLUME 9.5 fl (9.6-12.3); MONO # 0.3 10*3/uL (0.1-1.0); MONO % 5.7 % (3.0-9.0); NEUT # 3.4 10*3/uL (2.3-7.9); NEUT % 59.6 % (47.0-73.0); PLATELET COUNT AUTOMATED 282 10*3/uL (130-400); RED BLOOD COUNT 2.85 10*6/uL (4.10-5.10); RED CELL DISTRI WIDTH 13.3 % (0-14.5); WHITE BLOOD COUNT 5.8 10*3/uL (4.8-10.8)
[2020-03-23 07:20] LABS: BUN 9 mg/dl (7-24); CHLORIDE 104 mmol/L (98-107); CREATININE 0.99 mg/dL (0.55-1.02); POTASSIUM 3.9 mmol/L (3.5-5.1); SODIUM 139 mmol/L (136-145)
[2020-03-23 08:00] VITALS: BP 135/76
[2020-03-23 12:00] VITALS: BP 128/82
[2020-03-23] MEDS ORDERED: CUBICIN500 MG IV (12:25)
[2020-03-26] MEDS ORDERED: NEURONTIN800 MG PO (09:54)
[2020-05-02] MEDS ORDERED: VICTOZA 2-0.6 MG/0.1 SQ (09:34)
== END 2020-03-23 13:48 | disposition home or self-care (01) | DRG 862 ==
LOC: ED 16:42 → EDHOLD 20:48 → 5E 20:48 → EDHOLD 21:29 → ICCU 22:25 → 5E 03-18 10:52
PROVIDERS: Hospitalist; Internal Medicine; Physician Assistant; ADMIT Student in an Organized Health Care Education/Training Program; ATTEND Student in an Organized Health Care Education/Training Program
PROC: 02HV33Z Insertion of Infusion Device into Superior Vena Cava, Percutaneous Approach (ICD-10-PCS; principal; 2020-03-22)
DX: T81.41XA Infection following a procedure, superficial incisional surgical site, initial encounter (principal); J96.01 Acute respiratory failure with hypoxia; N17.0 Acute kidney failure with tubular necrosis; E44.0 Moderate protein-calorie malnutrition; F33.9 Major depressive disorder, recurrent, unspecified; L03.116 Cellulitis of left lower limb; I25.10 Atherosclerotic heart disease of native coronary artery without angina pectoris; K21.9 Gastro-esophageal reflux disease without esophagitis; M19.90 Unspecified osteoarthritis, unspecified site; M79.7 Fibromyalgia; E87.8 Other disorders of electrolyte and fluid balance, not elsewhere classified; D64.9 Anemia, unspecified; E83.41 Hypermagnesemia; R74.8 Abnormal levels of other serum enzymes; Z20.828 Contact with and (suspected) exposure to other viral communicable diseases; R79.82 Elevated C-reactive protein (CRP); B37.2 Candidiasis of skin and nail; E66.9 Obesity, unspecified; E11.22 Type 2 diabetes mellitus with diabetic chronic kidney disease; N18.32 Chronic kidney disease, stage 3b; W19.XXXA Unspecified fall, initial encounter; I12.9 Hypertensive chronic kidney disease with stage 1 through stage 4 chronic kidney disease, or unspecified chronic kidney disease; E11.65 Type 2 diabetes mellitus with hyperglycemia; Y83.8 Other surgical procedures as the cause of abnormal reaction of the patient, or of later complication, without mention of misadventure at the time of the procedure; E11.51 Type 2 diabetes mellitus with diabetic peripheral angiopathy without gangrene; E11.42 Type 2 diabetes mellitus with diabetic polyneuropathy; Z88.2 Allergy status to sulfonamides; Z91.041 Radiographic dye allergy status; Z68.32 Body mass index [BMI] 32.0-32.9, adult; Z88.0 Allergy status to penicillin; Z88.8 Allergy status to other drugs, medicaments and biological substances; Z88.1 Allergy status to other antibiotic agents; Z90.49 Acquired absence of other specified parts of digestive tract; Z95.1 Presence of aortocoronary bypass graft; Z98.51 Tubal ligation status; Z95.5 Presence of coronary angioplasty implant and graft; Z82.49 Family history of ischemic heart disease and other diseases of the circulatory system; Z79.899 Other long term (current) drug therapy; Z79.4 Long term (current) use of insulin; Z86.73 Personal history of transient ischemic attack (TIA), and cerebral infarction without residual deficits; Y93.89 Activity, other specified; Y92.89 Other specified places as the place of occurrence of the external cause; Y99.8 Other external cause status

== ENCOUNTER → 2020-04-07 | Outpatient (CLI) | payer MEDICARE ==
[~2020-04-07] MED LIST changes: +DILTIAZEM HCL120 M1 PO; +NEURONTIN800 MG PO; +VICTOZA 2-0.6 MG/0.1 SQ
== END | disposition home or self-care (01) ==
LOC: RESCLI 00:36
PROVIDERS: ATTEND Internal Medicine Nephrology
DX: R21 Rash and other nonspecific skin eruption (principal); E11.22 Type 2 diabetes mellitus with diabetic chronic kidney disease; N18.30 Chronic kidney disease, stage 3 unspecified; K21.9 Gastro-esophageal reflux disease without esophagitis; G62.9 Polyneuropathy, unspecified; I25.10 Atherosclerotic heart disease of native coronary artery without angina pectoris; I48.0 Paroxysmal atrial fibrillation; D50.9 Iron deficiency anemia, unspecified; F41.8 Other specified anxiety disorders; M79.7 Fibromyalgia; G25.81 Restless legs syndrome; M79.89 Other specified soft tissue disorders; E55.9 Vitamin D deficiency, unspecified; Z76.89 Persons encountering health services in other specified circumstances; Z79.899 Other long term (current) drug therapy; Z90.49 Acquired absence of other specified parts of digestive tract; Z98.890 Other specified postprocedural states; Z95.828 Presence of other vascular implants and grafts; Z88.8 Allergy status to other drugs, medicaments and biological substances; Z88.0 Allergy status to penicillin; Z23 Encounter for immunization

== ENCOUNTER → 2020-05-09 | Outpatient (CLI) | payer MEDICARE | END | disposition home or self-care (01) | LOC: RESCLI 00:29 | PROVIDERS: ATTEND Internal Medicine Nephrology | DX: M79.89 Other specified soft tissue disorders (principal); E55.9 Vitamin D deficiency, unspecified; E11.22 Type 2 diabetes mellitus with diabetic chronic kidney disease; N18.9 Chronic kidney disease, unspecified; K21.9 Gastro-esophageal reflux disease without esophagitis; G62.9 Polyneuropathy, unspecified; I25.10 Atherosclerotic heart disease of native coronary artery without angina pectoris; I48.0 Paroxysmal atrial fibrillation; D50.9 Iron deficiency anemia, unspecified; F41.8 Other specified anxiety disorders; R21 Rash and other nonspecific skin eruption; G25.81 Restless legs syndrome; M79.7 Fibromyalgia; Z79.899 Other long term (current) drug therapy; Z79.82 Long term (current) use of aspirin; Z88.0 Allergy status to penicillin; Z88.8 Allergy status to other drugs, medicaments and biological substances ==

== ENCOUNTER → 2020-06-22 | Outpatient (CLI) | payer MEDICARE | END | disposition home or self-care (01) | LOC: US 11:00 | PROVIDERS: ATTEND Podiatrist Foot & Ankle Surgery | DX: R59.9 Enlarged lymph nodes, unspecified (principal) ==

== ENCOUNTER → 2020-07-15 | Outpatient (CLI) | payer MEDICARE ==
[2020-07-15 12:07] LABS: IRON 59 ug/dL (50-170); TOTAL IRON BINDING CAPACITY 292 ug/dl (250-450)
== END | disposition home or self-care (01) ==
LOC: LAB 11:20
PROVIDERS: Internal Medicine; ATTEND Internal Medicine
DX: E11.22 Type 2 diabetes mellitus with diabetic chronic kidney disease (principal); D50.9 Iron deficiency anemia, unspecified

== ENCOUNTER → 2020-07-27 | Outpatient (CLI) | payer MEDICARE | END | disposition home or self-care (01) | LOC: RESCLI 00:32 | PROVIDERS: ATTEND Emergency Medicine | DX: I12.9 Hypertensive chronic kidney disease with stage 1 through stage 4 chronic kidney disease, or unspecified chronic kidney disease (principal); E11.22 Type 2 diabetes mellitus with diabetic chronic kidney disease; N18.9 Chronic kidney disease, unspecified; E55.9 Vitamin D deficiency, unspecified; K21.9 Gastro-esophageal reflux disease without esophagitis; F41.8 Other specified anxiety disorders; D50.9 Iron deficiency anemia, unspecified; M79.7 Fibromyalgia; G62.9 Polyneuropathy, unspecified; G25.81 Restless legs syndrome; J98.01 Acute bronchospasm; Z79.899 Other long term (current) drug therapy; Z79.82 Long term (current) use of aspirin ==

== ENCOUNTER 2020-08-05 02:12 | Emergency (ER) | payer MEDICARE ==
[~2020-08-05] VITALS: Ht 157.4 cm; Wt 100.2 kg
[2020-08-05 02:19] VITALS: BP 140/85
[2020-08-05 02:39] LABS: BASO % 0.3 % (0.0-1.0); EOS # 0.2 10*3/uL (0.0-0.4); EOS % 2.4 % (1.0-4.0); HEMATOCRIT 32.3 % (37.0-47.0); LYMPH # 1.7 10*3/uL (1.3-4.4); LYMPH % 23.5 % (27.0-41.0); MEAN CELL VOLUME 94.2 fl (81.0-99.0); MEAN CORPUSCULAR HGB 30.3 pg (27.0-31.0); MEAN CORPUSCULAR HGB CONC 32.2 g/dl (33.0-37.0); MEAN PLATELET VOLUME 10.1 fl (9.6-12.3); MONO # 0.5 10*3/uL (0.1-1.0); MONO % 6.1 % (3.0-9.0); NEUT % 67.6 % (47.0-73.0); PLATELET COUNT AUTOMATED 205 10*3/uL (130-400); RED BLOOD COUNT 3.43 10*6/uL (4.10-5.10); RED CELL DISTRI WIDTH 13.1 % (0-14.5); WHITE BLOOD COUNT 7.4 10*3/uL (4.8-10.8)
[2020-08-05 02:54] LABS: ALBUMIN 3.6 gm/dl (3.1-4.5); ALKALINE PHOSPHATASE 123 U/L (45-117); BUN 22 mg/dl (7-24); CHLORIDE 99 mmol/L (98-107); POTASSIUM 3.6 mmol/L (3.5-5.1); SGOT/AST 26 IU/L (3-35); SGPT/ALT 50 U/L (12-78); SODIUM 133 mmol/L (136-145); TOTAL PROTEIN 8.2 gm/dL (6.4-8.2)
[2020-08-05 03:13] LABS: ETHYL ALCOHOL < 3.0 mg/dl (<3)
[2020-08-05 03:24] LABS: BILIRUBIN Negative (Negative); BLOOD Negative (Negative); CLARITY Clear (Clear); COLOR Yellow (Yellow); GLUCOSE 2+ (Negative); KETONE Trace (Negative); LEUKO ESTERASE Negative (Negative); NITRITE Negative (Negative); PH 5.5 (4.5-8.0)
[2020-08-05 03:33] LABS: URINE AMPHETAMINES < 1000 (1000ng/ml); URINE BARBITURATES < 200 (200ng/ml); URINE BENZODIAZEPINES < 200 (200ng/ml); URINE CANNABINOIDS (THC) < 50 (50ng/ml); URINE COCAINE < 300 (300ng/ml); URINE METHADONE < 300 (300ng/ml); URINE OPIATES < 300 (300ng/ml)
[2020-08-05 03:34] LABS: URINE PHENCYCLIDINE < 25 (25ng/ml)
== END 2020-08-05 05:29 | disposition home or self-care (01) ==
LOC: ED 02:12
PROVIDERS: Internal Medicine
DX: F29 Unspecified psychosis not due to a substance or known physiological condition (principal); R73.9 Hyperglycemia, unspecified; R41.82 Altered mental status, unspecified; Z98.51 Tubal ligation status; Z98.890 Other specified postprocedural states; Z90.49 Acquired absence of other specified parts of digestive tract; Z95.5 Presence of coronary angioplasty implant and graft; Z79.899 Other long term (current) drug therapy; Z88.1 Allergy status to other antibiotic agents; Z88.8 Allergy status to other drugs, medicaments and biological substances; Z88.0 Allergy status to penicillin; Z91.041 Radiographic dye allergy status

== ENCOUNTER 2020-08-26 18:17 | Emergency (ER) | payer MEDICARE ==
[2020-08-26 19:44] VITALS: BP 151/60
[2020-08-26 19:47] LABS: BASO % 0.4 % (0.0-1.0); EOS # 0.3 10*3/uL (0.0-0.4); EOS % 2.6 % (1.0-4.0); HEMATOCRIT 30.3 % (37.0-47.0); LYMPH % 20.1 % (27.0-41.0); MEAN CELL VOLUME 95.3 fl (81.0-99.0); MEAN CORPUSCULAR HGB 31.1 pg (27.0-31.0); MEAN CORPUSCULAR HGB CONC 32.7 g/dl (33.0-37.0); MEAN PLATELET VOLUME 10.1 fl (9.6-12.3); MONO # 0.5 10*3/uL (0.1-1.0); MONO % 4.9 % (3.0-9.0); NEUT % 71.7 % (47.0-73.0); PLATELET COUNT AUTOMATED 212 10*3/uL (130-400); RED BLOOD COUNT 3.18 10*6/uL (4.10-5.10); RED CELL DISTRI WIDTH 13.6 % (0-14.5); WHITE BLOOD COUNT 9.7 10*3/uL (4.8-10.8)
[2020-08-26 19:58] LABS: ACT PARTIAL THROMBO TIME 26.8 SECONDS (20.0-32.1)
[2020-08-26 20:05] LABS: ALBUMIN 3.9 gm/dl (3.1-4.5); ALKALINE PHOSPHATASE 144 U/L (45-117); BUN 10 mg/dl (7-24); CHLORIDE 98 mmol/L (98-107); CREATININE 1.33 mg/dL (0.55-1.02); POTASSIUM 3.2 mmol/L (3.5-5.1); SGOT/AST 12 IU/L (3-35); SGPT/ALT 39 U/L (12-78); SODIUM 135 mmol/L (136-145); TOTAL PROTEIN 8.1 gm/dL (6.4-8.2)
[2020-08-26 20:12] LABS: TROPONIN I < 0.015 ng/ml (<0.045)
[2020-08-26 23:29] LABS: BILIRUBIN Negative (Negative); BLOOD Negative (Negative); CLARITY Clear (Clear); COLOR Yellow (Yellow); GLUCOSE 2+ (Negative); KETONE Negative (Negative); LEUKO ESTERASE Negative (Negative); NITRITE Negative (Negative); SPECIFIC GRAVITY <= 1.005 (1.001-1.030); UROBILINOGEN 0.2 E.U./dl (0.0-1.0)
[2020-08-26 23:48] LABS: EPITHELIAL CELLS 16-20
== END 2020-08-27 06:10 | disposition home or self-care (01) ==
LOC: ED 18:17
PROVIDERS: Emergency Medicine
DX: R07.89 Other chest pain (principal); I12.9 Hypertensive chronic kidney disease with stage 1 through stage 4 chronic kidney disease, or unspecified chronic kidney disease; E11.22 Type 2 diabetes mellitus with diabetic chronic kidney disease; N18.30 Chronic kidney disease, stage 3 unspecified; F32.9 Major depressive disorder, single episode, unspecified; I25.10 Atherosclerotic heart disease of native coronary artery without angina pectoris; E66.01 Morbid (severe) obesity due to excess calories; Z88.2 Allergy status to sulfonamides; Z79.4 Long term (current) use of insulin; Z88.8 Allergy status to other drugs, medicaments and biological substances; Z88.0 Allergy status to penicillin; Z91.041 Radiographic dye allergy status; Z95.1 Presence of aortocoronary bypass graft; Z98.890 Other specified postprocedural states; Z90.49 Acquired absence of other specified parts of digestive tract; Z95.818 Presence of other cardiac implants and grafts; Z98.51 Tubal ligation status

== ENCOUNTER 2020-08-28 11:02 | Emergency (ER) | payer MEDICARE ==
[~2020-08-28] VITALS: Wt 90.7 kg
[2020-08-28 14:32] LABS: BILIRUBIN Negative (Negative); BLOOD Trace-Lysed (Negative); CLARITY Clear (Clear); COLOR Yellow (Yellow); GLUCOSE 2+ (Negative); KETONE Negative (Negative); LEUKO ESTERASE Negative (Negative); NITRITE Negative (Negative); PH 7.5 (4.5-8.0); UROBILINOGEN 0.2 E.U./dl (0.0-1.0)
[2020-08-28 14:39] LABS: URINE AMPHETAMINES < 1000 (1000ng/ml); URINE BARBITURATES < 200 (200ng/ml); URINE BENZODIAZEPINES < 200 (200ng/ml); URINE CANNABINOIDS (THC) < 50 (50ng/ml); URINE COCAINE < 300 (300ng/ml); URINE METHADONE < 300 (300ng/ml); URINE OPIATES < 300 (300ng/ml)
[2020-08-28 14:43] LABS: URINE PHENCYCLIDINE < 25 (25ng/ml)
[2020-08-28 14:49] LABS: EPITHELIAL CELLS 0-2; RBC 0-2 rbc/hpf (0-2)
[2020-08-28 15:37] LABS: HEMATOCRIT 31.3 % (37.0-47.0); MEAN CELL VOLUME 97.8 fl (81.0-99.0); MEAN CORPUSCULAR HGB 30.9 pg (27.0-31.0); MEAN CORPUSCULAR HGB CONC 31.6 g/dl (33.0-37.0); MEAN PLATELET VOLUME 10.4 fl (9.6-12.3); PLATELET COUNT AUTOMATED 215 10*3/uL (130-400); RED CELL DISTRI WIDTH 14.1 % (0-14.5); WHITE BLOOD COUNT 9.5 10*3/uL (4.8-10.8)
[2020-08-28 15:53] LABS: ALBUMIN 3.5 gm/dl (3.1-4.5); ALKALINE PHOSPHATASE 121 U/L (45-117); BUN 7 mg/dl (7-24); CHLORIDE 103 mmol/L (98-107); CPK 110 U/L (26-192); CREATININE 1.21 mg/dL (0.55-1.02); POTASSIUM 3.5 mmol/L (3.5-5.1); SGOT/AST 13 IU/L (3-35); SGPT/ALT 29 U/L (12-78); SODIUM 136 mmol/L (136-145); TOTAL PROTEIN 7.8 gm/dL (6.4-8.2)
[2020-08-28 15:55] LABS: PLATELET SUFFICIENCY NORMAL (NORMAL); TOTAL CELLS COUNTED 100 #CELLS
[2020-08-28 16:02] LABS: ETHYL ALCOHOL < 3.0 mg/dl (<3)
[2020-08-28 22:08] VITALS: BP 135/64
== END 2020-08-29 00:54 ==
LOC: ED 11:02
PROVIDERS: Emergency Medicine
DX: F29 Unspecified psychosis not due to a substance or known physiological condition (principal); Z20.822 Contact with and (suspected) exposure to COVID-19; L89.154 Pressure ulcer of sacral region, stage 4; I25.10 Atherosclerotic heart disease of native coronary artery without angina pectoris; I12.9 Hypertensive chronic kidney disease with stage 1 through stage 4 chronic kidney disease, or unspecified chronic kidney disease; E11.22 Type 2 diabetes mellitus with diabetic chronic kidney disease; N18.30 Chronic kidney disease, stage 3 unspecified; K21.9 Gastro-esophageal reflux disease without esophagitis; E11.9 Type 2 diabetes mellitus without complications; F32.9 Major depressive disorder, single episode, unspecified; E66.01 Morbid (severe) obesity due to excess calories; E11.40 Type 2 diabetes mellitus with diabetic neuropathy, unspecified; E11.51 Type 2 diabetes mellitus with diabetic peripheral angiopathy without gangrene; Z88.2 Allergy status to sulfonamides; Z88.1 Allergy status to other antibiotic agents; Z91.041 Radiographic dye allergy status; Z91.048 Other nonmedicinal substance allergy status; Z88.0 Allergy status to penicillin; Z88.8 Allergy status to other drugs, medicaments and biological substances; Z79.899 Other long term (current) drug therapy; Z79.4 Long term (current) use of insulin; Z95.5 Presence of coronary angioplasty implant and graft; Z89.429 Acquired absence of other toe(s), unspecified side; Z98.51 Tubal ligation status; Z90.49 Acquired absence of other specified parts of digestive tract

== ENCOUNTER 2020-09-30 11:43 | Emergency (ER) | payer MEDICARE ==
[~2020-09-30] VITALS: Ht 175.2 cm; Wt 89.8 kg
[2020-09-30 11:53] VITALS: BP 94/55
== END 2020-09-30 12:58 | disposition left against medical advice (07) ==
LOC: ED 11:43
DX: E11.621 Type 2 diabetes mellitus with foot ulcer (principal); L97.519 Non-pressure chronic ulcer of other part of right foot with unspecified severity; Z88.2 Allergy status to sulfonamides; Z88.8 Allergy status to other drugs, medicaments and biological substances; Z88.1 Allergy status to other antibiotic agents; Z91.041 Radiographic dye allergy status; Z91.048 Other nonmedicinal substance allergy status; Z88.0 Allergy status to penicillin; Z79.899 Other long term (current) drug therapy; Z79.4 Long term (current) use of insulin; Z95.818 Presence of other cardiac implants and grafts; Z90.49 Acquired absence of other specified parts of digestive tract; Z98.51 Tubal ligation status; Z53.29 Procedure and treatment not carried out because of patient's decision for other reasons